=== PATIENT | female | born 1990 | race African-American/Black ===

== ENCOUNTER 2017-03-14 14:04 | Emergency (ER) | payer MEDICARE, OTHER ==
[~2017-03-14] VITALS: Ht 170.2 cm; Wt 113.4 kg
[2017-03-14 15:15] LABS: Basophils # (auto) 0 uL; Basophils % (auto) 0.4 % (0.0-2.0); Eosinophils # (auto) 0 uL; Eosinophils % (auto) 0.7 % (0.0-7.0); Hematocrit 39.9 % (36.0-46.0); Hemoglobin 12.9 g/dL (12.2-16.2); Lymphocytes # (auto) 1.3 uL; Lymphocytes % (auto) 18.8 % (10.0-50.0); Mean Corpuscular Hemoglobin 27.1 pg (28.0-32.0); Mean Corpuscular Hgb Conc. 32.5 g/dL (32.0-36.0); Mean Corpuscular Volume 83.5 fL (80.0-100.0); Mean Platelet Volume 7.5 fL (6.9-10.8); Monocytes # (auto) 0.8 uL; Monocytes % (auto) 11.4 % (0.0-12.0); Neutrophils # (auto) 4.6 uL; Neutrophils % (auto) 68.7 % (37.0-80.0); Nucleated Red Blood Cells % 0.1 %; Platelet Count (auto) 250 10^3/uL (140-450); Red Cell Distribution Width 13.9 % (11.8-14.3); White Blood Cell 6.7 10^3/uL (4.4-10.8)
[2017-03-14 15:34] LABS: Albumin 3.4 g/dL (3.4-5.0); BUN/Creatinine Ratio 13.2; Bilirubin, Total 0.6 mg/dL (0.2-1.0); Calcium 8.2 mg/dL (8.5-10.1); Potassium 3.7 mmol/L (3.5-5.1); Total Protein 7.5 g/dL (6.4-8.2)
[2017-03-14 15:52] LABS: Urine Bilirubin Negative (Negative); Urine Blood Negative /uL (Negative); Urine Color Yellow (Yellow); Urine Glucose Normal (Normal); Urine Ketone Negative (Negative); Urine Mucus FEW (None Seen); Urine Nitrite Negative (Negative); Urine RBC 2 /hpf (0 - 4); Urine Squamous Epithelial Cell FEW /hpf (<5); Urine Urobilinogen Normal (Negative)
[2017-03-14] MEDS ORDERED: cloNIDine HCL 0.1 MG TAB PO ONE (16:00)
[2017-03-14] MEDS ORDERED: HYDROcodone-ACET 10/325MG TAB PO ONE (17:15)
[2017-03-14 18:30] VITALS: BP 148/92
== END 2017-03-14 19:46 | disposition home or self-care (01) ==
LOC: ER 14:04
DX: R07.89 Other chest pain (principal); I10 Essential (primary) hypertension; R51 Headache; F17.210 Nicotine dependence, cigarettes, uncomplicated; Z86.73 Personal history of transient ischemic attack (TIA), and cerebral infarction without residual deficits
CPT/HCPCS: 36415; 70450; 71020; 80053; 81001; 81025; 84484; 85025; 93005

== ENCOUNTER 2018-03-20 18:36 | Emergency (ER) | payer MEDICARE, OTHER ==
[~2018-03-20] VITALS: Ht 157.5 cm; Wt 81.6 kg
[2018-03-20] MEDS ORDERED: SODIUM CHLORIDE 0.9% 1,000 ML IVB ONE (19:19)
[2018-03-20] MEDS ORDERED: PROCHLORPERAZINE EDISYLATE 5 MG/ML 2ML VIAL IV ONE (19:30)
[2018-03-20] MEDS ORDERED: MORPHINE SULFATE 4 MG/ML SYR/VIAL IV ONE (19:30)
[2018-03-20] MEDS ORDERED: PANTOPRAZOLE 40 MG/10 ML VIAL IV ONE (19:30)
[2018-03-20 20:31] LABS: Basophils # (auto) 0.1 uL; Basophils % (auto) 1.3 % (0.0-2.0); Eosinophils # (auto) 0.1 uL; Eosinophils % (auto) 1.1 % (0.0-7.0); Hematocrit 40.6 % (36.0-46.0); Hemoglobin 12.9 g/dL (12.2-16.2); Lymphocytes # (auto) 1.2 uL; Lymphocytes % (auto) 15.9 % (10.0-50.0); Mean Corpuscular Hemoglobin 26.3 pg (28.0-32.0); Mean Corpuscular Hgb Conc. 31.9 g/dL (32.0-36.0); Mean Corpuscular Volume 82.3 fL (80.0-100.0); Monocytes # (auto) 0.7 uL; Monocytes % (auto) 9.5 % (0.0-12.0); Neutrophils # (auto) 5.6 uL; Neutrophils % (auto) 72.2 % (37.0-80.0); Nucleated Red Blood Cells % 0.1 %; Platelet Count (auto) 296 10^3/uL (140-450); Red Blood Cells 4.93 10^6/uL (4.0-5.20); Red Cell Distribution Width 14.8 % (11.8-14.3); White Blood Cell 7.8 10^3/uL (4.4-10.8)
[2018-03-20 20:34] LABS: Alanine Aminotransferase 21 U/L (13-56); Albumin 3.7 g/dL (3.4-5.0); Anion Gap 9 (5-15); Aspartate Aminotransferase 13 U/L (15-37); BUN/Creatinine Ratio 10.5; Blood Urea Nitrogen 8 mg/dL (7-18); Calcium 7.8 mg/dL (8.5-10.1); Carbon Dioxide 25 mmol/L (21-32); Chloride 102 mmol/L (98-107); GFR African American 117 mL/min; GFR Non-African American 96 mL/min; Glucose 98 mg/dL (74-106); Magnesium 2.2 mg/dL (1.6-2.6); Potassium 3.4 mmol/L (3.5-5.1); Sodium 136 mmol/L (136-145)
[2018-03-20 20:39] LABS: Alkaline Phosphatase 97 U/L (45-117); Bilirubin, Total 0.4 mg/dL (0.2-1.0); Total Protein 8.2 g/dL (6.4-8.2)
[2018-03-20] MEDS ORDERED: traMADol HCL 50 MG TAB PO ONE (21:15)
[2018-03-20 22:00] VITALS: BP 150/98
== END 2018-03-20 22:05 | disposition home or self-care (01) ==
LOC: EDBD 18:36 → ER 18:41
DX: R07.9 Chest pain, unspecified (principal); F17.210 Nicotine dependence, cigarettes, uncomplicated; I10 Essential (primary) hypertension; Z86.73 Personal history of transient ischemic attack (TIA), and cerebral infarction without residual deficits
CPT/HCPCS: 36415; 71045; 80053; 83735; 84484; 84702; 85025; 93005; 94761; 99284; J7030

== ENCOUNTER 2018-10-15 09:30 | Emergency (ER) | payer MEDICARE, OTHER ==
[~2018-10-15] VITALS: Ht 160 cm; Wt 81.6 kg
[2018-10-15] MEDS ORDERED: SODIUM CHLORIDE 0.9% 1,000 ML IV ONE (09:36)
[2018-10-15] MEDS ORDERED: ASPirin 81 mg TAB PO ONE (09:45)
[2018-10-15 10:13] LABS: Basophils # (auto) 0 uL; Basophils % (auto) 0.3 % (0.0-2.0); Eosinophils # (auto) 0 uL; Eosinophils % (auto) 0.2 % (0.0-7.0); Hematocrit 41.8 % (36.0-46.0); Hemoglobin 13.7 g/dL (12.2-16.2); Lymphocytes # (auto) 0.9 uL; Lymphocytes % (auto) 11.5 % (10.0-50.0); Mean Corpuscular Hgb Conc. 32.8 g/dL (32.0-36.0); Mean Corpuscular Volume 82.4 fL (80.0-100.0); Monocytes # (auto) 0.4 uL; Monocytes % (auto) 5.4 % (0.0-12.0); Neutrophils # (auto) 6.4 uL; Neutrophils % (auto) 82.6 % (37.0-80.0); Platelet Count (auto) 239 10^3/uL (140-450); Red Blood Cells 5.07 10^6/uL (4.0-5.20); Red Cell Distribution Width 14.5 % (11.8-14.3); White Blood Cell 7.8 10^3/uL (4.4-10.8)
[2018-10-15 10:32] LABS: Albumin 3.8 g/dL (3.4-5.0); Anion Gap 5 (5-15); Blood Urea Nitrogen 16 mg/dL (7-18); Calcium 9.2 mg/dL (8.5-10.1); Carbon Dioxide 31 mmol/L (21-32); Chloride 101 mmol/L (98-107); Glucose 102 mg/dL (74-106); Potassium 3.5 mmol/L (3.5-5.1); Sodium 137 mmol/L (136-145)
[2018-10-15 10:41] LABS: Alanine Aminotransferase 23 U/L (13-56); Alkaline Phosphatase 85 U/L (45-117); Aspartate Aminotransferase 17 U/L (15-37); BUN/Creatinine Ratio 16.2; Bilirubin, Total 0.7 mg/dL (0.2-1.0); GFR African American 86 mL/min; GFR Non-African American 71 mL/min
[2018-10-15 12:00] LABS: Urine Bacteria FEW /hpf (None Seen); Urine Blood Negative /uL (Negative); Urine Hyaline Cast FEW /lpf (0 - 2); Urine Specific Gravity 1.018 (1.001-1.035); Urine WBC 1 /hpf (0 - 5)
[2018-10-15 13:13] VITALS: BP 130/86
== END 2018-10-15 13:26 | disposition home or self-care (01) ==
LOC: EDBD 09:30 → ER 09:30
DX: R07.89 Other chest pain (principal); F41.9 Anxiety disorder, unspecified; R41.82 Altered mental status, unspecified; I10 Essential (primary) hypertension; Z86.73 Personal history of transient ischemic attack (TIA), and cerebral infarction without residual deficits
CPT/HCPCS: 36415; 71045; 80053; 81001; 84484; 85025; 93005; 96360; 96361; 99284; J7030

== ENCOUNTER 2018-10-23 21:27 | Emergency (ER) | payer MEDICARE, OTHER ==
[~2018-10-23] VITALS: Ht 167.6 cm; Wt 81.6 kg
[2018-10-23 22:31] LABS: Urine WBC None Seen /hpf (0 - 5)
[2018-10-23 22:40] LABS: Eosinophils # (auto) 0.1 uL; Lymphocytes # (auto) 1.8 uL; Monocytes # (auto) 0.8 uL; Monocytes % (auto) 10.3 % (0.0-12.0); Platelet Count (auto) 246 10^3/uL (140-450); White Blood Cell 7.8 10^3/uL (4.4-10.8)
[2018-10-23 22:41] LABS: Basophils # (auto) 0 uL; Basophils % (auto) 0.6 % (0.0-2.0); Hematocrit 40.4 % (36.0-46.0); Hemoglobin 13.2 g/dL (12.2-16.2); Mean Corpuscular Hemoglobin 27.2 pg (28.0-32.0); Mean Corpuscular Hgb Conc. 32.8 g/dL (32.0-36.0); Mean Corpuscular Volume 82.9 fL (80.0-100.0); Neutrophils # (auto) 5.1 uL; Neutrophils % (auto) 65.1 % (37.0-80.0); Red Blood Cells 4.87 10^6/uL (4.0-5.20); Red Cell Distribution Width 14.2 % (11.8-14.3)
[2018-10-23 22:45] LABS: Urine Bacteria FEW /hpf (None Seen); Urine Blood Negative /uL (Negative)
[2018-10-23 22:50] LABS: Albumin 3.7 g/dL (3.4-5.0); Anion Gap 5 (5-15); Blood Urea Nitrogen 12 mg/dL (7-18); Calcium 8.6 mg/dL (8.5-10.1); Carbon Dioxide 26 mmol/L (21-32); Chloride 108 mmol/L (98-107); Glucose 98 mg/dL (74-106); INR 1.01 (0.9-1.15); Partial Thromboplastin Time 26.2 sec (23.64-32.05); Potassium 3.7 mmol/L (3.5-5.1); Sodium 139 mmol/L (136-145)
[2018-10-23 22:56] LABS: Alcohol, Urine < 3.0 mg/dL (0-5); Amphetamine Screen, Urine NEGATIVE (NEGATIVE); Barbiturate Scree,Urine NEGATIVE (NEGATIVE); Benzodiazephine Screen, Urine NEGATIVE (NEGATIVE); Cannabinoid Screen, Urine NEGATIVE (NEGATIVE); Cocaine Screen, Urine NEGATIVE (NEGATIVE); Opiate Scree,Urine NEGATIVE (NEGATIVE); Phencyclidine Screen, Urine NEGATIVE (NEGATIVE)
[2018-10-23] MEDS ORDERED: ONDANSETRON HCL 4 MG/2 ML VIAL IV ONE (23:00)
[2018-10-23] MEDS ORDERED: MORPHINE SULF INJ 2 MG/ML SYRINGE 1ML IV ONE (23:00)
[2018-10-23] MEDS ORDERED: LABETALOL HCL 5 MG/ML ML 20ML VIAL IV ONE (23:00)
[2018-10-23 23:04] LABS: Alanine Aminotransferase 28 U/L (13-56); Alkaline Phosphatase 84 U/L (45-117); Aspartate Aminotransferase 18 U/L (15-37); Bilirubin, Total 0.7 mg/dL (0.2-1.0); GFR African American 85 mL/min; GFR Non-African American 70 mL/min
[2018-10-24] MEDS ORDERED: LABETALOL HCL 5 MG/ML ML 20ML VIAL IV ONE
[2018-10-24 00:14] VITALS: BP 131/96
== END 2018-10-24 00:40 | disposition home or self-care (01) ==
LOC: EDBD 21:27 → ER 21:33
DX: I16.0 Hypertensive urgency (principal); Z86.73 Personal history of transient ischemic attack (TIA), and cerebral infarction without residual deficits; Z91.19 Patient's noncompliance with other medical treatment and regimen
CPT/HCPCS: 36415; 70450; 71045; 80053; 80307; 81001; 83880; 84484; 84702; 85025; 85610; 85730; 93005; 94761; 96374; 96375; 99284; J2270; J2405; J7030

== ENCOUNTER 2018-11-29 14:11 | Inpatient (IN) | payer MEDICARE, OTHER ==
[~2018-11-29] VITALS: Ht 162.6 cm; Wt 74.3 kg
[2018-11-29] MEDS ORDERED: SODIUM CHLORIDE 0.9% 1,000 ML IVB ONE (14:26)
[2018-11-29] MEDS ORDERED: MORPHINE SULFATE 4 MG/ML SYR/VIAL IV ONE (14:30)
[2018-11-29] MEDS ORDERED: FAMOTIDINE (10MG/ML) 2ML VL IV ONE (14:30)
[2018-11-29] MEDS ORDERED: ONDANSETRON HCL 4 MG/2 ML VIAL IV ONE (14:30)
[2018-11-29 15:42] LABS: Basophils # (auto) 0 uL; Basophils % (auto) 0.5 % (0.0-2.0); Eosinophils # (auto) 0 uL; Monocytes # (auto) 0.5 uL; Neutrophils % (auto) 80.6 % (37.0-80.0); White Blood Cell 7.5 10^3/uL (4.4-10.8)
[2018-11-29 15:49] LABS: Eosinophils % (auto) 0.5 % (0.0-7.0); Hematocrit 38.9 % (36.0-46.0); Hemoglobin 12.8 g/dL (12.2-16.2); Lymphocytes # (auto) 0.8 uL; Lymphocytes % (auto) 11.3 % (10.0-50.0); Mean Corpuscular Hemoglobin 27.2 pg (28.0-32.0); Mean Corpuscular Hgb Conc. 32.8 g/dL (32.0-36.0); Mean Corpuscular Volume 82.7 fL (80.0-100.0); Monocytes % (auto) 7.1 % (0.0-12.0); Nucleated Red Blood Cells % 0.1 %; Platelet Count (auto) 230 10^3/uL (140-450); Red Blood Cells 4.71 10^6/uL (4.0-5.20); Red Cell Distribution Width 13.9 % (11.8-14.3)
[2018-11-29 15:59] LABS: Albumin 3.6 g/dL (3.4-5.0); BUN/Creatinine Ratio 9.1; Calcium 8.2 mg/dL (8.5-10.1); Magnesium 2.1 mg/dL (1.6-2.6); Potassium 3.3 mmol/L (3.5-5.1)
[2018-11-29 16:09] LABS: Urine Amorphous Crystal FEW /hpf (None Seen); Urine Bacteria FEW /hpf (None Seen); Urine Blood 2+ /uL (Negative); Urine Mucus FEW (None Seen); Urine Specific Gravity 1.019 (1.001-1.035); Urine WBC 7 /hpf (0 - 5)
[2018-11-29 16:14] LABS: Bilirubin, Total 0.6 mg/dL (0.2-1.0); Total Protein 7.4 g/dL (6.4-8.2)
[2018-11-29] MEDS ORDERED: hydrALAZINE HCL 20 MG/ML VL IV ONE (16:45)
[2018-11-29] MEDS ORDERED: cefTRIAXone 1GM/50ML D5W 50 ML IV ONE (16:45)
[2018-11-29] MEDS ORDERED: PROMETHAZINE HCL 25 MG/ML 1ML IV PRN (18:30)
[2018-11-29] MEDS ORDERED: ACETAMINOPHEN 500 MG TAB PO PRN (18:30)
[2018-11-29] MEDS ORDERED: traMADol HCL 50 MG TAB PO PRN (18:30)
[2018-11-29] MEDS ORDERED: TEMAZEPAM 15 MG CAP PO PRN (18:30)
[2018-11-29] MEDS ORDERED: NITROGLYCERIN 0.4 MG SL TAB SL PRN (18:30)
[2018-11-29] MEDS ORDERED: MORPHINE SULF INJ 2 MG/ML SYRINGE 1ML IV PRN (18:30)
[2018-11-29 21:43] VITALS: BP 144/97
--- NOTE | 2018-11-29 22:00 | NUR ---
admitted to room 212A. Alert and oriented x4. Ambulatory, steady gait. Complaining of N/V and epigastric pain. IV to R hand 18 g patent. BP meds to be given. Patient states she doesnt take any medications at home. Skin warm dry and intact. Crackers and sandwich given per pt request. Oriented to room and hospital policies. Verbalized understanding.
[2018-11-29] MEDS: hydrALAZINE HCL 25 MG TAB PO SCH (23:29)
[2018-11-30 00:10] LABS: Alcohol, Urine < 3.0 mg/dL (0-5); Amphetamine Screen, Urine NEGATIVE (NEGATIVE); Barbiturate Scree,Urine NEGATIVE (NEGATIVE); Benzodiazephine Screen, Urine NEGATIVE (NEGATIVE); Cannabinoid Screen, Urine NEGATIVE (NEGATIVE); Cocaine Screen, Urine NEGATIVE (NEGATIVE); Opiate Scree,Urine NEGATIVE (NEGATIVE); Phencyclidine Screen, Urine NEGATIVE (NEGATIVE)
--- NOTE | 2018-11-30 02:00 | NUR ---
Patient states " Im super nauseous and i vomited and filled up a green bag. Patient had already dumped the emesis in the toilet. Advised her to call me next time and Ill take a look. Nausea medicine given per orders.
[2018-11-30 05:19] VITALS: BP 156/111
[2018-11-30] MEDS: hydrALAZINE HCL 25 MG TAB PO SCH ×3 (06:00→21:43)
--- NOTE | 2018-11-30 08:00 | NUR ---
PATIENT AWAKE ALERT ORIENTED TIMES 4 DENIES ANY CHEST PIN AT THIS TIME NO SIGNS OF DISTRESS.
[2018-11-30 09:00] VITALS: BP 142/96
[2018-11-30] MEDS ORDERED: NITROGLYCERIN 0.2MG/HR TOPICAL PATCH TD SCH (10:00)
[2018-11-30] MEDS ORDERED: ENALAPRIL MALEATE 10 MG TAB PO SCH (10:00)
[2018-11-30 10:05] LABS: Cholesterol 121 mg/dL (< 200); Triglycerides 32 mg/dL (< 150)
[2018-11-30 10:10] LABS: HDL Cholesterol 48 mg/dL (40-59); LDL Cholesterol 66 mg/dL (< 100)
[2018-11-30] MEDS: NITROGLYCERIN 0.2MG/HR TOPICAL PATCH TD SCH (10:36)
[2018-11-30] MEDS: PANTOPRAZOLE 40 MG TAB PO SCH (10:36)
[2018-11-30] MEDS: ENOXAPARIN SOD 40 MG/0.4 ML SYRINGE SC SCH (10:36)
[2018-11-30] MEDS: ASPirin 81 mg TAB PO SCH (10:37)
[2018-11-30] MEDS ORDERED: ENALAPRIL MALEATE 2.5 MG TAB PO ONE (10:45)
[2018-11-30] MEDS ORDERED: METOPROLOL TARTRATE 25 MG TAB PO ONE (10:45)
[2018-11-30] MEDS ORDERED: CLO01T PO (10:57)
--- NOTE | 2018-11-30 11:00 | NUR ---
CARDIOLOGY CONSULT BY SHANIA. STRESS TEST ORDERED.
[2018-11-30] MEDS ORDERED: ADENOSINE 62 MG in GIVE UN-DILUTED 0 ML IV STA (11:31)
[2018-11-30 13:00] VITALS: BP 148/107
[2018-11-30 17:21] VITALS: BP 145/105
--- NOTE | 2018-11-30 18:54 | NUR ---
PATIENT WASHED UP AND ACCIDENTALLY PULLED OUT IV AND IS REFUSING ANOTHER IV AT THIS TIME.
--- NOTE | 2018-11-30 19:50 | NUR ---
Opening shift Note Pt transferred to room 221-A in stable cond. Pt amb halls and observed to have steady gait. Pt denies any chest pain or SOB. POC discussed with pt and pt verbalized understanding. Will continue to monitor q 1 hr and prn. Bed is low, wheels are locked, and call light is with in reach.
[2018-11-30] MEDS: METOPROLOL TARTRATE 25 MG TAB PO SCH (21:44)
[2018-11-30 21:54] VITALS: BP 159/106
[2018-12-01 05:09] VITALS: BP 158/96
[2018-12-01] MEDS: hydrALAZINE HCL 25 MG TAB PO SCH ×3 (06:26→21:34)
[2018-12-01] MEDS: LACTULOSE 20Gm/30ML SOLN PO PRN (06:29)
[2018-12-01 09:00] VITALS: BP 152/89
[2018-12-01] MEDS: ASPirin 81 mg TAB PO SCH (09:35)
[2018-12-01] MEDS: ENOXAPARIN SOD 40 MG/0.4 ML SYRINGE SC SCH (09:36)
[2018-12-01] MEDS: PANTOPRAZOLE 40 MG TAB PO SCH (09:37)
[2018-12-01] MEDS: ENALAPRIL MALEATE 10 MG TAB PO SCH (09:37)
[2018-12-01] MEDS: NITROGLYCERIN 0.2MG/HR TOPICAL PATCH TD SCH (09:39)
[2018-12-01] MEDS: METOPROLOL TARTRATE 25 MG TAB PO SCH ×2 (09:39→21:35)
[2018-12-01 13:00] VITALS: BP 147/92
[2018-12-01 16:40] VITALS: BP 139/92
--- NOTE | 2018-12-01 19:30 | NUR ---
Opening Shift Note Assumed care of patient, awake and alert x4. Patient denies pain at this time. No S/S of distress/SOB noted. Instructed on plan of care and to call for assistance as needed. Bed is locked in lowest position, side rails x 2 are up, and call light is within reach.
--- NOTE | 2018-12-01 22:50 | NUR ---
IV INSERTION IV access obtained, via clean sterile technique by inserting 22 gauge catheter at left hand after 1 attempt. IV secured properly. No trauma to site. Patient tolerated well.
[2018-12-01 23:06] VITALS: BP 150/99
[2018-12-02] MEDS: hydrALAZINE HCL 25 MG TAB PO SCH ×3 (05:26→21:20)
[2018-12-02 06:01] VITALS: BP 150/95
[2018-12-02 09:00] VITALS: BP 161/114
--- NOTE | 2018-12-02 09:12 | NUR ---
PAGED DR JETER TO READ STRESS TEST AND ECHO AND PLACE A NOTE IF PATIENT IS CLEARED FOR DISCHARGE.
[2018-12-02] MEDS: ASPirin 81 mg TAB PO SCH (09:39)
[2018-12-02] MEDS: PANTOPRAZOLE 40 MG TAB PO SCH (09:40)
[2018-12-02] MEDS: ENALAPRIL MALEATE 10 MG TAB PO SCH (09:40)
[2018-12-02] MEDS: METOPROLOL TARTRATE 25 MG TAB PO SCH ×2 (09:40→21:20)
[2018-12-02] MEDS: NITROGLYCERIN 0.2MG/HR TOPICAL PATCH TD SCH (09:41)
[2018-12-02] MEDS: ENOXAPARIN SOD 40 MG/0.4 ML SYRINGE SC SCH (09:41)
[2018-12-02] MEDS ORDERED: ENALAPRIL MALEATE 10 MG TAB PO ONE (12:00)
--- NOTE | 2018-12-02 12:02 | NUR ---
SPOKE TO DR KING HE SAID HE WANTS BETTER BLOOD PRESSURE CONTROL. NEW ORDERS TO INCREASE ENALAPRIL TO 40 MG DAILY SO GIVE AN ADDITIONAL 20 MGS NOW.
[2018-12-02 13:00] VITALS: BP 140/106
[2018-12-02 17:00] VITALS: BP 156/114
--- NOTE | 2018-12-02 19:50 | NUR ---
IV REMOVAL IV to left hand resistant when flushing. IV DC'd with clean sterile technique, catheter fully intact. Pressure dressing applied to site. Patient tolerated well.
[2018-12-02 21:30] VITALS: BP 157/113
[2018-12-02] MEDS: LACTULOSE 20Gm/30ML SOLN PO PRN (22:28)
--- NOTE | 2018-12-02 22:50 | NUR ---
IV INSERTION IV access obtained, via clean sterile technique by inserting 22 gauge catheter at left forearm after 2 attempts. IV secured properly. No trauma to site. Patient tolerated well.
[2018-12-03 05:00] VITALS: BP 145/102
[2018-12-03] MEDS: hydrALAZINE HCL 25 MG TAB PO SCH (05:54)
[2018-12-03 09:00] VITALS: BP 145/116
[2018-12-03] MEDS: ASPirin 81 mg TAB PO SCH (09:07)
[2018-12-03] MEDS: METOPROLOL TARTRATE 25 MG TAB PO SCH (09:08)
[2018-12-03] MEDS: PANTOPRAZOLE 40 MG TAB PO SCH (09:09)
[2018-12-03] MEDS: ENOXAPARIN SOD 40 MG/0.4 ML SYRINGE SC SCH (09:10)
[2018-12-03] MEDS: NITROGLYCERIN 0.2MG/HR TOPICAL PATCH TD SCH (09:13)
[2018-12-03] MEDS ORDERED: ENALAPRIL MALEATE 10 MG TAB PO SCH (10:00)
[2018-12-03 12:43] VITALS: BP 144/99
--- NOTE | 2018-12-03 13:51 | NUR ---
DISCHARGE INSTRUCTIONS GIVEN TO PT AND FAMILY MEMBER. VERBALIZED UNDERSTANDING, ALL APPROPRIATE PAPERWORK SIGNED. RX GIVEN TO PT. PT DISCHARGED HOME WITH FAMILY MEMBERS.
== END 2018-12-03 13:30 | disposition home or self-care (01) | DRG 305 ==
LOC: EDBD 14:11 → ER 14:13 → TELE 14:14 → TELE-CENTR 20:07
PROVIDERS: ADMIT Internal Medicine; ATTEND Family Medicine
DX: I16.0 Hypertensive urgency (principal); N39.0 Urinary tract infection, site not specified; E66.01 Morbid (severe) obesity due to excess calories; R07.89 Other chest pain; F12.90 Cannabis use, unspecified, uncomplicated; H54.61 Unqualified visual loss, right eye, normal vision left eye; I10 Essential (primary) hypertension; Z86.73 Personal history of transient ischemic attack (TIA), and cerebral infarction without residual deficits; E87.6 Hypokalemia; Z68.28 Body mass index [BMI] 28.0-28.9, adult
CPT/HCPCS: 36415; 71045; 76705; 78452; 80053; 80061; 80307; 81001; 81025; 82550; 83735; 83880; 84443; 84484; 85025; 85379; 85652; 86141; 93005; 93017; 93306; G0378; J0153; J0696; J2405; J3490

== ENCOUNTER 2019-01-20 16:44 | Inpatient (IN) | payer MEDICARE, OTHER ==
[~2019-01-20] VITALS: Ht 167.6 cm; Wt 83.9 kg
[~2019-01-20 16:44] MED LIST: CLO01T PO
[2019-01-20 17:54] LABS: Basophils # (auto) 0 uL; Basophils % (auto) 0.4 % (0.0-2.0); Eosinophils # (auto) 0 uL; Eosinophils % (auto) 0.5 % (0.0-7.0); Hematocrit 40.5 % (36.0-46.0); Hemoglobin 13.1 g/dL (12.2-16.2); Lymphocytes # (auto) 0.9 uL; Lymphocytes % (auto) 12.7 % (10.0-50.0); Mean Corpuscular Hemoglobin 27.1 pg (28.0-32.0); Mean Corpuscular Hgb Conc. 32.4 g/dL (32.0-36.0); Mean Corpuscular Volume 83.6 fL (80.0-100.0); Monocytes # (auto) 0.6 uL; Monocytes % (auto) 8.4 % (0.0-12.0); Neutrophils # (auto) 5.6 uL; Nucleated Red Blood Cells % 0.1 %; Platelet Count (auto) 244 10^3/uL (140-450); Red Blood Cells 4.85 10^6/uL (4.0-5.20); Red Cell Distribution Width 13.8 % (11.8-14.3); White Blood Cell 7.2 10^3/uL (4.4-10.8)
[2019-01-20] MEDS ORDERED: hydrALAZINE HCL 20 MG/ML VL IV ONE (18:00)
[2019-01-20 18:23] LABS: Albumin 3.5 g/dL (3.4-5.0); BUN/Creatinine Ratio 11.3; Calcium 8.6 mg/dL (8.5-10.1)
[2019-01-20 18:26] LABS: Total Protein 7.7 g/dL (6.4-8.2)
[2019-01-20 18:34] LABS: Partial Thromboplastin Time 26.2 sec (23.64-32.05)
[2019-01-20] MEDS ORDERED: ONDANSETRON HCL 4 MG/2 ML VIAL ONE (18:56)
[2019-01-20] MEDS ORDERED: ONDANSETRON HCL 4 MG/2 ML VIAL IV ONE (19:00)
[2019-01-20] MEDS ORDERED: cloNIDine HCL 0.1 MG TAB PO PRN (21:00)
[2019-01-20] MEDS ORDERED: ONDANSETRON HCL 4 MG/2 ML VIAL IV PRN (21:00)
[2019-01-20] MEDS ORDERED: ACETAMINOPHEN 500 MG TAB PO PRN (21:00)
[2019-01-20] MEDS ORDERED: cloNIDine HCL 0.1 MG TAB ONE (21:31)
[2019-01-20 22:00] VITALS: BP 162/117
[2019-01-20] MEDS ORDERED: cefTRIAXone 1GM/50ML D5W 50 ML IV ONE (22:00)
[2019-01-20] MEDS ORDERED: cloNIDine HCL 0.1 MG TAB PO ONE (22:00)
[2019-01-20 22:40] VITALS: BP 162/117
[2019-01-20] MEDS: hydrALAZINE HCL 25 MG TAB PO SCH (22:43)
--- NOTE | 2019-01-20 22:44 | NUR ---
PATIENT'S BP 162/117 AFTER PRN MEDICATION GIVEN IN THE ER EARLIER, SCHEDULED BP MEDICATION GIVEN ORDERED AT THIS TIME. CONTINUE TO MONITOR.
--- NOTE | 2019-01-20 22:44 | NUR ---
Telemetry admit from ER WILLIAN WILLAMS admitted to Telemetry unit after SBAR received. Patient oriented to Elio Chauhan, primary RN, unit, room, bed, and unit policies regarding patient care and visiting hours. Patient now on continuous telemetry monitoring, tele box # [55] and telemetry reading on arrival to unit is [SR [id number]]. Patient weighed by bedscale and encouraged to call if they need something. All questions and concerns addressed, patient verbalized understanding. Note: []
--- NOTE | 2019-01-20 23:00 | NUR ---
PT STATES THAT HER MOTHER WILL BRING IN A LIST OF CURRENT HOME MEDS TOMORROW.
--- NOTE | 2019-01-20 23:43 | NUR ---
REASSESSED BP 118/68, HR 96. CONTINUE TO MONITOR.
[2019-01-21] MEDS ORDERED: INFLUENZA QUAD 2019-2020 0.5ml SYRG IM ONE (00:15)
--- NOTE | 2019-01-21 03:19 | NUR ---
PATIENT SLEEPING. NO S/S OF DISTRESS NOTED. CONTINUE CARE.
[2019-01-21] MEDS: hydrALAZINE HCL 25 MG TAB PO SCH ×3 (06:16→21:34)
[2019-01-21] MEDS: PANTOPRAZOLE 40 MG TAB PO SCH (06:17)
[2019-01-21 07:08] LABS: Potassium 3.7 mmol/L (3.5-5.1)
[2019-01-21 07:14] LABS: BUN/Creatinine Ratio 12.2; Calcium 8.4 mg/dL (8.5-10.1)
--- NOTE | 2019-01-21 07:19 | NUR ---
REPORT GIVEN TO DAY SHIFT RN PARRISH. PATIENT REPORTED HARD STOOL THIS MORNING, AND REQUESTED STOOL SOFTENER. PARRISH VERBALIZED UNDERSTANDING AND WILL CALL MD FOR THE MEDICATION. CONTINUE CARE.
[2019-01-21 07:32] LABS: Basophils # (auto) 0 uL; Basophils % (auto) 0.5 % (0.0-2.0); Eosinophils # (auto) 0 uL; Eosinophils % (auto) 0.4 % (0.0-7.0); Hematocrit 39.5 % (36.0-46.0); Hemoglobin 12.9 g/dL (12.2-16.2); Lymphocytes # (auto) 1.5 uL; Lymphocytes % (auto) 17.1 % (10.0-50.0); Mean Corpuscular Hemoglobin 27.2 pg (28.0-32.0); Mean Corpuscular Hgb Conc. 32.6 g/dL (32.0-36.0); Mean Corpuscular Volume 83.4 fL (80.0-100.0); Monocytes # (auto) 0.9 uL; Monocytes % (auto) 10.3 % (0.0-12.0); Neutrophils # (auto) 6.5 uL; Neutrophils % (auto) 71.7 % (37.0-80.0); Platelet Count (auto) 253 10^3/uL (140-450); Red Blood Cells 4.73 10^6/uL (4.0-5.20); Red Cell Distribution Width 13.8 % (11.8-14.3)
--- NOTE | 2019-01-21 08:00 | NUR ---
RECEIVED PATIENT ALERT AND ORIENTED, ON DNR STATUS, FULL CODE, RT. EYE BLINDNESS NOTED, CLEAR LS IN BILATERAL LS, RR=18 SAT=94%, IN RA, DEEP BREATHING AND COUGHING AND ENCOURAGED, DEMONSTRATED AND VERBALIZED UNDERSTANDING WELL, SR R=98 ON TELE MONITOR, DENIED CHEST PAIN OR DISCOMFORT AT THIS MOMENT, ABDOMEN SOFT WITH ACTIVE BS, LAT BM ON 01/20/19 REPORTED, SKIN DRY AND INTACT, POSITION CHANGE ENCOURAGED, DEMONSTRATED WELL AND TOLERATED WELL, RADIAL AND PEDAL PULSES PALPABLE, CAP REFILL<3 SECONDS, RESTING ON BED, DENIED PAIN, HEAD OF BED ELEVATED, BED ON LOW POSITION, RAILS UP X2, CALL LIGHT ON REACH, WILL CONTINUE MONITORING.
[2019-01-21 08:45] VITALS: BP 129/84
--- NOTE | 2019-01-21 09:55 | NUR ---
LT. IV SITE CLEANED, FLASHED CLEAR, DRESSING WAS CHANGED, TOLERATED WELL,
[2019-01-21] MEDS ORDERED: ENALAPRIL MALEATE 10 MG TAB PO SCH (10:00)
[2019-01-21] MEDS ORDERED: LACTULOSE 20Gm/30ML SOLN PO ONE (11:15)
[2019-01-21] MEDS ORDERED: METOPROLOL TARTRATE 25 MG TAB PO ONE (11:30)
[2019-01-21] MEDS ORDERED: LIDOCAINE 2%HCL (LOCAL ANESTH.) INJ 20ML MDV ONE (11:39)
[2019-01-21 12:56] VITALS: BP 137/86
--- NOTE | 2019-01-21 16:00 | NUR ---
NOT COMPLIANT WITH TELE MONITOR, TOLERATED SHOWER, NOT IN DISTRESS, DENIED PAIN, RESTING ON BED.
[2019-01-21 17:00] VITALS: BP 137/92
--- NOTE | 2019-01-21 20:00 | NUR ---
Opening Shift Note Assumed care of patient, awake and alert. No S/S of distress/SOB or pain. Instructed on POC and to call for assist PRN, will continue to monitor for changes Q1hr and PRN.
--- NOTE | 2019-01-21 20:11 | NUR ---
NOT IN DISTRESS, DENIED PAIN, TOLERATED DINNER WELL, REPORT WAS GIVEN TO THE TRIMMER MACHINE RN.
[2019-01-21] MEDS: LACTULOSE 20Gm/30ML SOLN PO SCH (21:46)
[2019-01-21] MEDS ORDERED: METOPROLOL TARTRATE 25 MG TAB PO SCH (22:00)
[2019-01-21 23:43] VITALS: BP 141/93
[2019-01-22] MEDS: PANTOPRAZOLE 40 MG TAB PO SCH (05:50)
[2019-01-22] MEDS: hydrALAZINE HCL 25 MG TAB PO SCH ×2 (05:50→14:36)
[2019-01-22 05:52] VITALS: BP 133/91
--- NOTE | 2019-01-22 07:28 | NUR ---
Care report given to Roslyn Loera, patient has no complaints the whole night.
--- NOTE | 2019-01-22 08:00 | NUR ---
RECEIVED PATIENT ALERT AND ORIENTED X4, NOT IN DISTRESS, CLEAR LS IN BILATERAL LUNG LOBES, RR=18 SAT=96%, DEEP BREATHING AND COUGHING ENCOURAGED, DEMONSTRATED AND VERBALIZED UNDERSTANDING WELL, S TACH R=111 ON TELE MONITOR, DENIED CHEST PAIN OR DISCOMFORT AT THIS MOMENT, ABDOMEN SOFT WITH ACTIVE BS, NO BM NOTED THIS MORNING, SKIN DRY AND INTACT, WARM TO TOUCH, RADIAL AND PEDAL PULSES PALPABLE, CAP REFILL<3 SECONDS, RESTING ON BED, HEAD OF BED ELEVATED, BED ON LOW POSITION, RAILS UP X2, CALL LIGHT ON REACH, WILL CONTINUE MONITORING.
[2019-01-22 09:00] VITALS: BP 130/80
[2019-01-22] MEDS ORDERED: ENALAPRIL MALEATE 10 MG TAB PO SCH (10:00)
[2019-01-22] MEDS ORDERED: METOPROLOL TARTRATE 50 MG TAB PO SCH (10:00)
[2019-01-22] MEDS: LACTULOSE 20Gm/30ML SOLN PO SCH (10:00)
[2019-01-22] MEDS ORDERED: MET50T PO (10:27)
[2019-01-22] MEDS ORDERED: HYDR-2691 PO (10:27)
[2019-01-22] MEDS ORDERED: ENAL10TA2 PO (10:27)
[2019-01-22 11:51] VITALS: BP 130/80
[2019-01-22 13:00] VITALS: BP 135/98
[2019-01-22 14:53] VITALS: BP 135/98
--- NOTE | 2019-01-22 15:36 | NUR ---
D/C INSTRUCTIONS PROVIDED, VERBALIZED UNDERSTANDING, FOLLOW UP APPOINTMENT ARRANGEMENT WITH PCP INFORMATION PROVIDED, D/C TELE AND IV SITE, TOLERATED WELL, VS T=97.6 RR=18 SAT=95% P=88 IP=070/70, NOT IN DISTRESS, DENIED PAIN, WC PROVIDED, D/C HOME WALKING, TOOK ALL BELONGINGS AND LEFT NOTHING BEHIND.
== END 2019-01-22 15:35 | disposition home or self-care (01) | DRG 392 ==
LOC: ER 16:44 → EDBD 16:44 → TELE 16:45 → TELE-WESTW 21:58
PROVIDERS: ADMIT Nurse Practitioner Family; ATTEND Internal Medicine
DX: K59.00 Constipation, unspecified (principal); I10 Essential (primary) hypertension; H54.61 Unqualified visual loss, right eye, normal vision left eye; Z86.73 Personal history of transient ischemic attack (TIA), and cerebral infarction without residual deficits
CPT/HCPCS: 36415; 70450; 71046; 80048; 80053; 83735; 84484; 84702; 85025; 85610; 85730; 93005; 94761; 96374; 96375; G0378; J0696; J2405

== ENCOUNTER 2021-08-13 16:09 | Inpatient (IN) | payer MEDICARE, OTHER ==
[~2021-08-13] VITALS: Ht 165.1 cm; Wt 72.3 kg
[~2021-08-13 16:09] MED LIST changes: -CLO01T PO; +ENAL10TA13 PO; +HYDR25TA87 PO; +MET50T PO
[2021-08-13] MEDS ORDERED: LABETALOL HCL 5 MG/ML 4ML SYRINGE IV ONE ×2 (16:45→19:00)
[2021-08-13] MEDS ORDERED: NITROGLYCERIN 0.4 MG SL TAB SL ONE (17:45)
[2021-08-13] MEDS ORDERED: ASPirin 325 MG TAB PO ONE (17:45)
[2021-08-13 17:50] LABS: Albumin 3.5 g/dL (3.4-5.0); Calcium 9.2 mg/dL (8.5-10.1); Magnesium 2.2 mg/dL (1.6-2.6); Potassium 3.6 mmol/L (3.5-5.1)
[2021-08-13 17:55] LABS: BUN/Creatinine Ratio 16.5; Bilirubin, Total 0.6 mg/dL (0.2-1.0)
[2021-08-13 17:57] LABS: Basophils # (auto) 0.1 10 ^3/uL (0-0.2); Basophils % (auto) 0.9 % (0.0-2.0); Eosinophils # (auto) 0.1 10 ^3/uL (0-0.8); Eosinophils % (auto) 1.8 % (0.0-7.0); Hematocrit 33.5 % (36.0-46.0); Hemoglobin 10.8 g/dL (12.2-16.2); Lymphocytes # (auto) 1.4 10 ^3/uL (0.4-5.4); Lymphocytes % (auto) 19.8 % (10.0-50.0); Mean Corpuscular Hemoglobin 24.4 pg (28.0-32.0); Mean Corpuscular Hgb Conc. 32.3 g/dL (32.0-36.0); Mean Corpuscular Volume 75.4 fL (80.0-100.0); Monocytes # (auto) 0.6 10 ^3/uL (0-1.3); Monocytes % (auto) 8.7 % (0.0-12.0); Neutrophils # (auto) 4.9 10 ^3/uL (1.6-8.6); Neutrophils % (auto) 68.8 % (37.0-80.0); Nucleated Red Blood Cells % 0.3 %; Red Blood Cells 4.44 10^6/uL (4.0-5.20); Red Cell Distribution Width 16.9 % (11.8-14.3); White Blood Cell 7.2 10^3/uL (4.4-10.8)
[2021-08-13 19:39] LABS: Urine Bacteria FEW /hpf (None Seen); Urine Blood Negative /uL (Negative); Urine Specific Gravity 1.016 (1.001-1.035); Urine WBC 3 /hpf (0 - 5)
[2021-08-13 19:58] LABS: Alcohol, Urine < 3.0 mg/dL (0-10); Amphetamine Screen, Urine NEGATIVE (NEGATIVE); Barbiturate Scree,Urine NEGATIVE (NEGATIVE); Benzodiazephine Screen, Urine NEGATIVE (NEGATIVE); Cannabinoid Screen, Urine NEGATIVE (NEGATIVE); Cocaine Screen, Urine NEGATIVE (NEGATIVE); Opiate Scree,Urine NEGATIVE (NEGATIVE); Phencyclidine Screen, Urine NEGATIVE (NEGATIVE)
[2021-08-13] MEDS ORDERED: HYDROcodone-ACET 5/325MG TAB PO PRN (22:15)
[2021-08-13] MEDS ORDERED: ONDANSETRON HCL 4 MG/2 ML VIAL IV PRN (22:15)
[2021-08-13] MEDS ORDERED: hydrALAZINE HCL 25 MG TAB PO ONE (23:30)
[2021-08-14] VITALS (8 sets, daily range): BP systolic 132–180; BP diastolic 92–126
[2021-08-14] MEDS ORDERED: NITROGLYCERIN 0.4 MG SL TAB SL PRN
[2021-08-14] MEDS ORDERED: MORPHINE SULFATE INJECTION 2 MG/ML SYRG IV PRN
[2021-08-14] MEDS ORDERED: CLON0.1T (01:13)
[2021-08-14] MEDS: SODIUM CHLOR 0.9% PF (SALINE LOCK) 10ML VIAL/SYR IV SCH ×3 (05:41→21:42)
[2021-08-14] MEDS ORDERED: hydrALAZINE HCL 25 MG TAB PO SCH (06:00)
[2021-08-14 07:36] LABS: Basophils # (auto) 0 10 ^3/uL (0-0.2); Eosinophils # (auto) 0.1 10 ^3/uL (0-0.8); Lymphocytes # (auto) 1.2 10 ^3/uL (0.4-5.4); Monocytes # (auto) 0.8 10 ^3/uL (0-1.3); Nucleated Red Blood Cells % 0.1 %
[2021-08-14 07:37] LABS: Basophils % (auto) 0.6 % (0.0-2.0); Eosinophils % (auto) 1.2 % (0.0-7.0); Hematocrit 33.8 % (36.0-46.0); Hemoglobin 11.2 g/dL (12.2-16.2); Lymphocytes % (auto) 15.1 % (10.0-50.0); Mean Corpuscular Hemoglobin 24.7 pg (28.0-32.0); Mean Corpuscular Hgb Conc. 33.1 g/dL (32.0-36.0); Mean Corpuscular Volume 74.6 fL (80.0-100.0); Monocytes % (auto) 9.7 % (0.0-12.0); Neutrophils # (auto) 5.9 10 ^3/uL (1.6-8.6); Neutrophils % (auto) 73.4 % (37.0-80.0); Red Blood Cells 4.53 10^6/uL (4.0-5.20); White Blood Cell 8.1 10^3/uL (4.4-10.8)
[2021-08-14] MEDS: DOCUSATE SOD 100 MG CAP PO PRN (07:44)
[2021-08-14] MEDS: ACETAMINOPHEN 325 MG TAB PO PRN (07:44)
[2021-08-14 07:55] LABS: Albumin 3.4 g/dL (3.4-5.0); Calcium 8.8 mg/dL (8.5-10.1); Potassium 3.9 mmol/L (3.5-5.1)
[2021-08-14 07:57] LABS: BUN/Creatinine Ratio 14.3
[2021-08-14 07:59] LABS: Bilirubin, Total 0.6 mg/dL (0.2-1.0); Total Protein 7.6 g/dL (6.4-8.2)
[2021-08-14] MEDS: ASPirin 81 mg TAB PO SCH (09:16)
[2021-08-14] MEDS: METOPROLOL TARTRATE 50 MG TAB PO SCH ×2 (09:17→21:42)
[2021-08-14] MEDS ORDERED: cloNIDine HCL 0.1 MG TAB PO PRN (09:30)
[2021-08-14] MEDS ORDERED: cefTRIAXone 1GM/50ML D5W 50 ML IV ONE (09:30)
[2021-08-14] MEDS ORDERED: ENOXAPARIN SOD 40 MG/0.4 ML SYRINGE SC SCH (10:00)
[2021-08-14] MEDS ORDERED: amLODIPine BESYLATE 5 MG TAB PO SCH (10:00)
[2021-08-14] MEDS ORDERED: HCTZ 25 MG TAB PO ONE (10:30)
[2021-08-14 12:29] LABS: Cholesterol 167 mg/dL (< 200)
[2021-08-14 12:32] LABS: HDL Cholesterol 68 mg/dL (40-59); LDL Cholesterol 98 mg/dL (< 100); Triglycerides 42 mg/dL (< 150)
[2021-08-14] MEDS: NIFEdipine ER 30 MG TAB PO SCH (13:09)
[2021-08-14] MEDS: hydrALAZINE HCL 25 MG TAB PO SCH ×2 (15:28→21:41)
[2021-08-15 05:30] VITALS: BP 91/46
[2021-08-15] MEDS: hydrALAZINE HCL 25 MG TAB PO SCH ×3 (06:00→22:46)
[2021-08-15] MEDS: SODIUM CHLOR 0.9% PF (SALINE LOCK) 10ML VIAL/SYR IV SCH ×3 (06:16→22:48)
[2021-08-15] MEDS: cefTRIAXone 1GM/50ML D5W 50 ML IV SCH ×2 (08:49→11:52)
[2021-08-15] MEDS: DOCUSATE SOD 100 MG CAP PO PRN (08:49)
[2021-08-15] MEDS: ACETAMINOPHEN 325 MG TAB PO PRN (08:49)
[2021-08-15 09:00] VITALS: BP 109/68
[2021-08-15] MEDS ORDERED: HCTZ 25 MG TAB PO SCH (10:00)
[2021-08-15] MEDS: METOPROLOL TARTRATE 50 MG TAB PO SCH ×2 (11:53→22:47)
[2021-08-15] MEDS: ASPirin 81 mg TAB PO SCH (11:54)
[2021-08-15] MEDS: NIFEdipine ER 30 MG TAB PO SCH (11:54)
[2021-08-15 12:00] VITALS: BP 123/85
[2021-08-15] MEDS: DAPAGLIFLOZIN 5 MG TAB PO SCH (16:04)
[2021-08-15 17:13] VITALS: BP 124/83
[2021-08-15 22:00] VITALS: BP 117/82
[2021-08-15] MEDS ORDERED: SACUBITRIL-VALSARTAN 24mg/26mg TAB PO SCH (22:00)
[2021-08-16 05:00] VITALS: BP 97/55
[2021-08-16] MEDS: hydrALAZINE HCL 25 MG TAB PO SCH ×2 (06:00→14:20)
[2021-08-16] MEDS: SODIUM CHLOR 0.9% PF (SALINE LOCK) 10ML VIAL/SYR IV SCH ×2 (06:13→14:18)
[2021-08-16] MEDS: cefTRIAXone 1GM/50ML D5W 50 ML IV SCH (08:28)
[2021-08-16 09:09] VITALS: BP 102/78
[2021-08-16] MEDS ORDERED: SACUBITRIL-VALSARTAN 24mg/26mg TAB PO SCH (10:00)
[2021-08-16] MEDS: DAPAGLIFLOZIN 5 MG TAB PO SCH (10:00)
[2021-08-16] MEDS ORDERED: SACU1TAB PO (10:07)
[2021-08-16] MEDS ORDERED: LEVO500T31 PO (10:07)
[2021-08-16] MEDS ORDERED: HYDR25TA87 PO (10:07)
[2021-08-16] MEDS ORDERED: ASPI1CHW15 PO (10:07)
[2021-08-16] MEDS ORDERED: MET50T PO (10:07)
[2021-08-16] MEDS: METOPROLOL TARTRATE 50 MG TAB PO SCH (11:17)
[2021-08-16] MEDS: ASPirin 81 mg TAB PO SCH (11:17)
[2021-08-16 12:55] VITALS: BP 120/92
[2021-08-16 13:02] VITALS: BP 120/92
[2021-08-16] MEDS: ACETAMINOPHEN 325 MG TAB PO PRN (14:19)
[2021-08-16 16:45] VITALS: BP 118/90
== END 2021-08-16 21:55 | disposition home health service (06) | DRG 304 ==
LOC: EDBD 16:09 → ER 16:09 → EDUNIT# 16:09 → TELE-CENTR 23:47
PROVIDERS: ADMIT Nurse Practitioner Family; ATTEND Internal Medicine
DX: I16.1 Hypertensive emergency (principal); I67.83 Posterior reversible encephalopathy syndrome; I50.23 Acute on chronic systolic (congestive) heart failure; G93.40 Encephalopathy, unspecified; N39.0 Urinary tract infection, site not specified; H54.61 Unqualified visual loss, right eye, normal vision left eye; K42.9 Umbilical hernia without obstruction or gangrene; D64.9 Anemia, unspecified; I34.0 Nonrheumatic mitral (valve) insufficiency; F41.9 Anxiety disorder, unspecified; R73.9 Hyperglycemia, unspecified; R07.89 Other chest pain; I11.0 Hypertensive heart disease with heart failure; Z79.82 Long term (current) use of aspirin; Z82.49 Family history of ischemic heart disease and other diseases of the circulatory system; Z91.19 Patient's noncompliance with other medical treatment and regimen; Z83.3 Family history of diabetes mellitus; Z86.73 Personal history of transient ischemic attack (TIA), and cerebral infarction without residual deficits
CPT/HCPCS: 36415; 70450; 70551; 71045; 74176; 80053; 80061; 80307; 81001; 82962; 83036; 83735; 84484; 85025; 85652; 93005; 93306; 93886; 95819; 96374; 96376; 99291; G0378; J0696; J3490

== ENCOUNTER 2021-08-22 17:29 | Inpatient (IN) | payer MEDICARE, OTHER ==
[~2021-08-22] VITALS: Ht 167.6 cm; Wt 77.8 kg
[~2021-08-22 17:29] MED LIST changes: +ASPI1CHW15 PO; +CLON0.1T; +LEVO500T31 PO; +SACU1TAB PO
[2021-08-22 20:40] LABS: Urine Bacteria FEW /hpf (None Seen); Urine Blood Negative /uL (Negative); Urine Mucus FEW (None Seen); Urine Specific Gravity 1.017 (1.001-1.035); Urine WBC 29 /hpf (0 - 5)
[2021-08-22 20:46] LABS: Basophils # (auto) 0 10 ^3/uL (0-0.2); Basophils % (auto) 0.7 % (0.0-2.0); Eosinophils # (auto) 0 10 ^3/uL (0-0.8); Eosinophils % (auto) 0.5 % (0.0-7.0); Hematocrit 34.8 % (36.0-46.0); Hemoglobin 11.4 g/dL (12.2-16.2); Lymphocytes # (auto) 1.3 10 ^3/uL (0.4-5.4); Lymphocytes % (auto) 21.3 % (10.0-50.0); Mean Corpuscular Hemoglobin 24.5 pg (28.0-32.0); Mean Corpuscular Hgb Conc. 32.7 g/dL (32.0-36.0); Mean Corpuscular Volume 75.1 fL (80.0-100.0); Monocytes # (auto) 0.6 10 ^3/uL (0-1.3); Monocytes % (auto) 9.6 % (0.0-12.0); Neutrophils # (auto) 4.3 10 ^3/uL (1.6-8.6); Neutrophils % (auto) 67.9 % (37.0-80.0); Nucleated Red Blood Cells % 0.2 %; Red Blood Cells 4.63 10^6/uL (4.0-5.20); Red Cell Distribution Width 17.1 % (11.8-14.3); White Blood Cell 6.3 10^3/uL (4.4-10.8)
[2021-08-22 21:03] LABS: Albumin 3.2 g/dL (3.4-5.0); BUN/Creatinine Ratio 10.7; Calcium 8.3 mg/dL (8.5-10.1); Potassium 3.7 mmol/L (3.5-5.1)
[2021-08-22 21:06] LABS: Bilirubin, Total 0.5 mg/dL (0.2-1.0); Total Protein 7.2 g/dL (6.4-8.2)
[2021-08-22] MEDS ORDERED: ALUM & MAG HYDROX-SIMETH LIQ(MAALOX) 30 ML PO ONE (21:30)
[2021-08-22] MEDS ORDERED: FAMOTIDINE 20 MG TAB PO ONE (21:30)
[2021-08-22] MEDS ORDERED: ONDANSETRON ODT 4 MG TAB PO ONE (21:30)
[2021-08-22] MEDS ORDERED: cefTRIAXone 1GM/50ML D5W 50 ML IV ONE (21:45)
[2021-08-22 22:45] LABS: Magnesium 2.1 mg/dL (1.6-2.6); Phosphorus 3.8 mg/dL (2.5-4.90)
[2021-08-22] MEDS ORDERED: NITROGLYCERIN 0.4 MG SL TAB SL PRN (23:15)
[2021-08-22] MEDS ORDERED: MORPHINE SULFATE INJ 2 MG/ml SYRG IV PRN (23:15)
[2021-08-22] MEDS ORDERED: cloNIDine HCL 0.1 MG TAB PO PRN (23:15)
[2021-08-22] MEDS ORDERED: ONDANSETRON HCL 4 MG/2 ML VIAL IV PRN (23:15)
[2021-08-22] MEDS ORDERED: ACETAMINOPHEN 325 MG TAB PO PRN (23:15)
[2021-08-22] MEDS ORDERED: TEMAZEPAM 15 MG CAP PO PRN (23:15)
[2021-08-23] VITALS (7 sets, daily range): BP systolic 114–154; BP diastolic 76–115
[2021-08-23 05:58] LABS: Eosinophils # (auto) 0 10 ^3/uL (0-0.8); Nucleated Red Blood Cells % 0.1 %
[2021-08-23 06:08] LABS: Basophils # (auto) 0.2 10 ^3/uL (0-0.2); Basophils % (auto) 3.2 % (0.0-2.0); Eosinophils % (auto) 0.4 % (0.0-7.0); Hemoglobin 10.2 g/dL (12.2-16.2); Lymphocytes # (auto) 0.8 10 ^3/uL (0.4-5.4); Lymphocytes % (auto) 13.3 % (10.0-50.0); Mean Corpuscular Hemoglobin 24.6 pg (28.0-32.0); Mean Corpuscular Volume 74.7 fL (80.0-100.0); Monocytes # (auto) 0.6 10 ^3/uL (0-1.3); Monocytes % (auto) 9.8 % (0.0-12.0); Neutrophils # (auto) 4.2 10 ^3/uL (1.6-8.6); Neutrophils % (auto) 73.3 % (37.0-80.0); Red Blood Cells 4.15 10^6/uL (4.0-5.20); Red Cell Distribution Width 17.2 % (11.8-14.3); White Blood Cell 5.7 10^3/uL (4.4-10.8)
[2021-08-23 06:16] LABS: BUN/Creatinine Ratio 13.9; Calcium 7.7 mg/dL (8.5-10.1); Potassium 3.3 mmol/L (3.5-5.1)
[2021-08-23] MEDS: cefTRIAXone 1GM/50ML D5W 50 ML IV SCH (09:50)
[2021-08-23] MEDS: SACUBITRIL-VALSARTAN 24mg/26mg TAB PO SCH ×2 (09:51→22:16)
[2021-08-23] MEDS: ASPirin 81 mg TAB PO SCH (09:51)
[2021-08-23] MEDS: METOPROLOL TARTRATE 25 MG TAB PO SCH ×2 (09:53→22:17)
[2021-08-23] MEDS ORDERED: ENOXAPARIN SOD 40 MG/0.4 ML SYRINGE SC SCH (10:00)
[2021-08-23] MEDS ORDERED: POTASSIUM CHL 20 Meq TABLET PO ONE (16:00)
[2021-08-24 06:08] VITALS: BP 147/101
[2021-08-24] MEDS: cefTRIAXone 1GM/50ML D5W 50 ML IV SCH (08:42)
[2021-08-24] MEDS: METOPROLOL TARTRATE 25 MG TAB PO SCH ×2 (08:43→21:29)
[2021-08-24] MEDS: SACUBITRIL-VALSARTAN 24mg/26mg TAB PO SCH ×2 (08:43→21:30)
[2021-08-24] MEDS: ASPirin 81 mg TAB PO SCH (08:43)
[2021-08-24 09:00] VITALS: BP 139/100
[2021-08-24] MEDS: hydrALAZINE HCL 25 MG TAB PO SCH ×2 (12:59→21:28)
[2021-08-24 13:00] VITALS: BP 168/107
[2021-08-24 14:51] VITALS: BP 140/95
[2021-08-24 17:00] VITALS: BP 154/114
[2021-08-24 21:46] VITALS: BP 157/109
[2021-08-25] VITALS (8 sets, daily range): BP systolic 113–174; BP diastolic 83–124
[2021-08-25] MEDS: hydrALAZINE HCL 25 MG TAB PO SCH ×3 (05:47→21:40)
[2021-08-25 06:26] LABS: Eosinophils # (auto) 0.1 10 ^3/uL (0-0.8); Mean Corpuscular Hgb Conc. 32.8 g/dL (32.0-36.0); Monocytes # (auto) 0.6 10 ^3/uL (0-1.3)
[2021-08-25 06:30] LABS: Basophils # (auto) 0.2 10 ^3/uL (0-0.2); Basophils % (auto) 3.2 % (0.0-2.0); Eosinophils % (auto) 1.4 % (0.0-7.0); Hematocrit 34.8 % (36.0-46.0); Hemoglobin 11.4 g/dL (12.2-16.2); Lymphocytes # (auto) 1.6 10 ^3/uL (0.4-5.4); Lymphocytes % (auto) 25.3 % (10.0-50.0); Mean Corpuscular Hemoglobin 25.1 pg (28.0-32.0); Mean Corpuscular Volume 76.5 fL (80.0-100.0); Monocytes % (auto) 9.8 % (0.0-12.0); Neutrophils # (auto) 3.9 10 ^3/uL (1.6-8.6); Neutrophils % (auto) 60.3 % (37.0-80.0); Nucleated Red Blood Cells % 0.2 %; Red Blood Cells 4.55 10^6/uL (4.0-5.20); Red Cell Distribution Width 17.1 % (11.8-14.3); White Blood Cell 6.5 10^3/uL (4.4-10.8)
[2021-08-25 06:48] LABS: Calcium 7.9 mg/dL (8.5-10.1); Potassium 3.6 mmol/L (3.5-5.1)
[2021-08-25 06:51] LABS: BUN/Creatinine Ratio 15.9
[2021-08-25 07:06] LABS: INR 1.06 (0.9-1.15); Partial Thromboplastin Time 25.7 sec (23.6-33.0)
[2021-08-25] MEDS: cefTRIAXone 1GM/50ML D5W 50 ML IV SCH (09:20)
[2021-08-25] MEDS: ASPirin 81 mg TAB PO SCH (09:20)
[2021-08-25] MEDS: SACUBITRIL-VALSARTAN 24mg/26mg TAB PO SCH ×2 (09:20→21:40)
[2021-08-25] MEDS: METOPROLOL TARTRATE 25 MG TAB PO SCH ×2 (09:21→21:41)
[2021-08-25] MEDS ORDERED: LIDOCAINE 2%HCL (LOCAL ANESTH.) INJ 10ml MDV ONE (11:13)
[2021-08-25] MEDS ORDERED: IODIXANOL 320MG/ML 100ML BTL IV ONE (11:13)
[2021-08-25] MEDS ORDERED: ANGIOMAX 250 MG VIAL IV ONE (11:16)
[2021-08-25] MEDS ORDERED: VERAPAMIL 2.5MG/ML INJ 2ML VIAL IV ONE (11:16)
[2021-08-25] MEDS ORDERED: HEPARIN SODIUM (PORCINE) 5000 UNITS/ML 1ML VIAL ONE (11:16)
[2021-08-25] MEDS ORDERED: fentaNYL CITRATE 100 MCG/2 ML VL ONE ×2 (11:16→11:50)
[2021-08-25] MEDS ORDERED: SODIUM CHL 0.9% 0 ML ONE (11:17)
[2021-08-25] MEDS ORDERED: MIDAZOLAM HCL 2MG/2ML 2ml VIAL (1mg/ml) ONE ×2 (11:17→11:50)
[2021-08-25] MEDS: ACYCLOVIR 400 MG TAB PO SCH ×2 (14:10→21:41)
[2021-08-25] MEDS: SODIUM CHLOR 0.9% PF (SALINE LOCK) 10ML VIAL/SYR IV SCH ×2 (14:10→21:39)
[2021-08-26 05:00] VITALS: BP 150/105
[2021-08-26] MEDS: SODIUM CHLOR 0.9% PF (SALINE LOCK) 10ML VIAL/SYR IV SCH ×2 (05:42→14:40)
[2021-08-26] MEDS: hydrALAZINE HCL 25 MG TAB PO SCH ×2 (05:48→14:40)
[2021-08-26] MEDS: ACYCLOVIR 400 MG TAB PO SCH ×2 (05:48→14:39)
[2021-08-26 08:00] VITALS: BP 155/114
[2021-08-26] MEDS: cefTRIAXone 1GM/50ML D5W 50 ML IV SCH (09:26)
[2021-08-26] MEDS: ASPirin 81 mg TAB PO SCH (09:28)
[2021-08-26] MEDS: METOPROLOL TARTRATE 25 MG TAB PO SCH (09:29)
[2021-08-26] MEDS: SACUBITRIL-VALSARTAN 24mg/26mg TAB PO SCH (09:29)
[2021-08-26] MEDS ORDERED: DAPAGLIFLOZIN 5 MG TAB PO SCH (10:00)
[2021-08-26 10:03] VITALS: BP 155/114
[2021-08-26] MEDS ORDERED: ACYC-163 PO ×2 (10:26)
[2021-08-26] MEDS ORDERED: DAPA1TAB4 PO ×2 (10:26)
[2021-08-26 12:00] VITALS: BP 145/104
[2021-08-26 12:26] VITALS: BP 145/104
== END 2021-08-26 15:43 | disposition home or self-care (01) | DRG 286 ==
LOC: EDBD 17:29 → ER 17:29 → TELE 23:13 → TELE-EAST 23:54
PROVIDERS: ADMIT Nurse Practitioner; ATTEND Internal Medicine
PROC: 4A023N7 Measurement of Cardiac Sampling and Pressure, Left Heart, Percutaneous Approach (ICD-10-PCS; principal; 2021-08-25)
PROC: B211YZZ Fluoroscopy of Multiple Coronary Arteries using Other Contrast (ICD-10-PCS; 2021-08-25)
PROC: B215YZZ Fluoroscopy of Left Heart using Other Contrast (ICD-10-PCS; 2021-08-25)
DX: I42.0 Dilated cardiomyopathy (principal); I50.21 Acute systolic (congestive) heart failure; N30.00 Acute cystitis without hematuria; I11.0 Hypertensive heart disease with heart failure; E87.6 Hypokalemia; I95.9 Hypotension, unspecified; F41.9 Anxiety disorder, unspecified; Z20.822 Contact with and (suspected) exposure to COVID-19; R55 Syncope and collapse; A60.09 Herpesviral infection of other urogenital tract; I08.3 Combined rheumatic disorders of mitral, aortic and tricuspid valves; Z82.49 Family history of ischemic heart disease and other diseases of the circulatory system; Z83.3 Family history of diabetes mellitus; Z86.73 Personal history of transient ischemic attack (TIA), and cerebral infarction without residual deficits; Z91.19 Patient's noncompliance with other medical treatment and regimen
CPT/HCPCS: 36415; 80048; 80053; 81001; 81025; 83735; 84100; 84484; 85025; 85610; 85730; 87081; 93005; 93458; 96365; 99152; 99153; G0378; J0696; J2001; J2250; Q0162; Q9967

== ENCOUNTER 2021-08-31 13:23 | Emergency (ER) | payer MEDICARE, MEDICAID ==
[~2021-08-31] VITALS: Ht 175.3 cm; Wt 90.7 kg
[~2021-08-31 13:23] MED LIST changes: +ACYC-163 PO; +DAPA1TAB4 PO
[2021-08-31 13:43] VITALS: BP 164/115
== END 2021-08-31 18:00 | disposition left against medical advice (07) ==
LOC: ER 13:23 → EDBD 13:23 → EDSEX 13:23 → ER 18:00
DX: I10 Essential (primary) hypertension (principal); Z53.21 Procedure and treatment not carried out due to patient leaving prior to being seen by health care provider

== ENCOUNTER 2021-09-07 18:13 | Emergency (ER) | payer MEDICARE, MEDICAID ==
[~2021-09-07] VITALS: Ht 167.6 cm; Wt 81.6 kg
[2021-09-07] MEDS ORDERED: MORPHINE SULFATE 4 MG/ML SYR/VIAL IV ONE (19:15)
[2021-09-07 19:43] LABS: Basophils # (auto) 0 10 ^3/uL (0-0.2); Neutrophils # (auto) 2.9 10 ^3/uL (1.6-8.6); Neutrophils % (auto) 58.5 % (37.0-80.0); White Blood Cell 4.9 10^3/uL (4.4-10.8)
[2021-09-07 19:51] LABS: Basophils % (auto) 0.4 % (0.0-2.0); Eosinophils # (auto) 0.1 10 ^3/uL (0-0.8); Hematocrit 32.7 % (36.0-46.0); Hemoglobin 10.5 g/dL (12.2-16.2); Lymphocytes % (auto) 21.1 % (10.0-50.0); Mean Corpuscular Hemoglobin 24.5 pg (28.0-32.0); Mean Corpuscular Volume 76.6 fL (80.0-100.0); Monocytes # (auto) 0.8 10 ^3/uL (0-1.3); Nucleated Red Blood Cells % 0.1 %; Red Blood Cells 4.27 10^6/uL (4.0-5.20); Red Cell Distribution Width 17.6 % (11.8-14.3)
[2021-09-07 20:12] LABS: Albumin 3.5 g/dL (3.4-5.0); Calcium 8.6 mg/dL (8.5-10.1); Potassium 3.9 mmol/L (3.5-5.1)
[2021-09-07 20:15] LABS: Bilirubin, Total 0.4 mg/dL (0.2-1.0); Total Protein 7.7 g/dL (6.4-8.2)
[2021-09-07] MEDS ORDERED: MORPHINE SULFATE INJ 2 MG/ml SYRG IM ONE (22:15)
[2021-09-07 22:51] VITALS: BP 158/82
== END 2021-09-07 23:03 | disposition home or self-care (01) ==
LOC: EDBD 18:13 → ER 18:13
DX: R10.32 Left lower quadrant pain (principal); I10 Essential (primary) hypertension; Z86.73 Personal history of transient ischemic attack (TIA), and cerebral infarction without residual deficits
CPT/HCPCS: 36415; 74176; 80053; 83690; 84702; 85025; 96372; 99284; J2270

== ENCOUNTER 2021-09-08 21:14 | Emergency (ER) | payer MEDICARE, MEDICAID ==
[~2021-09-08] VITALS: Ht 175.3 cm; Wt 81.6 kg
[2021-09-08 21:30] VITALS: BP 179/135
[2021-09-08] MEDS ORDERED: ONDANSETRON ODT 4 MG TAB PO ONE (21:45)
[2021-09-08] MEDS ORDERED: diphenhdrAMINE HCL 25 MG CAP PO ONE (21:45)
[2021-09-08] MEDS ORDERED: ACETAMINOPHEN 325 MG TAB PO ONE (21:45)
[2021-09-08 22:12] LABS: Basophils # (auto) 0.1 10 ^3/uL (0-0.2); Eosinophils # (auto) 0.2 10 ^3/uL (0-0.8); Monocytes # (auto) 0.7 10 ^3/uL (0-1.3); Nucleated Red Blood Cells % 0.1 %
[2021-09-08 22:14] LABS: Basophils % (auto) 1.5 % (0.0-2.0); Eosinophils % (auto) 3.7 % (0.0-7.0); Hemoglobin 10.1 g/dL (12.2-16.2); Mean Corpuscular Hemoglobin 25.1 pg (28.0-32.0); Mean Corpuscular Hgb Conc. 32.7 g/dL (32.0-36.0); Mean Corpuscular Volume 76.7 fL (80.0-100.0); Monocytes % (auto) 14.5 % (0.0-12.0); Neutrophils # (auto) 2.8 10 ^3/uL (1.6-8.6); Neutrophils % (auto) 59.3 % (37.0-80.0); Red Blood Cells 4.04 10^6/uL (4.0-5.20); Red Cell Distribution Width 17.8 % (11.8-14.3); White Blood Cell 4.7 10^3/uL (4.4-10.8)
[2021-09-08 22:16] LABS: Albumin 3.5 g/dL (3.4-5.0); BUN/Creatinine Ratio 10.7; Calcium 8.6 mg/dL (8.5-10.1); Potassium 3.7 mmol/L (3.5-5.1)
[2021-09-08 22:19] LABS: Bilirubin, Total 0.3 mg/dL (0.2-1.0); Total Protein 7.5 g/dL (6.4-8.2)
== END 2021-09-08 23:38 | disposition left against medical advice (07) ==
LOC: EDUNIT# 21:14 → EDBD 21:14 → ER 21:14
DX: R51.9 Headache, unspecified (principal); I10 Essential (primary) hypertension; Z53.21 Procedure and treatment not carried out due to patient leaving prior to being seen by health care provider
CPT/HCPCS: 36415; 80053; 84702; 85025; 93005

== ENCOUNTER 2021-09-28 00:12 | Emergency (ER) | payer MEDICARE, MEDICAID ==
[~2021-09-28] VITALS: Ht 175.3 cm; Wt 97.5 kg
[2021-09-28 02:23] LABS: Urine Bacteria FEW /hpf (None Seen); Urine Blood Negative /uL (Negative); Urine Specific Gravity 1.016 (1.001-1.035); Urine WBC 7 /hpf (0 - 5)
[2021-09-28 03:30] VITALS: BP 161/110
== END 2021-09-28 03:40 | disposition home or self-care (01) ==
LOC: ER 00:12 → EDBD 00:12 → ER 03:40
DX: I11.0 Hypertensive heart disease with heart failure (principal); I50.9 Heart failure, unspecified; Z86.73 Personal history of transient ischemic attack (TIA), and cerebral infarction without residual deficits; Z79.82 Long term (current) use of aspirin; Z79.2 Long term (current) use of antibiotics; Z79.899 Other long term (current) drug therapy
CPT/HCPCS: 81001

== ENCOUNTER 2021-11-20 10:45 | Emergency (ER) | payer MEDICARE, MEDICAID ==
[~2021-11-20] VITALS: Ht 170.2 cm; Wt 180.0 kg
[2021-11-20 11:35] LABS: Basophils # (auto) 0 10 ^3/uL (0-0.2); Basophils % (auto) 0.5 % (0.0-2.0); Eosinophils # (auto) 0.1 10 ^3/uL (0-0.8); Eosinophils % (auto) 1.3 % (0.0-7.0); Hematocrit 34.4 % (36.0-46.0); Hemoglobin 10.6 g/dL (12.2-16.2); Lymphocytes # (auto) 0.8 10 ^3/uL (0.4-5.4); Lymphocytes % (auto) 12.2 % (10.0-50.0); Mean Corpuscular Hemoglobin 23.6 pg (28.0-32.0); Mean Corpuscular Volume 76.2 fL (80.0-100.0); Monocytes # (auto) 0.6 10 ^3/uL (0-1.3); Monocytes % (auto) 8.2 % (0.0-12.0); Neutrophils # (auto) 5.2 10 ^3/uL (1.6-8.6); Neutrophils % (auto) 77.8 % (37.0-80.0); Nucleated Red Blood Cells % 0.1 %; Red Blood Cells 4.51 10^6/uL (4.0-5.20); Red Cell Distribution Width 15.2 % (11.8-14.3); White Blood Cell 6.7 10^3/uL (4.4-10.8)
[2021-11-20 11:51] LABS: Albumin 3.3 g/dL (3.4-5.0); Calcium 8.4 mg/dL (8.5-10.1); Potassium 3.6 mmol/L (3.5-5.1)
[2021-11-20 11:54] LABS: BUN/Creatinine Ratio 14.8; Bilirubin, Total 0.8 mg/dL (0.2-1.0); Total Protein 7.2 g/dL (6.4-8.2)
[2021-11-20 12:08] LABS: Urine Bacteria FEW /hpf (None Seen); Urine Blood Negative /uL (Negative); Urine Specific Gravity 1.015 (1.001-1.035); Urine WBC 1 /hpf (0 - 5)
[2021-11-20] MEDS ORDERED: SODIUM CHLORIDE 0.9% 1,000 ML IV ONE (13:00)
[2021-11-20] MEDS ORDERED: MORPHINE SULFATE INJ 2 MG/ml SYRG IV ONE (13:00)
[2021-11-20] MEDS ORDERED: METOCLOPRAMIDE HCL 5MG/ml INJ 2ml VIAL IV ONE (13:00)
[2021-11-20] MEDS ORDERED: SODIUM CHLORIDE 0.9% 500 ML IVB ONE (13:00)
[2021-11-20 13:08] LABS: Magnesium 1.9 mg/dL (1.6-2.6)
[2021-11-20] MEDS ORDERED: ACETAMINOPHEN 500 MG TAB PO ONE (17:00)
[2021-11-20 17:20] VITALS: BP 139/97
[2021-11-20] MEDS ORDERED: METO-281 PO (17:55)
[2021-11-20] MEDS ORDERED: TRAM50TA2 PO (17:55)
== END 2021-11-21 18:03 | disposition home or self-care (01) ==
LOC: EDBD 10:45 → ER 11:04
DX: K42.9 Umbilical hernia without obstruction or gangrene (principal); D64.9 Anemia, unspecified; I10 Essential (primary) hypertension
CPT/HCPCS: 36415; 71046; 74176; 80053; 81001; 83690; 83735; 84702; 85025; 96361; 96374; 96375; 99285; J2270; J2765; J7030; J7040

== ENCOUNTER 2021-11-24 13:37 | Emergency (ER) | payer MEDICARE, MEDICAID ==
[~2021-11-24] VITALS: Ht 172.7 cm; Wt 81.8 kg
[~2021-11-24 13:37] MED LIST changes: +METO-281 PO; +TRAM50TA2 PO
[2021-11-24 13:50] VITALS: BP 86/44
[2021-11-24 15:15] LABS: Basophils # (auto) 0 10 ^3/uL (0-0.2); Eosinophils # (auto) 0.1 10 ^3/uL (0-0.8); Mean Corpuscular Hgb Conc. 31.1 g/dL (32.0-36.0); Neutrophils # (auto) 6.5 10 ^3/uL (1.6-8.6)
[2021-11-24 15:18] LABS: Basophils % (auto) 0.2 % (0.0-2.0); Eosinophils % (auto) 1.4 % (0.0-7.0); Hematocrit 35.6 % (36.0-46.0); Hemoglobin 11.1 g/dL (12.2-16.2); Lymphocytes # (auto) 0.7 10 ^3/uL (0.4-5.4); Lymphocytes % (auto) 8.2 % (10.0-50.0); Mean Corpuscular Volume 76.4 fL (80.0-100.0); Monocytes # (auto) 1.1 10 ^3/uL (0-1.3); Monocytes % (auto) 13.5 % (0.0-12.0); Neutrophils % (auto) 76.7 % (37.0-80.0); Red Blood Cells 4.67 10^6/uL (4.0-5.20); Red Cell Distribution Width 15.7 % (11.8-14.3); White Blood Cell 8.5 10^3/uL (4.4-10.8)
[2021-11-24 15:23] LABS: Albumin 3.4 g/dL (3.4-5.0); BUN/Creatinine Ratio 8.4; Calcium 8.4 mg/dL (8.5-10.1); Mean Corpuscular Hemoglobin 23.8 pg (28.0-32.0); Potassium 3.9 mmol/L (3.5-5.1)
[2021-11-24 15:26] LABS: Bilirubin, Total 0.6 mg/dL (0.2-1.0); Total Protein 7.1 g/dL (6.4-8.2)
== END 2021-11-24 22:22 | disposition left against medical advice (07) ==
LOC: EDUNIT# 13:37 → ER 13:37 → EDBD 13:37 → ER 22:22
DX: R55 Syncope and collapse (principal); R51.9 Headache, unspecified; R10.2 Pelvic and perineal pain; Z53.21 Procedure and treatment not carried out due to patient leaving prior to being seen by health care provider
CPT/HCPCS: 36415; 80053; 84702; 85025; 93005

== ENCOUNTER 2022-05-12 15:03 | Emergency (ER) | payer MEDICARE, MEDICAID ==
[~2022-05-12] VITALS: Ht 165.1 cm; Wt 81.8 kg
[~2022-05-12 15:03] MED LIST changes: +AML5T PO; +ARIP5TAB15 PO
[2022-05-12] MEDS ORDERED: hydrALAZINE HCL 20 MG/ML VL IV ONE (15:30)
[2022-05-12] MEDS ORDERED: DICYCLOMINE HCL (10MG/ML) 2 ML AMPULE IM ONE (15:30)
[2022-05-12] MEDS ORDERED: ONDANSETRON HCL 4 MG/2 ML VIAL IV ONE (15:30)
[2022-05-12 16:50] LABS: Basophils # (auto) 0 10 ^3/uL (0-0.2); Basophils % (auto) 0.4 % (0.0-2.0); Eosinophils # (auto) 0.1 10 ^3/uL (0-0.8); Eosinophils % (auto) 0.9 % (0.0-7.0); Hematocrit 37.2 % (36.0-46.0); Hemoglobin 11.9 g/dL (12.2-16.2); Lymphocytes # (auto) 1.6 10 ^3/uL (0.4-5.4); Lymphocytes % (auto) 21.4 % (10.0-50.0); Mean Corpuscular Hemoglobin 24.9 pg (28.0-32.0); Mean Corpuscular Hgb Conc. 31.9 g/dL (32.0-36.0); Monocytes # (auto) 0.8 10 ^3/uL (0-1.3); Monocytes % (auto) 11.4 % (0.0-12.0); Neutrophils # (auto) 4.9 10 ^3/uL (1.6-8.6); Neutrophils % (auto) 65.9 % (37.0-80.0); Nucleated Red Blood Cells % 0.2 %; Red Blood Cells 4.77 10^6/uL (4.0-5.20); White Blood Cell 7.4 10^3/uL (4.4-10.8)
[2022-05-12 16:54] LABS: Urine Bacteria FEW /hpf (None Seen); Urine Blood Negative /uL (Negative); Urine Mucus FEW (None Seen); Urine Specific Gravity 1.028 (1.001-1.035); Urine WBC 26 /hpf (0 - 5)
[2022-05-12 17:06] LABS: INR 1.03 (0.9-1.15); Partial Thromboplastin Time 27.3 sec (24.6-33.4)
[2022-05-12 17:08] LABS: Albumin 3.8 g/dL (3.4-5.0); Calcium 8.7 mg/dL (8.5-10.1); Magnesium 2.4 mg/dL (1.6-2.6); Potassium 3.7 mmol/L (3.5-5.1)
[2022-05-12 17:10] LABS: Alcohol, Urine < 3.0 mg/dL (0-10); Amphetamine Screen, Urine NEGATIVE (NEGATIVE); Barbiturate Scree,Urine NEGATIVE (NEGATIVE); Benzodiazephine Screen, Urine NEGATIVE (NEGATIVE); Cannabinoid Screen, Urine NEGATIVE (NEGATIVE); Cocaine Screen, Urine NEGATIVE (NEGATIVE); Opiate Scree,Urine NEGATIVE (NEGATIVE); Phencyclidine Screen, Urine NEGATIVE (NEGATIVE)
[2022-05-12 17:13] LABS: BUN/Creatinine Ratio 11.3; Bilirubin, Total 0.8 mg/dL (0.2-1.0); Total Protein 7.7 g/dL (6.4-8.2)
[2022-05-12] MEDS ORDERED: DICYCLOMINE HCL 10 MG CAP PO ONE (18:30)
[2022-05-12] MEDS ORDERED: ONDANSETRON ODT 4 MG TAB PO ONE (18:30)
[2022-05-12] MEDS ORDERED: cloNIDine HCL 0.1 MG TAB PO ONE (18:30)
[2022-05-12] MEDS ORDERED: IOHEXOL 350 MG/ML 100ML IJ ONE (19:04)
[2022-05-12] MEDS ORDERED: NITROFURANTOIN 100 mg CAP PO ONE (20:30)
[2022-05-12] MEDS ORDERED: CLON0.2T PO (22:08)
[2022-05-12] MEDS ORDERED: NITR-87 PO (22:18)
[2022-05-12 22:26] VITALS: BP 154/99
== END 2022-05-12 22:31 | disposition home or self-care (01) ==
LOC: EDBD 15:03 → ER 15:03
DX: I16.1 Hypertensive emergency (principal); I10 Essential (primary) hypertension; R51.9 Headache, unspecified; Z79.899 Other long term (current) drug therapy
CPT/HCPCS: 36415; 71045; 71275; 80053; 80307; 81001; 81025; 83735; 83880; 84484; 85025; 85379; 85610; 85730; 99285; Q9967

== ENCOUNTER 2022-06-18 22:36 | Emergency (ER) | payer MEDICARE, MEDICAID ==
[~2022-06-18] VITALS: Ht 175.3 cm; Wt 85.0 kg
[~2022-06-18 22:36] MED LIST changes: +CLON0.2T PO; +NITR-87 PO
[2022-06-18 23:44] LABS: Basophils # (auto) 0 10 ^3/uL (0-0.2); Eosinophils # (auto) 0.1 10 ^3/uL (0-0.8); Monocytes # (auto) 0.9 10 ^3/uL (0-1.3)
[2022-06-18 23:46] LABS: Basophils % (auto) 0.3 % (0.0-2.0); Eosinophils % (auto) 0.8 % (0.0-7.0); Hemoglobin 11.5 g/dL (12.2-16.2); Lymphocytes # (auto) 1.4 10 ^3/uL (0.4-5.4); Lymphocytes % (auto) 16.4 % (10.0-50.0); Mean Corpuscular Hemoglobin 25.1 pg (28.0-32.0); Mean Corpuscular Volume 78.7 fL (80.0-100.0); Monocytes % (auto) 10.9 % (0.0-12.0); Neutrophils # (auto) 6.2 10 ^3/uL (1.6-8.6); Neutrophils % (auto) 71.6 % (37.0-80.0); Nucleated Red Blood Cells % 0.1 %; Red Blood Cells 4.57 10^6/uL (4.0-5.20); Red Cell Distribution Width 16.3 % (11.8-14.3); White Blood Cell 8.6 10^3/uL (4.4-10.8)
[2022-06-18 23:58] LABS: INR 1.02 (0.9-1.15); Partial Thromboplastin Time 26.5 sec (24.6-33.4)
[2022-06-19] MEDS ORDERED: hydrALAZINE HCL 20 MG/ML VL IV ONE
[2022-06-19 00:01] LABS: Albumin 3.3 g/dL (3.4-5.0); BUN/Creatinine Ratio 16.1; Calcium 8.5 mg/dL (8.5-10.1); Magnesium 2.4 mg/dL (1.6-2.6); Potassium 3.1 mmol/L (3.5-5.1)
[2022-06-19 00:04] LABS: Bilirubin, Total 0.4 mg/dL (0.2-1.0); Total Protein 7.5 g/dL (6.4-8.2)
[2022-06-19] MEDS ORDERED: ONDANSETRON HCL 4 MG/2 ML VIAL IV ONE ×2 (01:00→03:45)
[2022-06-19] MEDS ORDERED: MORPHINE SULFATE 4 MG/ML SYR/VIAL IV ONE ×2 (01:00→03:45)
[2022-06-19] MEDS ORDERED: KETOROLAC TROMETH 30 MG/ML 1ML VIAL IV ONE (06:00)
[2022-06-19] MEDS ORDERED: diphenhdrAMINE HCL 50 MG/1 ML VL IV ONE (06:00)
[2022-06-19] MEDS ORDERED: METOCLOPRAMIDE HCL 5MG/ml INJ 2ml VIAL IV ONE (06:00)
[2022-06-19] MEDS ORDERED: POTASSIUM EFFERVESENT TAB 25 MEQ PO ONE (08:30)
[2022-06-19] MEDS ORDERED: LORazepam 2MG/ML-1ML VIAL IV ONE (08:30)
[2022-06-19 09:05] VITALS: BP 141/98
== END 2022-06-19 09:14 | disposition home or self-care (01) ==
LOC: EDBD 22:36 → ER 22:36
DX: I16.0 Hypertensive urgency (principal); I11.0 Hypertensive heart disease with heart failure; I50.9 Heart failure, unspecified; R51.9 Headache, unspecified; E87.6 Hypokalemia; F41.9 Anxiety disorder, unspecified; Z86.73 Personal history of transient ischemic attack (TIA), and cerebral infarction without residual deficits
CPT/HCPCS: 36415; 70450; 71045; 74176; 80053; 83735; 83880; 84484; 85025; 85610; 85730; 93005; 96374; 96375; 96376; 99285; J0360; J1200; J1885; J2060; J2270; J2405; J2765

== ENCOUNTER 2022-07-09 11:55 | Emergency (ER) | payer MEDICARE, MEDICAID ==
[~2022-07-09] VITALS: Ht 177.8 cm; Wt 90.9 kg
[2022-07-09] MEDS ORDERED: SODIUM CHLORIDE 0.9% 1,000 ML IV ONE ×2 (12:15)
[2022-07-09] MEDS ORDERED: cloNIDine HCL 0.1 MG TAB PO ONE (12:45)
[2022-07-09 12:53] LABS: Eosinophils # (auto) 0 10 ^3/uL (0-0.8); Eosinophils % (auto) 0.4 % (0.0-7.0)
[2022-07-09 12:56] LABS: Basophils # (auto) 0 10 ^3/uL (0-0.2); Basophils % (auto) 0.4 % (0.0-2.0); Hematocrit 35.8 % (36.0-46.0); Hemoglobin 11.6 g/dL (12.2-16.2); Lymphocytes # (auto) 0.7 10 ^3/uL (0.4-5.4); Lymphocytes % (auto) 7.6 % (10.0-50.0); Mean Corpuscular Hemoglobin 25.1 pg (28.0-32.0); Mean Corpuscular Hgb Conc. 32.4 g/dL (32.0-36.0); Mean Corpuscular Volume 77.5 fL (80.0-100.0); Monocytes # (auto) 0.6 10 ^3/uL (0-1.3); Monocytes % (auto) 6.2 % (0.0-12.0); Neutrophils # (auto) 8.3 10 ^3/uL (1.6-8.6); Neutrophils % (auto) 85.4 % (37.0-80.0); Nucleated Red Blood Cells % 0.1 %; Red Blood Cells 4.61 10^6/uL (4.0-5.20); Red Cell Distribution Width 16.1 % (11.8-14.3); White Blood Cell 9.7 10^3/uL (4.4-10.8)
[2022-07-09 13:12] LABS: Albumin 3.4 g/dL (3.4-5.0); Calcium 8.5 mg/dL (8.5-10.1); Potassium 3.4 mmol/L (3.5-5.1)
[2022-07-09 13:17] LABS: Total Protein 7.2 g/dL (6.4-8.2)
[2022-07-09] MEDS ORDERED: POTASSIUM EFFERVESENT TAB 25 MEQ PO ONE (13:45)
[2022-07-09 14:39] LABS: Urine Bacteria FEW /hpf (None Seen); Urine Blood Negative /uL (Negative); Urine Mucus FEW (None Seen); Urine Specific Gravity 1.016 (1.001-1.035); Urine WBC 18 /hpf (0 - 5)
[2022-07-09] MEDS ORDERED: NITR-87 PO (15:19)
[2022-07-09] MEDS ORDERED: amLODIPine BESYLATE 5 MG TAB PO ONE (15:45)
[2022-07-09 16:18] VITALS: BP 137/103
[2022-07-09] MEDS ORDERED: cefTRIAXone 1GM/50ML D5W 50 ML IV ONE (17:00)
== END 2022-07-09 17:18 | disposition left against medical advice (07) ==
LOC: ER 11:55 → EDBD 11:55 → ER 17:18
DX: I16.0 Hypertensive urgency (principal); N39.0 Urinary tract infection, site not specified; R11.2 Nausea with vomiting, unspecified; R07.89 Other chest pain; I11.0 Hypertensive heart disease with heart failure; I50.9 Heart failure, unspecified; Z86.73 Personal history of transient ischemic attack (TIA), and cerebral infarction without residual deficits; Z79.82 Long term (current) use of aspirin; Z79.899 Other long term (current) drug therapy; Z79.2 Long term (current) use of antibiotics; Z20.822 Contact with and (suspected) exposure to COVID-19
CPT/HCPCS: 36415; 71045; 80053; 81001; 84484; 85025; 87426; 93005

== ENCOUNTER 2023-09-01 08:18 | Inpatient (IN) | payer MEDICARE, MEDICAID ==
[~2023-09-01] VITALS: Ht 175.3 cm; Wt 85.4 kg
[~2023-09-01 08:18] MED LIST changes: -ACYC-163 PO; +ACYC1TAB2 PO; +ARIP5TAB11 PO; -ARIP5TAB15 PO; +ASPI-736 PO; -ASPI1CHW15 PO; -ENAL10TA13 PO; +ENAL1TAB47 PO
[2023-09-01 09:00] LABS: Eosinophils # (auto) 0.1 10 ^3/uL (0-0.8); Hemoglobin 9.8 g/dL (12.2-16.2); Lymphocytes # (auto) 0.9 10 ^3/uL (0.4-5.4); Nucleated Red Blood Cells % 0.1 %
[2023-09-01 09:01] LABS: Basophils # (auto) 0 10 ^3/uL (0-0.2); Basophils % (auto) 0.4 % (0.0-2.0); Eosinophils % (auto) 1.2 % (0.0-7.0); Hematocrit 32.2 % (36.0-46.0); Lymphocytes % (auto) 10.4 % (10.0-50.0); Mean Corpuscular Hemoglobin 22.7 pg (28.0-32.0); Mean Corpuscular Hgb Conc. 30.4 g/dL (32.0-36.0); Mean Corpuscular Volume 74.6 fL (80.0-100.0); Monocytes # (auto) 0.6 10 ^3/uL (0-1.3); Monocytes % (auto) 6.7 % (0.0-12.0); Neutrophils % (auto) 81.3 % (37.0-80.0); Red Blood Cells 4.32 10^6/uL (4.0-5.20); Red Cell Distribution Width 18.4 % (11.8-14.3); White Blood Cell 8.6 10^3/uL (4.4-10.8)
[2023-09-01 09:10] LABS: Chloride 107 mmol/L (98-107); Potassium 3.7 mmol/L (3.5-5.1); Sodium 139 mmol/L (136-145)
[2023-09-01 09:11] LABS: Anion Gap 4 (5-15); Calcium 9.1 mg/dL (8.5-10.1); Carbon Dioxide 28 mmol/L (20-30)
[2023-09-01 09:16] LABS: BUN/Creatinine Ratio 9.7 (10.0-20.0); Blood Urea Nitrogen 10 mg/dL (9-23); Glucose 107 mg/dL (74-106)
[2023-09-01] MEDS: ONDANSETRON HCL 4 MG/2 ML VIAL IV ONE (09:23)
[2023-09-01] MEDS: SODIUM CHLORIDE 0.9% 1,000 ML IVB ONE (09:26)
[2023-09-01] MEDS: MORPHINE SULFATE 4 MG/ML SYR/VIAL IV ONE (09:26)
[2023-09-01 10:30] LABS: Urine Bacteria None Seen /hpf (None Seen)
[2023-09-01 10:50] LABS: Urine Blood Negative /uL (Negative); Urine Clarity Turbid (Clear); Urine Color Light-Yellow (Yellow); Urine Protein, UAD 2+ (Negative); Urine Specific Gravity 1.021 (1.001-1.035); Urine Urobilinogen Normal (Negative); Urine WBC 8 /hpf (0 - 5)
[2023-09-01] MEDS ORDERED: cloNIDine HCL 0.1 MG TAB PO PRN (11:15)
[2023-09-01] MEDS ORDERED: MORPHINE SULFATE INJ 2 MG/ml SYRG IV PRN (11:15)
[2023-09-01] MEDS ORDERED: HYDROcodone-ACET 5/325MG TAB PO PRN (11:15)
[2023-09-01] MEDS ORDERED: MORPHINE SULFATE 4 MG/ML SYR/VIAL IV PRN (11:15)
[2023-09-01] MEDS ORDERED: ACETAMINOPHEN 325 MG TAB PO PRN ×2 (11:15)
[2023-09-01] MEDS ORDERED: NITROGLYCERIN 0.4 MG SL TAB SL PRN (11:15)
[2023-09-01 12:00] VITALS: PULSE 67; RESP 12; O2SAT 97
[2023-09-01] MEDS: NIFEdipine ER 30 MG TAB PO ONE (12:28)
[2023-09-01] MEDS: hydrALAZINE HCL 20 MG/ML VL IV ONE (12:30)
[2023-09-01] MEDS: hydrALAZINE HCL 25 MG TAB PO SCH (14:16)
[2023-09-01] MEDS: SACUBITRIL-VALSARTAN 24mg/26mg TAB PO SCH (21:43)
[2023-09-01] MEDS: MORPHINE SULFATE INJ 2 MG/ml SYRG IV PRN (21:45)
[2023-09-01] MEDS: METOPROLOL TARTRATE 50 MG TAB PO SCH (21:46)
[2023-09-02] VITALS (10 sets, daily range): BP systolic 109–135; BP diastolic 61–86; PULSE 63–90; RESP 16–19; TEMP 96.9–99.7; O2SAT 96–100
[2023-09-02 06:40] LABS: Basophils # (auto) 0 10 ^3/uL (0-0.2); Basophils % (auto) 0.1 % (0.0-2.0); Eosinophils # (auto) 0 10 ^3/uL (0-0.8); Eosinophils % (auto) 0.1 % (0.0-7.0); Lymphocytes # (auto) 0.8 10 ^3/uL (0.4-5.4); Monocytes % (auto) 12.1 % (0.0-12.0); Neutrophils # (auto) 11.1 10 ^3/uL (1.6-8.6)
[2023-09-02 06:43] LABS: Hemoglobin 11.3 g/dL (12.2-16.2); Lymphocytes % (auto) 6.2 % (10.0-50.0); Mean Corpuscular Hemoglobin 23.3 pg (28.0-32.0); Mean Corpuscular Hgb Conc. 30.5 g/dL (32.0-36.0); Mean Corpuscular Volume 76.3 fL (80.0-100.0); Monocytes # (auto) 1.6 10 ^3/uL (0-1.3); Neutrophils % (auto) 81.5 % (37.0-80.0); Red Blood Cells 4.85 10^6/uL (4.0-5.20); Red Cell Distribution Width 18.4 % (11.8-14.3); White Blood Cell 13.6 10^3/uL (4.4-10.8)
[2023-09-02 07:03] LABS: Alanine Aminotransferase 16 U/L (7-40); Alkaline Phosphatase 86 U/L (46-116); Anion Gap 8 (5-15); Aspartate Aminotransferase 18 U/L (13-40); BUN/Creatinine Ratio 11.1 (10.0-20.0); Bilirubin, Total 2.2 mg/dL (0.2-1.0); Blood Urea Nitrogen 9 mg/dL (9-23); Calcium 9.2 mg/dL (8.7-10.4); Carbon Dioxide 25 mmol/L (20-30); Chloride 103 mmol/L (98-107); Glucose 63 mg/dL (74-106); Potassium 3.6 mmol/L (3.5-5.1); Sodium 136 mmol/L (136-145)
[2023-09-02 07:04] LABS: Total Protein 7.1 g/dL (5.7-8.2)
[2023-09-02] MEDS: NIFEdipine ER 30 MG TAB PO SCH (09:53)
[2023-09-02] MEDS: CARVEDILOL 3.125 MG TAB PO SCH (22:10)
[2023-09-03] VITALS (8 sets, daily range): BP systolic 110–147; BP diastolic 71–93; PULSE 70–98; RESP 18–22; TEMP 97.7–98.5; O2SAT 95–100
[2023-09-03 07:10] LABS: Basophils # (auto) 0 10 ^3/uL (0-0.2); Basophils % (auto) 0.3 % (0.0-2.0); Eosinophils # (auto) 0.1 10 ^3/uL (0-0.8); Eosinophils % (auto) 1.3 % (0.0-7.0); Hemoglobin 11.3 g/dL (12.2-16.2); Lymphocytes # (auto) 1.2 10 ^3/uL (0.4-5.4); Mean Corpuscular Hemoglobin 23.5 pg (28.0-32.0)
[2023-09-03 07:13] LABS: Hematocrit 35.9 % (36.0-46.0); Mean Corpuscular Hgb Conc. 31.4 g/dL (32.0-36.0); Mean Corpuscular Volume 74.7 fL (80.0-100.0); Monocytes # (auto) 1.8 10 ^3/uL (0-1.3); Monocytes % (auto) 18.4 % (0.0-12.0); Neutrophils # (auto) 6.6 10 ^3/uL (1.6-8.6); Red Blood Cells 4.81 10^6/uL (4.0-5.20); Red Cell Distribution Width 17.8 % (11.8-14.3); White Blood Cell 9.7 10^3/uL (4.4-10.8)
[2023-09-03 07:39] LABS: Anion Gap 6 (5-15); Carbon Dioxide 26 mmol/L (20-30); Chloride 105 mmol/L (98-107); Potassium 3.4 mmol/L (3.5-5.1); Sodium 137 mmol/L (136-145)
[2023-09-03 07:40] LABS: Calcium 8.9 mg/dL (8.5-10.1)
[2023-09-03 07:45] LABS: BUN/Creatinine Ratio 6.8 (10.0-20.0); Blood Urea Nitrogen 6 mg/dL (9-23); Glucose 97 mg/dL (74-106)
[2023-09-03 07:53] LABS: Erythrocyte Sedimentation Rate 8 mm/hr (0-20)
[2023-09-03 07:56] LABS: CRP High Sensitivity 3.45 mg/dL (<1.0)
[2023-09-03] MEDS: EMPAGLIFLOZIN 10 MG TAB PO SCH (09:02)
[2023-09-03] MEDS: FUROSEMIDE 20 MG TAB PO SCH (09:04)
[2023-09-04] VITALS (7 sets, daily range): BP systolic 113–132; BP diastolic 70–88; PULSE 67–93; RESP 16–22; TEMP 36.8; O2SAT 98–100
[2023-09-04] MEDS ORDERED: ASPI1TAB20 PO (14:08)
[2023-09-04] MEDS ORDERED: NIFE1TAB36 PO (14:08)
== END 2023-09-04 17:10 | disposition home or self-care (01) | DRG 291 ==
LOC: ER 08:18 → EDBD 08:18 → TELE 11:46 → TELE-WESTW 09-02 03:02
PROVIDERS: ADMIT Registered Nurse; ATTEND Nurse Practitioner Acute Care
DX: I11.0 Hypertensive heart disease with heart failure (principal); I50.23 Acute on chronic systolic (congestive) heart failure; I16.9 Hypertensive crisis, unspecified; I42.0 Dilated cardiomyopathy; F41.9 Anxiety disorder, unspecified; E66.9 Obesity, unspecified; Z91.148 Patient's other noncompliance with medication regimen for other reason; Z86.73 Personal history of transient ischemic attack (TIA), and cerebral infarction without residual deficits; Z79.899 Other long term (current) drug therapy; Z79.82 Long term (current) use of aspirin; Z83.3 Family history of diabetes mellitus; Z68.27 Body mass index [BMI] 27.0-27.9, adult
CPT/HCPCS: 36415; 70450; 71045; 74176; 76775; 80048; 80053; 80061; 81001; 83735; 83880; 84443; 84702; 85025; 85652; 86141; 87086; 93005; 93306; 96361; 96374; 96375; 96376; G0378; J2405

== ENCOUNTER 2024-04-26 12:34 | Emergency (ER) | payer BC, OTHER ==
[~2024-04-26] VITALS: Ht 170.2 cm; Wt 80.0 kg
[~2024-04-26 12:34] MED LIST changes: +ASPI1TAB20 PO; +NIFE1TAB36 PO
--- NOTE | 2024-04-26 12:56 | ECG ---
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
--- NOTE | 2024-04-26 12:57 | ED.PDOC ---
History of Present Illness HPI Comments 34F BIBA w/ family near bedside and w/ no prior Hx associated to the c/c of CP, MULTANI and ABD pain. family member stated that all of the symptoms started this morning associated w/ N/V as well. Pt BP en rout to the ED was 150/100. PMHx of HTN, TIA, Anxiety, CHF and CVA. Denies chills, fever, SOB or other associated symptom's, modifiers, or recent injuries or sick contact at this time. Chief Complaint: Headache Time Seen by MD: 12:50 Primary Care Provider: UNKNOWN Reviewed Notes: Nurses Notes, Manager Quantitative Notes, Medications, Allergies Allergies: Coded Allergies: NO KNOWN ALLERGIES (Unverified , 08/31/21) Home Meds Active Scripts Aspirin (Aspir-81) 81 Mg Tab, 1 TAB PO DAILY for 60 Days, #60 TAB 5 Refills Prov:THEE SANTIZO NP 09/04/23 Nifedipine (Nifedipine ER) 30 Mg Tab, 30 MG PO DAILY for 60 Days, #60 TAB Prov:THEE SANTIZO NP 09/04/23 Nitrofurantoin Monohydrate Mac (Macrobid) 100 Mg Cap, 100 MG PO BID for 7 Days, #14 CAP Prov:OMAR GIBSON MD 07/09/22 Nitrofurantoin Monohydrate Mac (Macrobid) 100 Mg Cap, 100 MG PO BID for 7 Days, #14 CAP Prov:OMAR GIBSON MD 06/12/22 Nitrofurantoin Monohydrate Mac (Macrobid) 100 Mg Cap, 100 MG PO BID for 7 Days, #14 CAP Prov:LUIS ALBERTO MANN PAC 05/12/22 Clonidine Hydrochloride (Clonidine Hcl) 0.2 Mg Tab, 1 TAB PO BID, #30 TAB 0 Refills Prov:LUIS ALBERTO MANN PAC 05/12/22 Amlodipine Besylate (NORVASC TABLET) 5 Mg Tb, 10 MG PO DAILY for 90 Days, #180 TAB Prov:THEE SANTIZO NP 02/28/22 Tramadol Hcl (Tramadol Hcl) 50 Mg Tab, 50 MG PO BID for 5 Days, #10 TAB Prov:JULIA SCHUMACHER MD 11/20/21 Metoclopramide Hcl (Reglan) 10 Mg Tab, 10 MG PO BID for 10 Days, #20 TAB Prov:JULIA SCHUMACHER MD 11/20/21 Dapagliflozin Propanediol (Farxiga) 10 Mg Tab, 10 MG PO DAILY for 30 Days, #30 TAB 3 Refills Prov:WILL ROWLAND MD 08/26/21 Acyclovir (Acyclovir) 400 Mg Tab, 400 MG PO TID for 7 Days, #21 TAB Prov:WILL ROWLAND MD 08/26/21 Levofloxacin (Levaquin) 500 Mg Tab, 500 MG PO DAILY for 7 Days, #7 TAB Prov:WILL ROWLAND MD 08/16/21 Sacubitril-Valsartan (Entresto 24-26 mg) 1 Tab Tab, 1 TAB PO BID for 30 Days, #60 TAB 3 Refills Prov:WILL ROWLAND MD 08/16/21 Metoprolol Tartrate (LOPRESSOR TABLET) 50 Mg Tb, 25 MG PO BID for 30 Days, #30 TAB 3 Refills Prov:WILL ROWLAND MD 08/16/21 Hydralazine HCl (Hydralazine HCl) 25 Mg Tab, 50 MG PO TID for 30 Days, #90 TAB 3 Refills Prov:WILL ROWLAND MD 08/16/21 Aspirin (Aspirin Low Strength) 81 Mg Chw, 81 MG PO DAILY for 30 Days, #30 TAB.CHEW 2 Refills Prov:WILL ROWLAND MD 08/16/21 Hydralazine HCl (Hydralazine HCl) 25 Mg Tab, 25 MG PO BID for 60 Days, #120 TAB Prov:EMILIANO HARDWICK MD 01/22/19 Metoprolol Tartrate (LOPRESSOR TABLET) 50 Mg Tb, 50 MG PO BID for 60 Days, #120 TAB Prov:EMILIANO HARDWICK MD 01/22/19 Enalapril Maleate (Enalapril Maleate) 10 Mg Tab, 40 MG PO DAILY for 60 Days, #240 TAB Prov:EMILIANO HARDWICK MD 01/22/19 Reported Medications Aripiprazole (Abilify) 5 Mg Tab, 5 MG PO BID, TAB 02/27/22 Clonidine Hydrochloride (Clonidine Hcl) 0.1 Mg Tab 08/14/21 Information Source: Patient, Relative, Emergency Med Personnel Mode of Arrival: EMS Severity: Moderate Timing: Hours Duration: Since onset, Hours Prehospital treatment: None Past Medical History PAST MEDICAL HISTORY: Anxiety, CHF, CVA, HTN, TIA Surgical History (Other): [employer] 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 Family History Family History: Reviewed,noncontributory to illness, Unknown Social History Smoker: Non-Smoker Alcohol: Denies ETOH Use Drugs: Denies Drug Use Lives In: Home Constitutional: denies: chills, diaphoresis, fatigue, fever, malaise, sweats, weakness, others EENTM: denies: blurred vision, double vision, ear bleeding, ear discharge, ear drainage, ear pain, ear ringing, eye pain, eye redness, hearing loss, mouth pain, mouth swelling, nasal discharge, nose bleeding, nose congestion, nose pain, photophobia, tearing, throat pain, throat swelling, voice changes, others Respiratory: denies: cough, hemoptysis, orthopnea, SOB at rest, shortness of breath, SOB with excertion, stridor, wheezing, others Cardiovascular: reports: chest pain; denies: dizzy spells, diaphoresis, Dyspnea on exertion, edema, irregular heart beat, left arm pain, lightheadedness, palpitations, PND, syncope, others Gastrointestinal: reports: abdominal pain, nausea, vomiting; denies: abdomen distended, blood streaked bowels, constipated, diarrhea, dysphagia, difficulty swallowing, hematemesis, melena, poor appetite, poor fluid intake, rectal bleeding, rectal pain, others Genitourinary: denies: abnormal vagina bleeding, burning, dyspareunia, dysuria, flank pain, frequency, hematuria, incontinence, pain, , vagina discharge, urgency, others Neurological: reports: headache; denies: dizziness, fainting, left sided numbness, left sided weakness, numbness, paresthesia, pre-existing deficit, right sided numbness, right sided weakness, seizure, speech problems, tingling, tremors, weakness, others Musculoskeletal: denies: back pain, gout, joint pain, joint swelling, muscle pain, muscle stiffness, neck pain, others Integumetry: denies: bruises, change in color, change in hair/nails, dryness, laceration, lesions, lumps, rash, wounds, others Allergic/Immunocompromised: denies: Difficulty Healing, Frequent Infections, Hives, Itching, others Hematologic/Lymphatic: denies: anemia, blood clots, easy bleeding, easy bruising, swollen glands, others Endocrine: denies: excessive hunger, excessive sweating, excessive thirst, excessive urination, flushing, intolerance to cold, intolerance to heat, unexplained weight gain, unexplained weight loss, others Psychiatric: denies: anxiety, bipolar disorder, depression, hopeless, panic d isorder, schizophrenia, sleepless, suicidal, others All Other Systems: Reviewed and Negative Physical Exam General Appearance: Moderate Distress HEENT: Normal ENT Inspection, Pharynx Normal, TMs Normal Neck: Full Range of Motion, Non-Tender, Normal, Normal Inspection Respiratory: Chest Non-Tender, Lungs Clear, No Accessory Muscle Use, No Respiratory Distress, Normal Breath Sounds Cardiovascular: No Edema, No JVD, No Murmur, No Gallop, Normal Peripheral Pulses, Regular Rate/Rhythm Breast Exam: Deferred Gastrointestinal: Diffuse, No Organomegaly, No Pulsatile Mass, Normal Bowel Sounds, Soft, Tenderness Genitalia: Deferred Pelvic: Deferred Rectal: Deferred Extremities: No calf tenderness, Normal capillary refill, No pedal edema Musculoskeletal : Apperance: Normal Neurologic: Alert, digital sales representative II-XII nml as Tested, Motor Weakness, Normal Affect, Normal Mood, No Sensory Deficits Cerebellar Function: Normal Reflexes: Normal Skin: Dry, Normal Color, Warm Lymphatic: No Adenopathy Was a procedure done? Was a procedure done?: No EKG EKG : Pulse Rate (adult): 92 Keller: Normal Cardiac Rhythm: NSR Block: None Hypertrophy: None ST: Normal Differential Dx Considerations may include: Hypertensive crisis X-Ray, Labs, Meds, VS Vital Signs Date Time Temp Pulse Resp B/P (MAP) Pulse Ox O2 Delivery O2 Flow Rate FiO2 04/26/24 18:07 98.6 90 20 132/82 (99) 100 98.6 04/26/24 15:32 84 18 193/138 04/26/24 15:32 193/138 04/26/24 15:29 98.7 84 17 193/138 (156) 100 98.7 04/26/24 15:17 85 16 193/138 04/26/24 15:16 193/138 04/26/24 14:13 90 16 209/144 04/26/24 14:00 90 18 100 Room Air* 0 21 1/24/25 13:54 98.7 90 17 209/144 (165) 100 98.7 04/26/24 13:54 90 17 100 Room Air 04/26/24 13:52 209/144 04/26/24 12:57 92 04/26/24 12:53 98.1 90 22 150/100 (117) 100 04/26/24 12:51 92 Lab Test 04/26/24 13:46 04/26/24 13:00 Range/Units Urine Color Light-yellow Yellow Urine Clarity Turbid H Clear Urine pH 7.0 5.0-9.0 Urine Specific [place] 1.017 1.001-1.035 Urine Protein 1+ H Negative Urine Ketones Trace Negative Urine Blood Negative Negative /uL Urine Nitrite Negative Negative Urine Bilirubin Negative Negative Urine Urobilinogen Normal Negative mg/dL Urine Leukocyte Esterase Negative Negative /uL Urine RBC 2 0 - 4 /hpf Urine Microscopic WBC 6 H 0-5 /HPF Urine Squamous Epithelial Cells Few <5 /hpf Urine Bacteria None seen None Seen /hpf Urine Mucus Few None Seen Urine Glucose Trace Normal mg/dL White Blood Count 7.9 4.4-10.8 10^3/uL Red Blood Count 4.37 4.0-5.20 10^6/uL Hemoglobin 10.9 L 12.2-16.2 g/dL Hematocrit 34.4 L 36.0-46.0 % Mean Corpuscular Volume 78.8 L 80.0-100.0 fL Mean Corpuscular Hemoglobin 25.1 L 28.0-32.0 pg Mean Corpuscular Hemoglobin Concent 31.8 L 32.0-36.0 g/dL Red Cell Distribution Width 16.7 H 11.8-14.3 % Platelet Count 314 140-450 10^3/uL Mean Platelet Volume 8.0 6.9-10.8 fL Neutrophils (%) (Auto) 80.9 H 37.0-80.0 % Lymphocytes (%) (Auto) 10.0 10.0-50.0 % Monocytes (%) (Auto) 7.8 0.0-12.0 % Eosinophils (%) (Auto) 1.1 0.0-7.0 % Basophils (%) (Auto) 0.2 0.0-2.0 % Neutrophils # (Auto) 6.4 1.6-8.6 10 ^3/uL Lymphocytes # (Auto) 0.8 0.4-5.4 10 ^3/uL Monocytes # (Auto) 0.6 0-1.3 10 ^3/uL Eosinophils # (Auto) 0.1 0-0.8 10 ^3/uL Basophils # (Auto) 0 0-0.2 10 ^3/uL Nucleated Red Blood Cells 0.1 % Sodium Level 137 136-145 mmol/L Potassium Level 3.7 3.5-5.1 mmol/L Chloride Level 104 98-107 mmol/L Carbon Dioxide Level 26 20-31 mmol/L Anion Gap 7 5-15 Blood Urea Nitrogen 12 9-23 mg/dL Creatinine 0.99 0.550-1.02 mg/dL Glomerular Filtration Rate Calc 77 >90 mL/min BUN/Creatinine Ratio 12.1 10.0-20.0 Serum Glucose 115 H 74-106 mg/dL Calcium Level 9.5 8.7-10.4 mg/dL Total Bilirubin 1.3 H 0.2-1.0 mg/dL Aspartate Amino Transferase (AST) 15 13-40 U/L Alanine Aminotransferase (ALT) 16 7-40 U/L Alkaline Phosphatase 82 46-116 U/L Total Protein 7.7 5.7-8.2 g/dL Albumin 4.6 3.2-4.8 g/dL Lipase 36 12-53 U/L Beta HCG, Quantitative < 1.5 L 1.5-4.2 mIU/mL Current Medications Medications (Trade) Dose Ordered Sig/Poli Route Start Time Stop Time Status Last Admin Morphine Sulfate 4 mg ONCE ONCE IV 04/26/24 13:00 04/26/24 13:01 DC 04/26/24 14:13 Prochlorperazine Edisylate (Compazine Inj) 10 mg ONCE ONCE IV 04/26/24 13:00 04/26/24 13:01 DC 04/26/24 14:13 Pantoprazole Sodium (Protonix) 40 mg ONCE ONCE IV 04/26/24 13:00 04/26/24 13:01 DC 04/26/24 14:13 Clonidine HCl (Catapres Tablet) 0.2 mg ONCE ONCE PO 04/26/24 14:00 04/26/24 14:01 DC 04/26/24 13:52 Hydralazine HCl (Apresoline Injection) 10 mg ONCE ONCE IV 04/26/24 15:30 04/26/24 15:31 DC 04/26/24 15:32 Morphine Sulfate 2 mg ONCE ONCE IV 04/26/24 15:30 04/26/24 15:31 DC 04/26/24 15:32 Ondansetron HCl (Zofran) 4 mg ONCE ONCE IV 04/26/24 15:30 04/26/24 15:31 DC 04/26/24 15:30 The ultrasound of the gallbladder is unremarkable The patient continues to have pain The patient did receive morphine 4 mg IV push for the pain The patient received Compazine 10 mg IV push The patient received Protonix 40 mg IV push The patient was then given Catapres 0.2 mg by mouth for the elevated blood pressure The patient's blood pressure continued to elevate so the patient was given hydralazine 10 mg IV push The patient was also given morphine again and Zofran for the nausea and pain At this time, the patient was being admitted The quantitative hCG is negative The CBC and chemistry panel are within normal limits Time of 1ST Reevaluation: 13:20 Reevaluation 1ST: Unchanged Patient Education/Counseling: Diagnosis, Treatment, Prognosis Family Education/Counseling: Diagnosis, Treatment, Prognosis Departure 1 Departure Time of Disposition: 19:12 Impression: Primary Impression: Intractable abdominal pain Additional Impression: Accelerated hypertension Disposition: ADMITTED INPATIENT [facility]mit to: [facility] Condition: Fair Critical Care Note Critical Care Time?: No Stability Stability form required: Yes Unstable for transfer: ED Physician Assesment (Clinical assesment) Heart Score Heart Score: Heart Score Response (Comments) Value History N/A 0 EKG N/A 0 Age N/A 0 Risk Factors N/A 0 Troponin N/A 0 Total 0 I personally scribed for ANUPAMA NOYOLA MD ([email or web address]) on 04/26/24 at 12:57. Electronically submitted by Jerrod Lester ([email or web address]). ANUPAMA NOYOLA MD Apr 26, 2024 12:57
[2024-04-26 13:33] LABS: Basophils # (auto) 0 10 ^3/uL (0-0.2); Eosinophils # (auto) 0.1 10 ^3/uL (0-0.8); Eosinophils % (auto) 1.1 % (0.0-7.0); Mean Corpuscular Volume 78.8 fL (80.0-100.0)
[2024-04-26 13:36] LABS: Basophils % (auto) 0.2 % (0.0-2.0); Hematocrit 34.4 % (36.0-46.0); Hemoglobin 10.9 g/dL (12.2-16.2); Lymphocytes # (auto) 0.8 10 ^3/uL (0.4-5.4); Mean Corpuscular Hemoglobin 25.1 pg (28.0-32.0); Mean Corpuscular Hgb Conc. 31.8 g/dL (32.0-36.0); Monocytes # (auto) 0.6 10 ^3/uL (0-1.3); Monocytes % (auto) 7.8 % (0.0-12.0); Neutrophils # (auto) 6.4 10 ^3/uL (1.6-8.6); Neutrophils % (auto) 80.9 % (37.0-80.0); Nucleated Red Blood Cells % 0.1 %; Platelet Count (auto) 314 10^3/uL (140-450); Red Blood Cells 4.37 10^6/uL (4.0-5.20); Red Cell Distribution Width 16.7 % (11.8-14.3); White Blood Cell 7.9 10^3/uL (4.4-10.8)
--- NOTE | 2024-04-26 13:47 | DVH ---
Procedure: US GALLBLADDER Study Date and Requested Time: 04/26/2024 01:06 PM History: pain Comparison: None Technique: Multiple high resolution beebe-scale images obtained of the right upper quadrant of the abd omen with color Doppler for evaluation of blood flow and vascularity as indicated. Findings: Liver normal in size, measuring 12.9 cm in length, with homogenous echotexture and normal contours. N o evidence of focal hepatic lesions, intrahepatic or extrahepatic ductal dilatation. Common bile duct measures 0.4 cm in diameter. Gallbladder unremarkable with no evidence of abnormal wall thickening, gallstones, biliary sludge, or pericholecystic fluid. Negative sonographic Lyons's sign. Pancreas is unremarkable. Right kidney measures 8.7 cm in length, with normal contours, echotexture, and cortical thickness. No evidence of hydronephrosis, calculi, cystic or solid renal lesions. Partially visualized inferior vena cava unremarkable. Impression: Unremarkable sonographic study of the right upper quadrant of the abdomen.
[2024-04-26 13:51] LABS: Alanine Aminotransferase 16 U/L (7-40); Albumin 4.6 g/dL (3.2-4.8); Alkaline Phosphatase 82 U/L (46-116); Anion Gap 7 (5-15); Aspartate Aminotransferase 15 U/L (13-40); BUN/Creatinine Ratio 12.1 (10.0-20.0); Blood Urea Nitrogen 12 mg/dL (9-23); Calcium 9.5 mg/dL (8.7-10.4); Carbon Dioxide 26 mmol/L (20-31); Chloride 104 mmol/L (98-107); Potassium 3.7 mmol/L (3.5-5.1); Sodium 137 mmol/L (136-145); Total Protein 7.7 g/dL (5.7-8.2)
[2024-04-26] MEDS: cloNIDine HCL 0.1 MG TAB PO ONE (13:52)
[2024-04-26 13:53] LABS: Bilirubin, Total 1.3 mg/dL (0.2-1.0); Glucose 115 mg/dL (74-106)
[2024-04-26 14:00] VITALS: PULSE 90; RESP 18; O2SAT 100
[2024-04-26] MEDS: PROCHLORPERAZINE EDISYLATE 5 MG/ML 2ML VIAL IV ONE (14:13)
[2024-04-26] MEDS: MORPHINE SULFATE 4 MG/ML SYR/VIAL IV ONE (14:13)
[2024-04-26] MEDS: PANTOPRAZOLE 40 MG/10 ML VIAL INJ IV ONE (14:13)
[2024-04-26 14:27] LABS: Lipase 36 U/L (12-53)
[2024-04-26] MEDS: SODIUM CHLORIDE 0.9% 500 ML IVB ONE (15:21)
[2024-04-26] MEDS: ONDANSETRON HCL 4 MG/2 ML VIAL IV ONE (15:30)
[2024-04-26] MEDS: MORPHINE SULFATE INJ 2 MG/ml SYRG IV ONE (15:32)
[2024-04-26] MEDS: hydrALAZINE HCL 20 MG/ML VL IV ONE (15:32)
[2024-04-26 18:07] VITALS: RESP 20
[2024-04-26 18:17] LABS: Urine Bacteria None Seen /hpf (None Seen)
[2024-04-26 18:28] LABS: Urine Blood Negative /uL (Negative); Urine Clarity Turbid (Clear); Urine Color Light-Yellow (Yellow); Urine Mucus FEW (None Seen); Urine Protein, UAD 1+ (Negative); Urine Specific Gravity 1.017 (1.001-1.035); Urine Squamous Epithelial Cell FEW /hpf (<5); Urine Urobilinogen Normal (Negative); Urine WBC 6 /HPF (0-5)
[2024-04-26 20:52] VITALS: BP 119/86; PULSE 100; TEMP 98.4; O2SAT 98
== END 2024-04-26 21:05 | disposition left against medical advice (07) ==
LOC: EDBD 12:34 → ER 12:34
DX: R10.9 Unspecified abdominal pain (principal); I11.0 Hypertensive heart disease with heart failure; I50.9 Heart failure, unspecified; R07.9 Chest pain, unspecified; R51.9 Headache, unspecified; F41.9 Anxiety disorder, unspecified; R11.2 Nausea with vomiting, unspecified; Z86.73 Personal history of transient ischemic attack (TIA), and cerebral infarction without residual deficits
CPT/HCPCS: 36415; 76705; 80053; 81001; 83690; 84702; 85025; 93005; 96374; 96375; 96376; 99285; J0360; J0780; J2270; J2405; J2470

== ENCOUNTER 2024-05-29 08:16 | Inpatient (IN) | payer BC, MEDICAID ==
[~2024-05-29] VITALS: Ht 170.2 cm; Wt 80.0 kg
--- NOTE | 2024-05-29 08:34 | ED.PDOC ---
HPI Comments 34 year old female RADHA presents to the ED with chief complaint of chest pain. Patient reports that she has been experiencing chest heaviness for the past 2 days. EMS relays patient has history of HTN. Patient's BP was noted to be 207/140 in triage. Patient denies any N/V, SOB, dizziness, headache, blurred vision, numbness, or weakness. Chief Complaint: Chest Pain Time Seen by MD: 08:32 Primary Care Provider: unknown Reviewed Notes: Nurses Notes, Roll Handler Notes, Medications, Allergies Allergies: Coded Allergies: NO KNOWN ALLERGIES (Unverified , 08/31/21) Home Meds Active Scripts Aspirin (Aspir-81) 81 Mg Tab, 1 TAB PO DAILY for 60 Days, #60 TAB 5 Refills Prov:THEE SANTIZO DOCTOR'S ASSISTANT 09/04/23 Nifedipine (Nifedipine ER) 30 Mg Tab, 30 MG PO DAILY for 60 Days, #60 TAB Prov:THEE SANTIZO DOCTOR'S ASSISTANT 09/04/23 Nitrofurantoin Monohydrate Mac (Macrobid) 100 Mg Cap, 100 MG PO BID for 7 Days, #14 CAP Prov:OMAR GIBSON MD 07/09/22 Nitrofurantoin Monohydrate Mac (Macrobid) 100 Mg Cap, 100 MG PO BID for 7 Days, #14 CAP Prov:OMAR GIBSON MD 06/12/22 Nitrofurantoin Monohydrate Mac (Macrobid) 100 Mg Cap, 100 MG PO BID for 7 Days, #14 CAP Prov:LUIS ALBERTO MANN PAC 05/12/22 Clonidine Hydrochloride (Clonidine Hcl) 0.2 Mg Tab, 1 TAB PO BID, #30 TAB 0 Refills Prov:LUIS ALBERTO MANN PAC 05/12/22 Amlodipine Besylate (NORVASC TABLET) 5 Mg Tb, 10 MG PO DAILY for 90 Days, #180 TAB Prov:THEE SANTIZO DOCTOR'S ASSISTANT 02/28/22 Tramadol Hcl (Tramadol Hcl) 50 Mg Tab, 50 MG PO BID for 5 Days, #10 TAB Prov:JULIA SCHUMACHER MD 11/20/21 Metoclopramide Hcl (Reglan) 10 Mg Tab, 10 MG PO BID for 10 Days, #20 TAB Prov:JULIA SCHUMACHER MD 11/20/21 Dapagliflozin Propanediol (Farxiga) 10 Mg Tab, 10 MG PO DAILY for 30 Days, #30 TAB 3 Refills Prov:WILL ROWLAND MD 08/26/21 Acyclovir (Acyclovir) 400 Mg Tab, 400 MG PO TID for 7 Days, #21 TAB Prov:WILL ROWLAND MD 08/26/21 Levofloxacin (Levaquin) 500 Mg Tab, 500 MG PO DAILY for 7 Days, #7 TAB Prov:WILL ROWLAND MD 08/16/21 Sacubitril-Valsartan (Entresto 24-26 mg) 1 Tab Tab, 1 TAB PO BID for 30 Days, #60 TAB 3 Refills Prov:WILL ROWLAND MD 08/16/21 Metoprolol Tartrate (LOPRESSOR TABLET) 50 Mg Tb, 25 MG PO BID for 30 Days, #30 TAB 3 Refills Prov:WILL ROWLAND MD 08/16/21 Hydralazine HCl (Hydralazine HCl) 25 Mg Tab, 50 MG PO TID for 30 Days, #90 TAB 3 Refills Prov:WILL ROWLAND MD 08/16/21 Aspirin (Aspirin Low Strength) 81 Mg Chw, 81 MG PO DAILY for 30 Days, #30 TAB.CHEW 2 Refills Prov:WILL ROWLAND MD 08/16/21 Hydralazine HCl (Hydralazine HCl) 25 Mg Tab, 25 MG PO BID for 60 Days, #120 TAB Prov:EMILIANO HARDWICK MD 01/22/19 Metoprolol Tartrate (LOPRESSOR TABLET) 50 Mg Tb, 50 MG PO BID for 60 Days, #120 TAB Prov:EMILIANO HARDWICK MD 01/22/19 Enalapril Maleate (Enalapril Maleate) 10 Mg Tab, 40 MG PO DAILY for 60 Days, #240 TAB Prov:EMILIANO HARDWICK MD 01/22/19 Reported Medications Aripiprazole (Abilify) 5 Mg Tab, 5 MG PO BID, TAB 02/27/22 Clonidine Hydrochloride (Clonidine Hcl) 0.1 Mg Tab 08/14/21 Information Source: Patient, Emergency Med Personnel Mode of Arrival: EMS Severity: Moderate Timing: Days Duration: Since onset Prehospital treatment: None Location: Chest (L) Radiation: No Radiation Quality: Heavy Onset: At Rest Cardiac Risk Factors: HTN PE Risk Factors: None History of: None Past Medical History PAST MEDICAL HISTORY: Anxiety, CHF, CVA, HTN, TIA Surgical History: Denies all surgeries 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: No Pertinent INTERNET 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 History Family History Family History: Reviewed,noncontributory to illness, Unknown Social History Smoker: Non-Smoker Alcohol: Denies ETOH Use Drugs: Denies Drug Use Lives In: Home Constitutional: denies: chills, diaphoresis, fatigue, fever, malaise, sweats, weakness, others EENTM: denies: blurred vision, double vision, ear bleeding, ear discharge, ear drainage, ear pain, ear ringing, eye pain, eye redness, hearing loss, mouth p ain, mouth swelling, nasal discharge, nose bleeding, nose congestion, nose pain, photophobia, tearing, throat pain, throat swelling, voice changes, others Respiratory: denies: cough, hemoptysis, orthopnea, SOB at rest, shortness of br eath, SOB with excertion, stridor, wheezing, others Cardiovascular: reports: chest pain; denies: dizzy spells, diaphoresis, Dyspnea on exertion, edema, irregular heart beat, left arm pain, lightheadedness, palpitations, PND, syncope, others Gastrointestinal: denies: abdomen distended, abdominal pain, blood streaked alisha wels, constipated, diarrhea, dysphagia, difficulty swallowing, hematemesis, melena, nausea, poor appetite, poor fluid intake, rectal bleeding, rectal pain, vomiting, others Genitourinary: denies: abnormal vagina bleeding, burning, dyspareunia, dysuria, flank pain, frequency, hematuria, incontinence, pain, , vagina discharge, urgency, others Neurological: denies: dizziness, fainting, headache, left sided numbness, left sided weakness, numbness, paresthesia, pre-existing deficit, right sided numbness, right sided weakness, seizure, speech problems, tingling, tremors, weakness, others Musculoskeletal: denies: back pain, gout, joint pain, joint swelling, muscle pain, muscle stiffness, neck pain, others Integumetry: denies: bruises, change in color, change in hair/nails, dryness, laceration, lesions, lumps, rash, wounds, others Allergic/Immunocompromised: denies: Difficulty Healing, Frequent Infections, Hives, Itching, others Hematologic/Lymphatic: denies: anemia, blood clots, easy bleeding, easy bruis ing, swollen glands, others Endocrine: denies: excessive hunger, excessive sweating, excessive thirst, exc essive urination, flushing, intolerance to cold, intolerance to heat, unexplained weight gain, unexplained weight loss, others Psychiatric: denies: anxiety, bipolar disorder, depression, hopeless, panic disorder, schizophrenia, sleepless, suicidal, others All Other Systems: Reviewed and Negative Physical Exam General Appearance: Moderate Distress, Normal HEENT: Normal ENT Inspection, PERRL/EOMI Neck: Full Range of Motion, Non-Tender, Normal, Normal Inspection Respiratory: Chest Non-Tender, Lungs Clear, No Accessory Muscle Use, No Respiratory Distress, Normal Breath Sounds Cardiovascular: No Edema, No JVD, No Murmur, No Gallop, Normal Peripheral Pulses, Regular Rate/Rhythm Breast Exam: Deferred Gastrointestinal: No Organomegaly, Non Tender, No Pulsatile Mass, Normal Bowel Sounds, Soft Genitalia: Deferred Pelvic: Deferred Rectal: Deferred Extremities: No calf tenderness, Normal capillary refill, Normal inspection, Normal range of motion, Non-tender, No pedal edema Musculoskeletal : Apperance: Normal Neurologic: Alert, director of sales and marketing II-XII nml as Tested, No Motor Deficits, Normal Affect, Normal Mood, No Sensory Deficits Cerebellar Function: NOT DONE Reflexes: NOT DONE Skin: Dry, Normal Color, Warm Peripheral Pulses: 3+ Radial (R), 3+ Radial (L) Lymphatic: No Adenopathy Was a procedure done? Was a procedure done?: No CP Differential Dx Differential Diagnosis: A-fib, A-Flutter, Angina, Anxiety / Panic Attack, Atrial Dysrhythmia, Electrolyte Disorder X-Ray, Labs, Meds, VS Vital Signs Date Time Temp Pulse Resp B/P (MAP) Pulse Ox O2 Delivery O2 Flow Rate FiO2 05/29/24 10:27 197/145 05/29/24 10:00 84 16 197/145 (162) 97 05/29/24 09:08 199/129 05/29/24 08:45 89 16 97 Room Air* 0 21 05/29/24 08:45 97.5 89 16 199/129 (152) 97 97.5 05/29/24 08:34 207/140 (162) 05/29/24 08:25 96.6 91 16 198/146 (163) 98 96.6 05/29/24 08:18 88 05/29/24 08:16 96.6 91 16 198/146 (163) 98 Lab Test 05/29/24 09:36 05/29/24 09:15 05/29/24 08:36 Range/Units Troponin I High Sensitivity 19 20 </=34 ng/L Urine Color Light-yellow Yellow Urine Clarity Clear Clear Urine pH 7.0 5.0-9.0 Urine Specific [place] 1.013 1.001-1.035 Urine Protein Negative Negative Urine Ketones Negative Negative Urine Blood 2+ H Negative /uL Urine Nitrite Negative Negative Urine Bilirubin Negative Negative Urine Urobilinogen Normal Negative mg/dL Urine Leukocyte Esterase Negative Negative /uL Urine RBC 1 0 - 4 /hpf Urine Microscopic WBC 2 0-5 /HPF Urine Squamous Epithelial Cells Few <5 /hpf Urine Bacteria None seen None Seen /hpf Urine Glucose Trace Normal mg/dL White Blood Count 7.4 4.4-10.8 10^3/uL Red Blood Count 4.39 4.0-5.20 10^6/uL Hemoglobin 10.1 L 12.2-16.2 g/dL Hematocrit 32.8 L 36.0-46.0 % Mean Corpuscular Volume 74.7 L 80.0-100.0 fL Mean Corpuscular Hemoglobin 22.9 L 28.0-32.0 pg Mean Corpuscular Hemoglobin Concent 30.7 L 32.0-36.0 g/dL Red Cell Distribution Width 17.2 H 11.8-14.3 % Platelet Count 295 140-450 10^3/uL Mean Platelet Volume 8.4 6.9-10.8 fL Neutrophils (%) (Auto) 90.7 H 37.0-80.0 % Lymphocytes (%) (Auto) 5.5 L 10.0-50.0 % Monocytes (%) (Auto) 2.9 0.0-12.0 % Eosinophils (%) (Auto) 0.2 0.0-7.0 % Basophils (%) (Auto) 0.7 0.0-2.0 % Neutrophils # (Auto) 6.7 1.6-8.6 10 ^3/uL Lymphocytes # (Auto) 0.4 0.4-5.4 10 ^3/uL Monocytes # (Auto) 0.2 0-1.3 10 ^3/uL Eosinophils # (Auto) 0 0-0.8 10 ^3/uL Basophils # (Auto) 0.1 0-0.2 10 ^3/uL Nucleated Red Blood Cells 0.2 % Sodium Level 138 136-145 mmol/L Potassium Level 3.5 3.5-5.1 mmol/L Chloride Level 103 98-107 mmol/L Carbon Dioxide Level 26 20-31 mmol/L Anion Gap 9 5-15 Blood Urea Nitrogen 13 9-23 mg/dL Creatinine 1.04 H 0.550-1.02 mg/dL Glomerular Filtration Rate Calc 72 >90 mL/min BUN/Creatinine Ratio 12.5 10.0-20.0 Serum Glucose 131 H 74-106 mg/dL Calcium Level 9.1 8.7-10.4 mg/dL Total Bilirubin 1.5 H 0.2-1.0 mg/dL Aspartate Amino Transferase (AST) 20 13-40 U/L Alanine Aminotransferase (ALT) 25 7-40 U/L Alkaline Phosphatase 67 46-116 U/L Total Protein 6.9 5.7-8.2 g/dL Albumin 4.3 3.2-4.8 g/dL Current Medications Medications (Trade) Dose Ordered Sig/Poli Route Start Time Stop Time Status Last Admin Amlodipine Besylate (Norvasc Tablet) 10 mg ONCE ONCE PO 05/29/24 09:15 05/29/24 09:16 DC 05/29/24 09:08 Aspirin 325 mg ONCE ONCE PO 05/29/24 09:15 05/29/24 09:16 DC 05/29/24 09:08 Hydralazine HCl (Apresoline Injection) 10 mg ONCE ONCE IV 05/29/24 10:15 05/29/24 10:21 DC 05/29/24 10:27 Patient alert. Complaining of chest pain. Pressure elevated. Was given aspirin. Was given Norvasc. Was given hydralazine. Blood pressure continues to be high. WBC within normal limits. Urinalysis shows blood. Explained to the patient. Continue monitoring. Time of 1ST Reevaluation: 09:32 Reevaluation 1ST: Unchanged Patient Education/Counseling: Diagnosis, Treatment Family Education/Counseling: No Family Present Departure 1 Departure Time of Disposition: 10:47 Impression: Primary Impression: Hypertensive emergency Additional Impression: Chest pain of unknown etiology Disposition: ADMITTED INPATIENT Admit to: Med Surg Condition: Guarded Critical Care Note Critical Care Time?: Yes (45 min-critical care time only) Stability Stability form required: No Heart Score Heart Score: Heart Score Response (Comments) Value History Moderate Suspicious 1 EKG Normal 0 Age <45 0 Risk Factors 1 or 2 risk factors 1 Troponin Normal limit 0 Total 2 I personally scribed for OMAR GIBSON MD ([email or web address]) on 05/29/24 at 08:34. Electronically submitted by Harry Zayas ([email or web address]). OMAR GIBSON MD May 29, 2024 08:34
[2024-05-29 08:45] VITALS: PULSE 89; RESP 16; O2SAT 97
[2024-05-29] MEDS: amLODIPine BESYLATE 5 MG TAB PO ONE (09:08)
[2024-05-29] MEDS: ASPirin 325 MG TAB PO ONE (09:08)
[2024-05-29 09:16] LABS: Alanine Aminotransferase 25 U/L (7-40); Albumin 4.3 g/dL (3.2-4.8); Alkaline Phosphatase 67 U/L (46-116); Anion Gap 9 (5-15); Aspartate Aminotransferase 20 U/L (13-40); BUN/Creatinine Ratio 12.5 (10.0-20.0); Blood Urea Nitrogen 13 mg/dL (9-23); Calcium 9.1 mg/dL (8.7-10.4); Carbon Dioxide 26 mmol/L (20-31); Chloride 103 mmol/L (98-107); Potassium 3.5 mmol/L (3.5-5.1); Sodium 138 mmol/L (136-145)
[2024-05-29 09:17] LABS: Total Protein 6.9 g/dL (5.7-8.2)
[2024-05-29 09:18] LABS: Bilirubin, Total 1.5 mg/dL (0.2-1.0); Glucose 131 mg/dL (74-106)
[2024-05-29 09:25] LABS: Urine Bacteria None Seen /hpf (None Seen)
[2024-05-29 09:37] LABS: Urine Blood 2+ /uL (Negative); Urine Clarity Clear (Clear); Urine Color Light-Yellow (Yellow); Urine Protein, UAD Negative (Negative); Urine Specific Gravity 1.013 (1.001-1.035); Urine Squamous Epithelial Cell FEW /hpf (<5); Urine Urobilinogen Normal (Negative); Urine WBC 2 /HPF (0-5)
[2024-05-29 09:40] LABS: Basophils # (auto) 0.1 10 ^3/uL (0-0.2); Basophils % (auto) 0.7 % (0.0-2.0); Eosinophils # (auto) 0 10 ^3/uL (0-0.8); Eosinophils % (auto) 0.2 % (0.0-7.0); Hematocrit 32.8 % (36.0-46.0); Hemoglobin 10.1 g/dL (12.2-16.2); Lymphocytes # (auto) 0.4 10 ^3/uL (0.4-5.4); Lymphocytes % (auto) 5.5 % (10.0-50.0); Mean Corpuscular Hemoglobin 22.9 pg (28.0-32.0); Mean Corpuscular Hgb Conc. 30.7 g/dL (32.0-36.0); Mean Corpuscular Volume 74.7 fL (80.0-100.0); Monocytes # (auto) 0.2 10 ^3/uL (0-1.3); Monocytes % (auto) 2.9 % (0.0-12.0); Neutrophils # (auto) 6.7 10 ^3/uL (1.6-8.6); Neutrophils % (auto) 90.7 % (37.0-80.0); Nucleated Red Blood Cells % 0.2 %; Platelet Count (auto) 295 10^3/uL (140-450); Red Blood Cells 4.39 10^6/uL (4.0-5.20); Red Cell Distribution Width 17.2 % (11.8-14.3); White Blood Cell 7.4 10^3/uL (4.4-10.8)
[2024-05-29] MEDS: hydrALAZINE HCL 20 MG/ML VL IV ONE (10:27)
--- NOTE | 2024-05-29 10:27 | ECG ---
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
[2024-05-29] MEDS: ONDANSETRON HCL 4 MG/2 ML VIAL IV ONE (11:12)
[2024-05-29] MEDS: MORPHINE SULFATE 4 MG/ML SYR/VIAL IV ONE (11:12)
[2024-05-29] MEDS ORDERED: MORPHINE SULFATE INJ 2 MG/ml SYRG IV PRN (12:30)
[2024-05-29] MEDS ORDERED: NITROGLYCERIN 0.4 MG SL TAB SL PRN (12:30)
[2024-05-29] MEDS ORDERED: ONDANSETRON HCL 4 MG/2 ML VIAL IV PRN (12:30)
--- NOTE | 2024-05-29 12:51 | DVHHP2 ---
History of Present Illness Reason for Visit: Cough with chest pain, abdominal pain History of Present Illness Bennie Porter is a 34-year-old patient with past medical history of CHF, hypertension, TIA, mentally delayed, and anxiety who came in due to abdominal pain and chest pain. Patient states the chest pain began yesterday with a cough that was productive. This morning her cough continued. She continued to cough up mucous, and then her cough worsened to where she was vomiting and having abdominal pain and that is when her mom called EMS. Patient states she use to have a life vest. Patient has had 2 ECHO's completed here within the last 5 years. Both ECHO's have considerably different EFs documented, will order a new ECHO and consult cardiology. 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 Past Surgical History: None Family History: None Smoke: No ALCOHOL: rare Drugs: None Lives: with Family Domestic Violence: Neg Review of Systems Constitutional: No: Fever, Chills, Sweats, Weakness, Malaise, Other Eyes: No: Pain, Vision change, Conjunctivae inflammation, Eyelid inflammation, Other, Redness ENT: No: Ear pain, Ear discharge, Nose pain, Nose discharge, Nose congestion, Mouth pain, Mouth swelling, Throat pain, Throat swelling, Other Respiratory: Cough, Sputum; No: Dry, Shortness of breath, SOB with excertion, Wheezing, Hemoptysis, Pleuritic Pain, Wheezing, Other Cardiovascular: Edema (bilateral lower extremities); No: Chest Pain, Palpitations, Orthopnea, Paroxysmal Noc. Dyspnea, Lt Headedness, Other Gastrointestinal: Nausea, Abdominal Pain; No: Vomiting, Diarrhea, Constipation, Melena, Hematochezia, Other Genitourinary: No Dysuria, No Frequency, No Incontinence, No Hematuria, No Retention, No Other Musculoskeletal: No: other, neck pain, shoulder pain, arm pain, back pain, hand pain, leg pain, foot pain Skin: No: Rash, Lesions, Jaundice, Bruising, Other Neurological: No: Weakness, Numbness, Incoordination, Change in speech, Confusion, Seizures, Other Allergies: Coded Allergies: NO KNOWN ALLERGIES (Unverified , 08/31/21) Medications Current Medications Medications Dose Ordered Sig/Poli Route Start Time Stop Time Status Last Admin Dose Admin Sodium Chloride 10 ml Q8HR IV 05/29/24 14:00 UNV Acetaminophen/ Hydrocodone Bitart 1 tab Q4HP PRN PO 05/29/24 12:30 UNV Ondansetron HCl 4 mg Q4HP PRN IV 05/29/24 12:30 UNV Docusate Sodium 100 mg BIDPRN PRN PO 05/29/24 12:30 UNV Acetaminophen 650 mg Q6HP PRN PO 05/29/24 12:30 UNV Nitroglycerin 0.4 mg Q5MINP PRN SL 05/29/24 12:30 UNV Morphine Sulfate 2 mg Q30M PRN IV 05/29/24 12:30 UNV Amlodipine Besylate 10 mg DAILY PO 05/30/24 10:00 UNV Metoprolol Tartrate 50 mg BID PO 05/29/24 22:00 UNV Patient Own Medication 5 mg BID PO 05/29/24 22:00 UNV Patient Own Medication 81 mg DAILY PO 05/30/24 10:00 UNV Exam Vital Signs Vital Signs Date Time Temp Pulse Resp B/P (MAP) Pulse Ox O2 Delivery O2 Flow Rate FiO2 05/29/24 11:12 91 16 189/126 05/29/24 11:08 97.5 100 97.5 05/29/24 08:45 Room Air* 0 21 General Appearance: Alert, Oriented X3, Cooperative HEENT: Atraumatic, PERRLA Respiratory: Clear to auscultation, Normal air movement Cardiovascular: Regular rate, Normal S1, Normal S2 Abdominal: Normal bowel sounds, Soft Extremities: No clubbing, No cyanosis, Other (bilateral lower extremity edema) Skin: No rashes, No breakdown, No significant lesion Neuro: Normal gait, Normal speech, Strength at 5/5 X4 ext Psych/Mental Status: Mental status NL, Mood NL Labs/Xrays Labs Test 05/29/24 09:36 05/29/24 09:15 05/29/24 08:36 Range/Units Troponin I High Sensitivity 19 </=34 ng/L Urine Color Light-yellow Yellow Urine Clarity Clear Clear Urine pH 7.0 5.0-9.0 Urine Specific [place] 1.013 1.001-1.035 Urine Protein Negative Negative Urine Ketones Negative Negative Urine Blood 2+ H Negative /uL Urine Nitrite Negative Negative Urine Bilirubin Negative Negative Urine Urobilinogen Normal Negative mg/dL Urine Leukocyte Esterase Negative Negative /uL Urine RBC 1 0 - 4 /hpf Urine Microscopic WBC 2 0-5 /HPF Urine Squamous Epithelial Cells Few <5 /hpf Urine Bacteria None seen None Seen /hpf Urine Glucose Trace Normal mg/dL White Blood Count 7.4 4.4-10.8 10^3/uL Red Blood Count 4.39 4.0-5.20 10^6/uL Hemoglobin 10.1 L 12.2-16.2 g/dL Hematocrit 32.8 L 36.0-46.0 % Mean Corpuscular Volume 74.7 L 80.0-100.0 fL Mean Corpuscular Hemoglobin 22.9 L 28.0-32.0 pg Mean Corpuscular Hemoglobin Concent 30.7 L 32.0-36.0 g/dL Red Cell Distribution Width 17.2 H 11.8-14.3 % Platelet Count 295 140-450 10^3/uL Mean Platelet Volume 8.4 6.9-10.8 fL Neutrophils (%) (Auto) 90.7 H 37.0-80.0 % Lymphocytes (%) (Auto) 5.5 L 10.0-50.0 % Monocytes (%) (Auto) 2.9 0.0-12.0 % Eosinophils (%) (Auto) 0.2 0.0-7.0 % Basophils (%) (Auto) 0.7 0.0-2.0 % Neutrophils # (Auto) 6.7 1.6-8.6 10 ^3/uL Lymphocytes # (Auto) 0.4 0.4-5.4 10 ^3/uL Monocytes # (Auto) 0.2 0-1.3 10 ^3/uL Eosinophils # (Auto) 0 0-0.8 10 ^3/uL Basophils # (Auto) 0.1 0-0.2 10 ^3/uL Nucleated Red Blood Cells 0.2 % Sodium Level 138 136-145 mmol/L Potassium Level 3.5 3.5-5.1 mmol/L Chloride Level 103 98-107 mmol/L Carbon Dioxide Level 26 20-31 mmol/L Anion Gap 9 5-15 Blood Urea Nitrogen 13 9-23 mg/dL Creatinine 1.04 H 0.550-1.02 mg/dL Glomerular Filtration Rate Calc 72 >90 mL/min BUN/Creatinine Ratio 12.5 10.0-20.0 Serum Glucose 131 H 74-106 mg/dL Calcium Level 9.1 8.7-10.4 mg/dL Total Bilirubin 1.5 H 0.2-1.0 mg/dL Aspartate Amino Transferase (AST) 20 13-40 U/L Alanine Aminotransferase (ALT) 25 7-40 U/L Alkaline Phosphatase 67 46-116 U/L Total Protein 6.9 5.7-8.2 g/dL Albumin 4.3 3.2-4.8 g/dL CHEST RADIOGRAPH FINDINGS: Lines and Tubes: None Lungs: No focal consolidation. Pleura: No effusion. No pneumothorax. Cardiomediastinal contours: Unremarkable Bones: No acute osseous abnormality. IMPRESSION: No acute cardiopulmonary disease. Assessment/Plan Assessment/Plan Assessment: Hypertensive emergency, CHF exacerbation, Elevated BNP, Hyperglycemia, Plan: Admit to Tele, Cardiology consult, ECHO, BP control, Lipid panel, A1c, TSH, IV Lasix x 1, PO Lasix daily, Home medications reconciled, Plan discussed with: Patient My Orders Orders - ZEINAB FAITH Procedure Category Date Status Time Admit ADMIT 05/29/24 Transmitted 12:27 Code Status CODE 05/29/24 Transmitted 12:27 Sodium Chloride Lock PHA 05/29/24 Logged (Saline Lock Ns) 14:00 Hydrocodone-Acet PHA 05/29/24 Logged 5/325mg Tab ([place] 12:30 Ondansetron Hcl PHA 05/29/24 Logged (Zofran) 12:30 Docusate Sodium PHA 05/29/24 Logged Capsule (Colace 12:30 Complete Blood Count LAB 05/30/24 Verified 04:00 Comprehensive LAB 05/30/24 Verified Metabolic Panel 04:00 Cardiac DIET 05/29/24 Transmitted Diet-2gna,Lofat,Lochol Lunch Condition: Critical CASSANDRA 05/29/24 In Process 12:27 Acetaminophen Tablet PHA 05/29/24 Logged (Tylenol Tablet) 12:30 Nitroglycerin PHA 05/29/24 Transmitted Sublingual (Ntrostat 12:30 Morphine Sulfate PHA 05/29/24 Transmitted Injection 12:30 Stat Ekg For Chest CASSANDRA 05/29/24 In Process Pain 12:27 Notify Of Changes CASSANDRA 05/29/24 In Process From Base 12:27 Director Hospice Operations For CASSANDRA 05/29/24 In Process 24 Hours 12:27 Emergency Dysrhythmia CASSANDRA 05/29/24 In Process Protocol 12:27 Rhythm Strips Once CASSANDRA 05/29/24 In Process Every Shift 12:27 Oxygen By Nasal RT 05/29/24 Transmitted Cannula 12:27 Chest Xray 1 View XY 05/29/24 Logged 12:27 Amlodipine Tablet PHA 05/30/24 Transmitted (Norvasc Tablet) 10:00 Metoprolol Tartrate PHA 05/29/24 Transmitted Tablet (Lopressor Ta 22:00 (Nf) Aripiprazole PHA 05/29/24 Transmitted (Abilify) 22:00 (Nf) Aspirin (Aspirin PHA 05/30/24 Transmitted Low Strength) 10:00 * Cardiology Consult CONS 05/29/24 Transmitted 12:33 Echo 2d Mode Cardiac US 05/29/24 Transmitted DOP 12:33 Date of Service: May 29, 2024 Billing Provider: ZEINAB FAITH Common Visit Codes: [id number] INP/OBS CARE (MOD) ZEINAB FAITH May 29, 2024 12:51
--- NOTE | 2024-05-29 13:04 | DVH ---
CHEST RADIOGRAPH Indication: CP Technique: Single frontal view of the chest was obtained Comparison: XY CHEST XRAY 1 VIEW on DOS: 09/03/23, XY CHEST PORTABLE on DOS: 09/01/23, XY CHEST PORTABLE on DOS: 07/09/22, XY CHEST XRAY 1 VIEW on DOS: 06/19/22, CHEST PORTABLE on DOS: 05/12/22 FINDINGS: Lines and Tubes: None Lungs: No focal consolidation. Pleura: No effusion. No pneumothorax. Cardiomediastinal contours: Unremarkable Bones: No acute osseous abnormality. IMPRESSION: No acute cardiopulmonary disease.
[2024-05-29] MEDS: cloNIDine HCL 0.1 MG TAB PO ONE (13:30)
[2024-05-29 13:54] LABS: Triglycerides 42 mg/dL (< 150)
[2024-05-29 13:55] LABS: LDL Cholesterol 81 mg/dL (< 100)
[2024-05-29] MEDS: FUROSEMIDE 40 MG/4 ML VIAL IV ONE (13:55)
[2024-05-29 13:56] LABS: Cholesterol 120 mg/dL (< 200)
[2024-05-29] MEDS: SODIUM CHLOR 0.9% PF (SALINE LOCK) 10ML VIAL/SYR IV SCH (13:56)
[2024-05-29 13:57] LABS: HDL Cholesterol 33 mg/dL (40-59)
--- NOTE | 2024-05-29 15:29 | DVHINCON2 ---
Date Seen: May 29, 2024 Referring Physician ENRRIQUE Claros Reason for Consultation Hypertensive emergency History of Present Illness This is a 34-year-old female patient who presents to emergency room with chief complaint of cough, abdominal pain, and chest pain that began yesterday. The patient describes the chest pain as unprovoked, intermittent, sharp in nature, and generalized all over her chest. She also reports left lower quadrant pain as well as back pain. She comes to the emergency room for further evaluation. While in the emergency room, she was noted to have a blood pressure reaching as high as 207/140. Initial twelve lead electrocardiogram reveals normal sinus rhythm with prolonged QTc interval. Initial troponin level of 20ng/L with flat trend thereafter. Significant past medical history includes congestive heart failure, hypertension, TIA, and obesity. Of note, the patient was seen at this facility on 08/25/21 and underwent a coronary angiogram with left heart catheterization without catheter based intervention. The patient has not followed up with a merchandising specialist in the outpatient setting. Past Medical History Past medical history reviewed. No other significant than mentioned above. Past Surgical History Denies all surgeries Family History: Diabetes mellitus G8 FATHER FH: congestive heart failure G8 MOTHER GRANDMOTHER Hypertension G8 MOTHER G8 FATHER GRANDMOTHER Family History Family history reviewed. Social History Denies the use of tobacco, alcohol or illicit drugs. Allergies: Coded Allergies: NO KNOWN ALLERGIES (Unverified , 08/31/21) Home Meds Active Scripts Nifedipine (Nifedipine ER) 30 Mg Tab, 30 MG PO DAILY for 60 Days, #60 TAB Prov:THEE SANTIZO CLOTH FRAMER 09/04/23 Clonidine Hydrochloride (Clonidine Hcl) 0.2 Mg Tab, 1 TAB PO BID, #30 TAB 0 Refills Prov:LUIS ALBERTO MANN PAC 05/12/22 Amlodipine Besylate (NORVASC TABLET) 5 Mg Tb, 10 MG PO DAILY for 90 Days, #180 TAB Prov:THEE SANTIZO CLOTH FRAMER 02/28/22 Tramadol Hcl (Tramadol Hcl) 50 Mg Tab, 50 MG PO BID for 5 Days, #10 TAB Prov:JULIA SCHUMACHER MD 11/20/21 Metoclopramide Hcl (Reglan) 10 Mg Tab, 10 MG PO BID for 10 Days, #20 TAB Prov:JULIA SCHUMACHER MD 11/20/21 Dapagliflozin Propanediol (Farxiga) 10 Mg Tab, 10 MG PO DAILY for 30 Days, #30 TAB 3 Refills Prov:WILL ROWLAND MD 08/26/21 Acyclovir (Acyclovir) 400 Mg Tab, 400 MG PO TID for 7 Days, #21 TAB Prov:WILL ROWLAND MD 08/26/21 Sacubitril-Valsartan (Entresto 24-26 mg) 1 Tab Tab, 1 TAB PO BID for 30 Days, #60 TAB 3 Refills Prov:WILL ROWLAND MD 08/16/21 Hydralazine HCl (Hydralazine HCl) 25 Mg Tab, 50 MG PO TID for 30 Days, #90 TAB 3 Refills Prov:WILL ROWLAND MD 08/16/21 Aspirin (Aspirin Low Strength) 81 Mg Chw, 81 MG PO DAILY for 30 Days, #30 TAB.CHEW 2 Refills Prov:WILL ROWLAND MD 08/16/21 Hydralazine HCl (Hydralazine HCl) 25 Mg Tab, 25 MG PO BID for 60 Days, #120 TAB Prov:EMILIANO HARDWICK MD 01/22/19 Metoprolol Tartrate (LOPRESSOR TABLET) 50 Mg Tb, 50 MG PO BID for 60 Days, #120 TAB Prov:EMILIANO HARDWICK MD 01/22/19 Enalapril Maleate (Enalapril Maleate) 10 Mg Tab, 40 MG PO DAILY for 60 Days, #240 TAB Prov:EMILIANO HARDWICK MD 01/22/19 Reported Medications Aripiprazole (Abilify) 5 Mg Tab, 5 MG PO BID, TAB 02/27/22 Clonidine Hydrochloride (Clonidine Hcl) 0.1 Mg Tab 08/14/21 Discontinued Scripts Aspirin (Aspir-81) 81 Mg Tab, 1 TAB PO DAILY for 60 Days, #60 TAB 5 Refills Prov:THEE SANTIZO NP 09/04/23 Nitrofurantoin Monohydrate Mac (Macrobid) 100 Mg Cap, 100 MG PO BID for 7 Days, #14 CAP Prov:OMAR GIBSON MD 07/09/22 Nitrofurantoin Monohydrate Mac (Macrobid) 100 Mg Cap, 100 MG PO BID for 7 Days, #14 CAP Prov:OMAR GIBSON MD 06/12/22 Nitrofurantoin Monohydrate Mac (Macrobid) 100 Mg Cap, 100 MG PO BID for 7 Days, #14 CAP Prov:LUIS ALBERTO MANN PAC 05/12/22 Levofloxacin (Levaquin) 500 Mg Tab, 500 MG PO DAILY for 7 Days, #7 TAB Prov:WILL ROWLAND MD 08/16/21 Metoprolol Tartrate (LOPRESSOR TABLET) 50 Mg Tb, 25 MG PO BID for 30 Days, #30 TAB 3 Refills Prov:WILL ROWLAND MD 08/16/21 Home Meds Home medications reviewed. Current Medications Current Medications Medications (Trade) Dose Ordered Sig/Poli Route PRN Reason Start Time Stop Time Status Last Admin Sodium Chloride (Saline Lock Ns) 10 ml Q8HR IV 05/29/24 14:00 05/29/24 13:56 Acetaminophen/ Hydrocodone Bitart ([place] 5/325MG Tab) 1 tab Q4HP PRN PO MODERATE PAIN (4-6 PAIN SCALE) 05/29/24 12:30 Ondansetron HCl (Zofran) 4 mg Q4HP PRN IV NAUSEA / VOMITING 05/29/24 12:30 UNV Docusate Sodium (Colace Capsule) 100 mg BIDPRN PRN PO FOR CONSTIPATION 05/29/24 12:30 Acetaminophen (Tylenol Tablet) 650 mg Q6HP PRN PO PAIN SCALE 1-3 OR TEMP>100.4 05/29/24 12:30 Nitroglycerin (Ntrostat Sublingual) 0.4 mg Q5MINP PRN SL FOR CHEST PAIN 05/29/24 12:30 Morphine Sulfate 2 mg Q30M PRN IV FOR CHEST PAIN 05/29/24 12:30 Amlodipine Besylate (Norvasc Tablet) 10 mg DAILY PO 05/30/24 10:00 Metoprolol Tartrate (Lopressor Tablet) 50 mg BID PO 05/29/24 22:00 Patient Own Medication 5 mg BID PO 05/29/24 22:00 Aspirin 81 mg DAILY PO 05/30/24 10:00 Furosemide (Lasix Tablet) 20 mg DAILY PO 05/30/24 10:00 Review of Systems Constitutional: No symptom reported Ears, Nose, & Throat: No symptom reported Eyes: No symptom reported Neurological: No symptoms reported Pulmonary/Respiratory: Cough Cardiovascular: Chest pain Gastrointestinal: Abdominal pain, left lower quadrant pain Genitourinary: No symptom reported Musculoskeletal: No symptom reported Skin: No symptom reported Psychiatric: No symptom reported Endocrine: No symptom reported Hematologic/Lymphatic: No symptom reported Vital Signs Vital Signs Date Time Temp Pulse Resp B/P (MAP) Pulse Ox O2 Delivery O2 Flow Rate FiO2 05/29/24 13:55 157/108 05/29/24 12:40 98 18 05/29/24 12:30 98.0 95 98.0 05/29/24 08:45 Room Air* 0 21 Physical Exam General Appearance: Cooperative. Well-developed. Well-nourished. No acute distress. Pulmonary/Respiratory: Clear, bilateral breaths sounds. Cardiovascular/Chest: Regular rate and rhythm. Peripheral Pulses: 2+ Radial (R). 2+ Radial (L). 2+ Pedal (R). 2+ Pedal (L) Abdominal Exam: Normal bowel sounds. Ankle Exam: Negative ankle edema Lower extremities: Negative lower extremity edema Neuro/Mental Status: A/OX4, coherent. Thoughts/Psych: Normal thought pattern. Appropriate mood and affect. Good judgment and insight. Appearance: No acute distress. Skin Exam: Normal inspection. Normal color. Warm and dry. Labs/Diagnostic Data Labs Test 05/29/24 14:11 05/29/24 09:36 05/29/24 09:15 05/29/24 08:36 Range/Units Troponin I High Sensitivity 19 </=34 ng/L Triglycerides Level 42 < 150 mg/dL Cholesterol Level 120 < 200 mg/dL LDL Cholesterol 81 < 100 mg/dL HDL Cholesterol 33 L 40-59 mg/dL Urine Color Light-yellow Yellow Urine Clarity Clear Clear Urine pH 7.0 5.0-9.0 Urine Specific [place] 1.013 1.001-1.035 Urine Protein Negative Negative Urine Ketones Negative Negative Urine Blood 2+ H Negative /uL Urine Nitrite Negative Negative Urine Bilirubin Negative Negative Urine Urobilinogen Normal Negative mg/dL Urine Leukocyte Esterase Negative Negative /uL Urine RBC 1 0 - 4 /hpf Urine Microscopic WBC 2 0-5 /HPF Urine Squamous Epithelial Cells Few <5 /hpf Urine Bacteria None seen None Seen /hpf Urine Glucose Trace Normal mg/dL White Blood Count 7.4 4.4-10.8 10^3/uL Red Blood Count 4.39 4.0-5.20 10^6/uL Hemoglobin 10.1 L 12.2-16.2 g/dL Hematocrit 32.8 L 36.0-46.0 % Mean Corpuscular Volume 74.7 L 80.0-100.0 fL Mean Corpuscular Hemoglobin 22.9 L 28.0-32.0 pg Mean Corpuscular Hemoglobin Concent 30.7 L 32.0-36.0 g/dL Red Cell Distribution Width 17.2 H 11.8-14.3 % Platelet Count 295 140-450 10^3/uL Mean Platelet Volume 8.4 6.9-10.8 fL Neutrophils (%) (Auto) 90.7 H 37.0-80.0 % Lymphocytes (%) (Auto) 5.5 L 10.0-50.0 % Monocytes (%) (Auto) 2.9 0.0-12.0 % Eosinophils (%) (Auto) 0.2 0.0-7.0 % Basophils (%) (Auto) 0.7 0.0-2.0 % Neutrophils # (Auto) 6.7 1.6-8.6 10 ^3/uL Lymphocytes # (Auto) 0.4 0.4-5.4 10 ^3/uL Monocytes # (Auto) 0.2 0-1.3 10 ^3/uL Eosinophils # (Auto) 0 0-0.8 10 ^3/uL Basophils # (Auto) 0.1 0-0.2 10 ^3/uL Nucleated Red Blood Cells 0.2 % Sodium Level 138 136-145 mmol/L Potassium Level 3.5 3.5-5.1 mmol/L Chloride Level 103 98-107 mmol/L Carbon Dioxide Level 26 20-31 mmol/L Anion Gap 9 5-15 Blood Urea Nitrogen 13 9-23 mg/dL Creatinine 1.04 H 0.550-1.02 mg/dL Glomerular Filtration Rate Calc 72 >90 mL/min BUN/Creatinine Ratio 12.5 10.0-20.0 Serum Glucose 131 H 74-106 mg/dL Calcium Level 9.1 8.7-10.4 mg/dL Total Bilirubin 1.5 H 0.2-1.0 mg/dL Aspartate Amino Transferase (AST) 20 13-40 U/L Alanine Aminotransferase (ALT) 25 7-40 U/L Alkaline Phosphatase 67 46-116 U/L B-Type Natriuretic Peptide 778.48 0-100 pg/mL Total Protein 6.9 5.7-8.2 g/dL Albumin 4.3 3.2-4.8 g/dL Assessment Hypertensive urgency Acute on chronic HFimEF, NYHA class II Rule out renal artery stenosis TIA Obesity Plan/Recommendation We will continue with following plan/recommendations (Dr. Shanks): * Transthoracic echocardiogram to evaluate cardiac function * Last echo on 09/03/23 reveals EF 60%, pervious echo 08/14/21 EF revealed 25- 30% * Aggressive blood pressure control * Renal ultrasound * Cardiac surveillance Case reviewed and discussed with . Thank you for allowing us to care for this patient. Please call with any questions or concerns. Critical care time spent: 42 minutes This medical document was created using an electronic medical record system with voice recognition software and computerized dictation system. Although this document has been carefully reviewed, there might still be some phonetic and typographical errors. Occasional wrong-word or ``sound-alike substitutions may have occurred due to the inherent limitations of voice recognition software. These areas are purely typographical due to imperfections of the software programs and do not reflect any compromise in the patient's medical care. Please read the chart carefully and recognize, using context, where these substitutions have occurred. Plan discussed with: Patient NYHA Physical activity limitations: Class2(Slight)fatigue,sob (palpitatns, angina w activityv) Date of Service: May 29, 2024 Billing Provider: TATI GILL Cardiology Common Codes: [id number] INP/OBS CARE (High) Cardiology Consultation Codes: [id number] CONSULT <45MIN TATI GILL May 29, 2024 15:29
[2024-05-29] MEDS ORDERED: hydrALAZINE HCL 20 MG/ML VL IV PRN (15:30)
[2024-05-29 21:00] VITALS: BP 160/102; PULSE 83; RESP 19; TEMP 98.2; O2SAT 98
[2024-05-29] MEDS ORDERED: METOPROLOL TARTRATE 50 MG TAB PO SCH (22:00)
[2024-05-29] MEDS: ARIPIPRAZOLE 5 MG PO SCH (22:00)
[2024-05-29] MEDS: ACETAMINOPHEN 325 MG TAB PO PRN (22:03)
[2024-05-29] MEDS: CARVEDILOL 3.125 MG TAB PO SCH (22:04)
[2024-05-29 23:57] VITALS: BP 160/102; PULSE 79; PULSE 83; RESP 18; RESP 20; TEMP 98.2; O2SAT 98; O2SAT 99
[2024-05-30] VITALS (8 sets, daily range): BP systolic 142–174; BP diastolic 11–113; PULSE 77–94; RESP 16–18; TEMP 97.7–98.9; O2SAT 95–100
[2024-05-30] MEDS: hydrALAZINE HCL 20 MG/ML VL IV PRN (01:12)
[2024-05-30 06:14] LABS: Basophils # (auto) 0 10 ^3/uL (0-0.2); Basophils % (auto) 0.4 % (0.0-2.0); Hemoglobin 9.1 g/dL (12.2-16.2); Lymphocytes # (auto) 1.6 10 ^3/uL (0.4-5.4); Monocytes # (auto) 1.1 10 ^3/uL (0-1.3); Neutrophils # (auto) 5.8 10 ^3/uL (1.6-8.6); White Blood Cell 8.7 10^3/uL (4.4-10.8)
[2024-05-30 06:18] LABS: Eosinophils # (auto) 0.1 10 ^3/uL (0-0.8); Eosinophils % (auto) 1.7 % (0.0-7.0); Lymphocytes % (auto) 18.8 % (10.0-50.0); Mean Corpuscular Hemoglobin 23.3 pg (28.0-32.0); Mean Corpuscular Hgb Conc. 31.3 g/dL (32.0-36.0); Mean Corpuscular Volume 74.4 fL (80.0-100.0); Monocytes % (auto) 12.9 % (0.0-12.0); Neutrophils % (auto) 66.2 % (37.0-80.0); Nucleated Red Blood Cells % 0.1 %; Platelet Count (auto) 305 10^3/uL (140-450)
[2024-05-30 06:27] LABS: Alanine Aminotransferase 20 U/L (7-40); Alkaline Phosphatase 55 U/L (46-116); Anion Gap 8 (5-15); BUN/Creatinine Ratio 14.2 (10.0-20.0); Blood Urea Nitrogen 16 mg/dL (9-23); Calcium 9.2 mg/dL (8.7-10.4); Carbon Dioxide 29 mmol/L (20-31); Chloride 104 mmol/L (98-107); Sodium 141 mmol/L (136-145)
[2024-05-30 06:29] LABS: Albumin 3.6 g/dL (3.2-4.8); Aspartate Aminotransferase 14 U/L (13-40)
[2024-05-30] MEDS ORDERED: ZOLP10TA PO (06:29)
[2024-05-30 06:30] LABS: Bilirubin, Total 0.9 mg/dL (0.2-1.0); Total Protein 5.9 g/dL (5.7-8.2)
[2024-05-30 06:35] LABS: Glucose 118 mg/dL (74-106); Potassium 3.3 mmol/L (3.5-5.1)
[2024-05-30] MEDS ORDERED: HYDR-3682 PO (07:05)
[2024-05-30] MEDS ORDERED: amLODIPine BESYLATE 5 MG TAB PO SCH (10:00)
[2024-05-30] MEDS: FUROSEMIDE 20 MG TAB PO SCH (10:00)
--- NOTE | 2024-05-30 10:03 | DVH ---
ULTRASOUND RENAL CLINICAL INDICATION: Renal artery stenosis TECHNIQUE: Real-time sonographic, duplex, and color Doppler images of the kidneys were obtained. FINDINGS: The right kidney measures 11 cm and is normal in size. The right renal echogenicity, contou r and cortical thickness are within normal limits. No hydronephrosis, large masses or perinephric flu id is seen. The left kidney measures 9 cm and is normal in size. The left renal echogenicity, contour, and cortic al thickness are within normal limits. No hydronephrosis, large masses or perinephric fluid is seen. IMPRESSION: Normal examination. [<reference, normal RI <.7>]
[2024-05-30] MEDS: ASPirin 81 mg TAB PO SCH (10:32)
[2024-05-30] MEDS: NIFEdipine ER 30 MG TAB PO SCH (10:37)
--- NOTE | 2024-05-30 12:10 | DVHPN2 ---
Reviewed: Care Plan, H&P, Labs, Medications, Previous Orders, Radiology Changes from previous H/P or p: No Changes Eyes: No Pain, No Vision change, No Conjunctivae inflammation, No Eyelid inflammation, No Other, No Redness ENT: No Ear pain, No Ear discharge, No Nose pain, No Nose discharge, No Nose congestion, No Mouth pain, No Mouth swelling, No Throat pain, No Throat swelling, No Other Cardiovascular: No Chest Pain, No Palpitations, No Orthopnea, No Paroxysmal Noc. Dyspnea; Edema (bilateral lower extremities); No Lt Headedness, No Other Respiratory: Cough; No Dry, No Shortness of breath, No SOB with excertion, No Wheezing, No Hemoptysis, No Pleuritic Pain; Sputum; No Other Gastrointestinal: Nausea; No Vomiting; Abdominal Pain; No Diarrhea, No Constipation, No Melena, No Hematochezia, No Other Genitourinary: No Dysuria, No Frequency, No Incontinence, No Hematuria, No Retention, No Other Musculoskeletal: No other, No neck pain, No shoulder pain, No arm pain, No back pain, No hand pain, No leg pain, No foot pain Skin: No Rash, No Lesions, No Jaundice, No Bruising, No Other Objective Vitals Vital Signs Date Time Temp Pulse Resp B/P (MAP) Pulse Ox O2 Delivery O2 Flow Rate FiO2 05/30/24 10:38 79 150/104 05/30/24 08:50 98.1 18 95 98.1 05/29/24 23:57 Room Air* 0 21 Intake/Output Intake and Output 05/30/24 07:00 Intake Total 100 ml Balance 100 ml Intake Oral 100 ml # Voids 1 Medications Current Medications Medications Dose Ordered Sig/Poli Route Start Time Stop Time Status Last Admin Dose Admin Sodium Chloride 10 ml Q8HR IV 05/29/24 14:00 05/30/24 06:00 10 ML Acetaminophen/ Hydrocodone Bitart 1 tab Q4HP PRN PO 05/29/24 12:30 Docusate Sodium 100 mg BIDPRN PRN PO 05/29/24 12:30 Acetaminophen 650 mg Q6HP PRN PO 05/29/24 12:30 05/29/24 22:03 650 MG Nitroglycerin 0.4 mg Q5MINP PRN SL 05/29/24 12:30 Morphine Sulfate 2 mg Q30M PRN IV 05/29/24 12:30 Patient Own Medication 5 mg BID PO 05/29/24 22:00 Aspirin 81 mg DAILY PO 05/30/24 10:00 05/30/24 10:32 81 MG Furosemide 20 mg DAILY PO 05/30/24 10:00 Nifedipine 60 mg DAILY PO 05/30/24 10:00 05/30/24 10:37 60 MG Carvedilol 3.125 mg Q12HR PO 05/29/24 22:00 05/30/24 10:38 3.125 MG Hydralazine HCl 10 mg Q6HP PRN IV 05/29/24 18:45 05/30/24 01:12 10 MG Laboratory Results Laboratory Tests 05/30/24 05:20 Chemistry Test 05/30/24 05:20 Albumin 3.6 g/dL (3.2-4.8) Calcium Level 9.2 mg/dL (8.7-10.4) Total Protein 5.9 g/dL (5.7-8.2) LFT Test 05/30/24 05:20 Alanine Aminotransferase (ALT) 20 U/L (7-40) Alkaline Phosphatase 55 U/L (46-116) Aspartate Amino Transferase (AST) 14 U/L (13-40) Total Bilirubin 0.9 mg/dL (0.2-1.0) HgA1c, TSH Test 05/29/24 14:11 Hemoglobin A1c 5.2 % A1C (<5.7) Urinalysis Test 05/29/24 09:15 Urine Color Light-yellow (Yellow) Urine Clarity Clear (Clear) Urine pH 7.0 (5.0-9.0) Urine Specific [place] 1.013 (1.001-1.035) Urine Protein Negative (Negative) Urine Ketones Negative (Negative) Urine Blood 2+ /uL (Negative) H Urine Nitrite Negative (Negative) Urine Bilirubin Negative (Negative) Urine Urobilinogen Normal mg/dL (Negative) Urine Leukocyte Esterase Negative /uL (Negative) Urine RBC 1 /hpf (0 - 4) Urine Microscopic WBC 2 /HPF (0-5) Urine Squamous Epithelial Cells Few /hpf (<5) Urine Bacteria None seen /hpf (None Seen) Urine Glucose Trace mg/dL (Normal) Labs and/or images reviewed: Labs reviewed by me, Image(s) reviewed by me Assessment/Plan Assessment/Plan Hypertensive urgency: BP 207/ 140 nifedipine Acute on chronic HFimEF, NYHA class II, Lasix Coreg: Ejection fraction 25 % 08/14/2021 Rule out renal artery stenosis, renal arterial ultrasound negative, chest x-ray negative TIA Obesity Noncompliance patient has not followed with tag clerk after discharge in 2021 Plan discussed with: Patient Date of Service: May 30, 2024 Billing Provider: SANDIP GUZMAN MD Common Visit Codes: [id number] INP/OBS CARE(HIGH) SANDIP GUZMAN MD May 30, 2024 12:10
--- NOTE | 2024-05-30 13:01 | DVHPN2 ---
Consult Progress Note Subjective Other Systems: Patient in normal sinus rhythm on space control supervisor Objective vital signs Vital Sign Date Time Temp Pulse Resp B/P (MAP) Pulse Ox O2 Delivery O2 Flow Rate FiO2 05/30/24 10:38 79 150/104 05/30/24 08:50 98.1 18 95 98.1 05/29/24 23:57 Room Air* 0 21 Total Intake and Output 05/29/24 05/29/24 05/30/24 15:00 23:00 07:00 Intake Total 100 ml Balance 100 ml medications Current Medications Medications Dose Ordered Sig/Poli Route Start Time Stop Time Status Last Admin Dose Admin Sodium Chloride 10 ml Q8HR IV 05/29/24 14:00 05/30/24 06:00 10 ML Acetaminophen/ Hydrocodone Bitart 1 tab Q4HP PRN PO 05/29/24 12:30 Docusate Sodium 100 mg BIDPRN PRN PO 05/29/24 12:30 Acetaminophen 650 mg Q6HP PRN PO 05/29/24 12:30 05/29/24 22:03 650 MG Nitroglycerin 0.4 mg Q5MINP PRN SL 05/29/24 12:30 Morphine Sulfate 2 mg Q30M PRN IV 05/29/24 12:30 Patient Own Medication 5 mg BID PO 05/29/24 22:00 Aspirin 81 mg DAILY PO 05/30/24 10:00 05/30/24 10:32 81 MG Furosemide 20 mg DAILY PO 05/30/24 10:00 Nifedipine 60 mg DAILY PO 05/30/24 10:00 05/30/24 10:37 60 MG Carvedilol 3.125 mg Q12HR PO 05/29/24 22:00 05/30/24 10:38 3.125 MG Hydralazine HCl 10 mg Q6HP PRN IV 05/29/24 18:45 05/30/24 01:12 10 MG Examination: GENERAL:Normal, LUNGS:Normal, CVS:Normal, NEURO:Normal laboratory and microbiology Laboratory Tests 05/30/24 05:20 Test 05/30/24 05:20 Range/Units Serum Glucose 118 H 74-106 mg/dL Problem List/Assessment/Plan Problem List/Assessment/Plan Hypertensive urgency Acute on chronic HFimEF, NYHA class II Ruled out renal artery stenosis TIA Obesity Medical noncompliance Plan/Recommendation (Dr. Shanks): * Transthoracic echocardiogram to evaluate cardiac function * Last echo on 09/03/23 reveals EF 60%, previous echo 08/14/21 EF revealed 25- 30% * Aggressive blood pressure control * Switch Amlodipine to Nifedipine * Switch metoprolol to carvedilol (up-titrate as tolerated) * Renal ultrasound: Negative for stenosis * Pending labs: Renin activity, aldosterone * Cardiac surveillance Case reviewed and discussed with . Thank you for allowing us to care for this patient. Please call with any questions or concerns. This medical document was created using an electronic medical record system with voice recognition software and computerized dictation system. Although this document has been carefully reviewed, there might still be some phonetic and typographical errors. Occasional wrong-word or ``sound-alike substitutions may have occurred due to the inherent limitations of voice recognition software. These areas are purely typographical due to imperfections of the software programs and do not reflect any compromise in the patient's medical care. Please read the chart carefully and recognize, using context, where these substitutions have occurred. Plan discussed with: Patient Date of Service: May 30, 2024 Billing Provider: TATI GILL Common Visit Codes: [id number] INP/OBS CARE(HIGH) TATI GILL May 30, 2024 13:01
[2024-05-30] MEDS: HYDROcodone-ACET 5/325MG TAB PO PRN (15:44)
[2024-05-30] MEDS: DOCUSATE SOD 100 MG CAP PO PRN (16:17)
[2024-05-30] MEDS ORDERED: VALA500T33 PO (18:04)
[2024-05-30] MEDS ORDERED: HYDR25TA4 PO (18:04)
[2024-05-30] MEDS: POTASSIUM EFFERVESENT TAB 25 MEQ PO ONE (18:14)
[2024-05-30] MEDS: NIFEdipine ER 30 MG TAB PO ONE (18:17)
--- NOTE | 2024-05-30 20:27 | DVHSR ---
APPROVED REPORT EXAM: Two-dimensional and M-mode echocardiogram with Doppler and color Doppler. Blood Pressure: 151/102 mmHg INDICATION Chest Pain Hyperensive emergency, CHF RISK FACTORS Height: 5'7, Weight: 176 DIMENSIONS LVDd4.5 (3.8-5.7cm)LA (2D)4.1 (1.9-4.0cm)Aortic Root3.2 (2.0-3.7cm) LVDs3.2 (2.5-4.0cm)LA (MM) (1.9-4.0cm)Aortic Cusp Exc2.1 (1.5-2.0cm) EF (%) 56.0 (55-70%)Rt. Atrium3.7 (1.9-4.0cm)Asc. Aorta3.0 cm IVSd1.1 (0.7-1.1cm)RV (D)3.4 (1.8-2.4cm) PWd1.2 (0.7-1.1cm) Mitral Valve MitralMitral Stenosis E wave1.20m/sMV Mean GR.mmHg A wave0.46m/sMV Peak GR.77mmHg E/A ratio2.62D MVAcm2 DECEL [id number] 1/2 Timems Aortic Valve Aortic ValveAortic Stenosis V10.93m/Romaine Mean GR.6mmHg V21.56m/Romaine Peak GR.10mmHg LVOT Diameter1.9 (1.8-2.4cm)Doppler AVA1.69cm2 Pulmonic Valve V21.11m/s Tricuspid Valve TR Velocity3.24m/s [id number] Conclusion Technically good study. Sinus rhythm. Left atrial enlargement. Concentric LVH. Valves appear to be structurally normal. Left ventricular function is preserved at 60% with normal RV function. Moderate tricuspid regurgitation. Pulmonary hypertension with RVSP of 50 mmHg. No pericardial effusion masses or vegetations.
[2024-05-31 01:00] VITALS: BP 141/95; PULSE 81; RESP 17; TEMP 98.2; O2SAT 100
[2024-05-31 05:00] VITALS: BP 145/99; PULSE 87; RESP 16; TEMP 98.4; O2SAT 97
[2024-05-31 08:06] VITALS: PULSE 79
[2024-05-31 09:00] VITALS: BP 136/101; PULSE 87; RESP 18; TEMP 97.5; O2SAT 96
[2024-05-31] MEDS: NIFEdipine ER 30 MG TAB PO SCH (10:06)
--- NOTE | 2024-05-31 10:50 | DVHPN2 ---
Reviewed: Care Plan, H&P, Labs, Medications, Previous Orders, Radiology Changes from previous H/P or p: No Changes Eyes: No Pain, No Vision change, No Conjunctivae inflammation, No Eyelid inflammation, No Other, No Redness ENT: No Ear pain, No Ear discharge, No Nose pain, No Nose discharge, No Nose congestion, No Mouth pain, No Mouth swelling, No Throat pain, No Throat swelling, No Other Cardiovascular: No Chest Pain, No Palpitations, No Orthopnea, No Paroxysmal Noc. Dyspnea; Edema (bilateral lower extremities); No Lt Headedness, No Other Respiratory: Cough; No Dry, No Shortness of breath, No SOB with excertion, No Wheezing, No Hemoptysis, No Pleuritic Pain; Sputum; No Other Gastrointestinal: Nausea; No Vomiting; Abdominal Pain; No Diarrhea, No Constipation, No Melena, No Hematochezia, No Other Genitourinary: No Dysuria, No Frequency, No Incontinence, No Hematuria, No Retention, No Other Musculoskeletal: No other, No neck pain, No shoulder pain, No arm pain, No back pain, No hand pain, No leg pain, No foot pain Skin: No Rash, No Lesions, No Jaundice, No Bruising, No Other Objective Vitals Vital Signs Date Time Temp Pulse Resp B/P (MAP) Pulse Ox O2 Delivery O2 Flow Rate FiO2 05/31/24 10:06 149/102 05/31/24 05:00 98.4 87 16 97 98.4 05/30/24 20:00 Room Air* 0 21 Intake/Output Intake and Output 05/31/24 07:00 Intake Total 1325 ml Balance 1325 ml Intake Oral 1325 ml # Voids 5 Medications Current Medications Medications Dose Ordered Sig/Poli Route Start Time Stop Time Status Last Admin Dose Admin Sodium Chloride 10 ml Q8HR IV 05/29/24 14:00 05/31/24 05:37 10 ML Acetaminophen/ Hydrocodone Bitart 1 tab Q4HP PRN PO 05/29/24 12:30 05/31/24 10:05 1 TAB Docusate Sodium 100 mg BIDPRN PRN PO 05/29/24 12:30 05/31/24 10:05 100 MG Acetaminophen 650 mg Q6HP PRN PO 05/29/24 12:30 05/29/24 22:03 650 MG Nitroglycerin 0.4 mg Q5MINP PRN SL 05/29/24 12:30 Morphine Sulfate 2 mg Q30M PRN IV 05/29/24 12:30 Patient Own Medication 5 mg BID PO 05/29/24 22:00 Aspirin 81 mg DAILY PO 05/30/24 10:00 05/31/24 10:07 81 MG Furosemide 20 mg DAILY PO 05/30/24 10:00 Carvedilol 3.125 mg Q12HR PO 05/29/24 22:00 05/30/24 21:16 3.125 MG Hydralazine HCl 10 mg Q6HP PRN IV 05/29/24 18:45 05/30/24 16:06 10 MG Nifedipine 90 mg DAILY PO 05/31/24 10:00 05/31/24 10:06 90 MG Laboratory Results Laboratory Tests 05/30/24 05:20 Urinalysis Test 05/29/24 09:15 Urine Color Light-yellow (Yellow) Urine Clarity Clear (Clear) Urine pH 7.0 (5.0-9.0) Urine Specific [place] 1.013 (1.001-1.035) Urine Protein Negative (Negative) Urine Ketones Negative (Negative) Urine Blood 2+ /uL (Negative) H Urine Nitrite Negative (Negative) Urine Bilirubin Negative (Negative) Urine Urobilinogen Normal mg/dL (Negative) Urine Leukocyte Esterase Negative /uL (Negative) Urine RBC 1 /hpf (0 - 4) Urine Microscopic WBC 2 /HPF (0-5) Urine Squamous Epithelial Cells Few /hpf (<5) Urine Bacteria None seen /hpf (None Seen) Urine Glucose Trace mg/dL (Normal) Labs and/or images reviewed: Labs reviewed by me, Image(s) reviewed by me Assessment/Plan Assessment/Plan Hypertensive urgency: BP 207/ 140 nifedipine Acute on chronic HFimEF, NYHA class II, Lasix Coreg: Ejection fraction 25 % 08/14/2021 Rule out renal artery stenosis, renal arterial ultrasound negative, chest x-ray negative TIA, renin and aldosterone levels pending Obesity Noncompliance 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
[2024-05-31] MEDS ORDERED: ASPI-628 PO (10:54)
[2024-05-31] MEDS ORDERED: CARV-214 PO (10:54)
[2024-05-31] MEDS ORDERED: NIFE1TAB30 PO (10:54)
--- NOTE | 2024-05-31 10:57 | DVHDS2 ---
Discharge Summary Date of Admission May 29, 2024 at 12:27 Date of Discharge: May 31, 2024 Admitting Diagnosis Elevated blood pressure Wounds: None Labs/Diagnostic Data: Laboratory Results Test 05/30/24 05:20 05/29/24 14:11 05/29/24 09:36 05/29/24 09:15 White Blood Count 8.7 10^3/uL (4.4-10.8) Red Blood Count 3.90 10^6/uL (4.0-5.20) Hemoglobin 9.1 g/dL (12.2-16.2) Hematocrit 29.0 % (36.0-46.0) Mean Corpuscular Volume 74.4 fL (80.0-100.0) Mean Corpuscular Hemoglobin 23.3 pg (28.0-32.0) Mean Corpuscular Hemoglobin Concent 31.3 g/dL (32.0-36.0) Red Cell Distribution Width 17.0 % (11.8-14.3) Platelet Count 305 10^3/uL (140-450) Mean Platelet Volume 8.0 fL (6.9-10.8) Neutrophils (%) (Auto) 66.2 % (37.0-80.0) Lymphocytes (%) (Auto) 18.8 % (10.0-50.0) Monocytes (%) (Auto) 12.9 % (0.0-12.0) Eosinophils (%) (Auto) 1.7 % (0.0-7.0) Basophils (%) (Auto) 0.4 % (0.0-2.0) Neutrophils # (Auto) 5.8 10 ^3/uL (1.6-8.6) Lymphocytes # (Auto) 1.6 10 ^3/uL (0.4-5.4) Monocytes # (Auto) 1.1 10 ^3/uL (0-1.3) Eosinophils # (Auto) 0.1 10 ^3/uL (0-0.8) Basophils # (Auto) 0 10 ^3/uL (0-0.2) Nucleated Red Blood Cells 0.1 % Sodium Level 141 mmol/L (136-145) Potassium Level 3.3 mmol/L (3.5-5.1) Chloride Level 104 mmol/L (98-107) Carbon Dioxide Level 29 mmol/L (20-31) Anion Gap 8 (5-15) Blood Urea Nitrogen 16 mg/dL (9-23) Creatinine 1.13 mg/dL (0.550-1.02) Glomerular Filtration Rate Calc 65 mL/min (>90) BUN/Creatinine Ratio 14.2 (10.0-20.0) Serum Glucose 118 mg/dL (74-106) Calcium Level 9.2 mg/dL (8.7-10.4) Total Bilirubin 0.9 mg/dL (0.2-1.0) Aspartate Amino Transferase (AST) 14 U/L (13-40) Alanine Aminotransferase (ALT) 20 U/L (7-40) Alkaline Phosphatase 55 U/L (46-116) Total Protein 5.9 g/dL (5.7-8.2) Albumin 3.6 g/dL (3.2-4.8) Hemoglobin A1c 5.2 % A1C (<5.7) Troponin I High Sensitivity 19 ng/L (</=34) Triglycerides Level 42 mg/dL (< 150) Cholesterol Level 120 mg/dL (< 200) LDL Cholesterol 81 mg/dL (< 100) HDL Cholesterol 33 mg/dL (40-59) Thyroid Stimulating Hormone (TSH) 1.56 uIU/mL (0.55-4.78) Urine Color Light-yellow (Yellow) Urine Clarity Clear (Clear) Urine pH 7.0 (5.0-9.0) Urine Specific [place] 1.013 (1.001-1.035) Urine Protein Negative (Negative) Urine Ketones Negative (Negative) Urine Blood 2+ /uL (Negative) Urine Nitrite Negative (Negative) Urine Bilirubin Negative (Negative) Urine Urobilinogen Normal mg/dL (Negative) Urine Leukocyte Esterase Negative /uL (Negative) Urine RBC 1 /hpf (0 - 4) Urine Microscopic WBC 2 /HPF (0-5) Urine Squamous Epithelial Cells Few /hpf (<5) Urine Bacteria None seen /hpf (None Seen) Urine Glucose Trace mg/dL (Normal) Test 05/29/24 08:36 B-Type Natriuretic Peptide 778.48 pg/mL (0-100) Other Laboratory Tests 05/30/24 05:20 Brief Hx & Hospital Course: 40-year-old female with a history of hypertension TIA congestive heart failure with the ejection fraction 25 percent 08/14/2021 noncompliant came in complaining of elevated blood pressure BP 0207/140 treated with the nifedipine uncontrolled renal arterial ultrasound negative for any renal artery stenosis levels of renal and aldosterone are pending. Patient feels better blood pressure is now controlled. Cleared for discharge by Cardiology prescription for aspirin Coreg and amlodipine transmitted to the pharmacy she was advised to follow up with the primary Dr Shanks for result of pending renin and aldosterone levels Consults/Reason for consult Cardiology consult by Dr. 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 Shanks in two weeks Medications: Aspirin Coreg Nifedipine transmitted to pharmacy 39 (Time taken for discharge summary 39 minutes) Discharge Statement: "Patient was advised to return to the ER or call 911 if any headaches, dizziness, shortness of breath, chest pain, abdominal pain, bleeding, fevers, or worsening of medical condition. Patient was counseled about treatment plan, medications, possible side effects, patientverbalized understanding. All questions were answered to the best of my ability. 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
--- NOTE | 2024-05-31 11:03 | DVHPN2 ---
Consult Progress Note Date Seen: May 31, 2024 Subjective Review of Systems: CVS:Normal, RESPIRATORY:Normal, NEURO:Normal Objective vital signs Vital Sign Date Time Temp Pulse Resp B/P (MAP) Pulse Ox O2 Delivery O2 Flow Rate FiO2 05/31/24 10:06 149/102 05/31/24 05:00 98.4 87 16 97 98.4 05/30/24 20:00 Room Air* 0 21 Total Intake and Output 05/30/24 05/30/24 05/31/24 15:00 23:00 07:00 Intake Total 955 ml 370 ml Balance 955 ml 370 ml medications Current Medications Medications Dose Ordered Sig/Poli Route Start Time Stop Time Status Last Admin Dose Admin Sodium Chloride 10 ml Q8HR IV 05/29/24 14:00 05/31/24 05:37 10 ML Acetaminophen/ Hydrocodone Bitart 1 tab Q4HP PRN PO 05/29/24 12:30 05/31/24 10:05 1 TAB Docusate Sodium 100 mg BIDPRN PRN PO 05/29/24 12:30 05/31/24 10:05 100 MG Acetaminophen 650 mg Q6HP PRN PO 05/29/24 12:30 05/29/24 22:03 650 MG Nitroglycerin 0.4 mg Q5MINP PRN SL 05/29/24 12:30 Morphine Sulfate 2 mg Q30M PRN IV 05/29/24 12:30 Patient Own Medication 5 mg BID PO 05/29/24 22:00 Aspirin 81 mg DAILY PO 05/30/24 10:00 05/31/24 10:07 81 MG Furosemide 20 mg DAILY PO 05/30/24 10:00 Carvedilol 3.125 mg Q12HR PO 05/29/24 22:00 05/30/24 21:16 3.125 MG Hydralazine HCl 10 mg Q6HP PRN IV 05/29/24 18:45 05/30/24 16:06 10 MG Nifedipine 90 mg DAILY PO 05/31/24 10:00 05/31/24 10:06 90 MG Examination: LUNGS:Normal, CVS:Normal, NEURO:Normal laboratory and microbiology Laboratory Tests 05/30/24 05:20 Test 05/30/24 05:20 Range/Units Serum Glucose 118 H 74-106 mg/dL Problem List/Assessment/Plan Problem List/Assessment/Plan Hypertensive urgency, resolved Chronic compensated HFimEF, NYHA class II Renal artery stenosis ruled out TIA Medical noncompliance Obesity Plan/Recommendation (Dr. Shanks) * Transthoracic echocardiogram revealed EF 60%. RVSP 50 mmHg * Aggressive blood pressure control: Niedipine, Coreg, * Renal ultrasound: Negative for stenosis * Pending labs: Renin activity, aldosterone * Cardiac surveillance Cardiac stable at this time. Uptitrate Coreg as necessary for a target SBP of 140 mmHg. Follow-up as outpatient on renin and aldosterone levels. There is no further cardiac work-up indicated at this time. Kindly call with any questions or concerns. Thank you for allowing us to care for this patient. This medical document was created using an electronic medical record system with voice recognition software and computerized dictation system. Although this document has been carefully reviewed, there might still be some phonetic and typographical errors. Occasional wrong-word or ``sound-alike substitutions may have occurred due to the inherent limitations of voice recognition software. These areas are purely typographical due to imperfections of the software programs and do not reflect any compromise in the patient's medical care. Please read the chart carefully and recognize, using context, where these substitutions have occurred. Plan discussed with: Patient, Other Date of Service: May 31, 2024 Billing Provider: MENDEL HERNANDEZ Cardiology Common Codes: [id number] INP/OBS CARE(Mod) MENDEL HERNANDEZ May 31, 2024 11:03
[2024-05-31 12:18] VITALS: BP 136/99; PULSE 77; RESP 18; TEMP 97.7; O2SAT 99
[2024-05-31 13:00] VITALS: BP 136/99; PULSE 77; RESP 18; TEMP 97.2; O2SAT 99
== END 2024-05-31 14:38 | disposition home or self-care (01) | DRG 291 ==
LOC: ER 08:16 → EDBD 08:16 → OVERFLOW 12:27 → TELE-EAST 23:08
PROVIDERS: ADMIT Family Medicine; ATTEND Family Medicine
DX: I11.0 Hypertensive heart disease with heart failure (principal); I50.23 Acute on chronic systolic (congestive) heart failure; I16.1 Hypertensive emergency; G45.9 Transient cerebral ischemic attack, unspecified; E66.9 Obesity, unspecified; R73.9 Hyperglycemia, unspecified; Z86.73 Personal history of transient ischemic attack (TIA), and cerebral infarction without residual deficits; Z83.3 Family history of diabetes mellitus; Z82.49 Family history of ischemic heart disease and other diseases of the circulatory system; Z91.199 Patient's noncompliance with other medical treatment and regimen due to unspecified reason; Z68.27 Body mass index [BMI] 27.0-27.9, adult; Z79.899 Other long term (current) drug therapy
CPT/HCPCS: 36415; 71045; 80053; 80061; 81001; 82088; 83036; 83880; 84244; 84443; 84484; 85025; 93005; 93306; 93975; 99291; G0378; J2405

== ENCOUNTER 2024-06-10 22:47 | Inpatient (IN) | payer BC, MEDICAID ==
[~2024-06-10] VITALS: Ht 175.3 cm; Wt 73.6 kg
[~2024-06-10 22:47] MED LIST changes: +ASPI-628 PO; -ASPI1TAB20 PO; +CARV-214 PO; +HYDR-3682 PO; +HYDR25TA4 PO; -LEVO500T31 PO; +NIFE1TAB30 PO; -NITR-87 PO; +VALA500T33 PO; +ZOLP10TA PO
[2024-06-10 23:35] VITALS: PULSE 99; RESP 17; O2SAT 100
[2024-06-10] MEDS: LABETALOL HCL 20 MG/4 ML VL IV ONE (23:49)
[2024-06-10 23:50] LABS: Urine Bacteria FEW /hpf (None Seen); Urine Blood Negative /uL (Negative); Urine Clarity Turbid (Clear); Urine Color Yellow (Yellow); Urine Mucus FEW (None Seen); Urine Protein, UAD 1+ (Negative); Urine Specific Gravity 1.028 (1.001-1.035); Urine Squamous Epithelial Cell MANY /hpf (<5); Urine Urobilinogen Normal (Negative); Urine WBC 4 /HPF (0-5); Urine pH 5.5 (5.0-9.0)
--- NOTE | 2024-06-10 23:53 | ED.PDOC ---
History of Present Illness HPI Comments 34 y/o F is BIBA with c/o HTN, headache, chest and abdominal pain, and dysuria, today. Per EMS report, patient endorses on burning dysuria symptom for the past 4x days, with additional unprovoked onset of remaining symptoms, yesterday, that have been ongoing since. She comments on head, chest, and abdominal pain being a 5/10 in severity. EMS noted on patient being found on scene with a blood glucose of 97, a pulse rate of 106, and blood pressure of 214/142, with all remaining vitals stable and within normal limits. En route, patient was given Zofran and Tylenol, with minimal improvement. Upon arrival to ED, patient is stated to be A&Ox4 at GCS15 and still hypertensive at 196/141. She has a reported history of anxiety, ASD, CHF w/left ventricular EF of 60% as of May 2024 w/LVH, pul HTN w/RVSP of 50ml, TIA, medication noncompliance, and obesity. Patient reports no nausea, vomiting, diarrhea, fever, chills, shortness of breath, or other associated symptoms or modifiers at this time. Spoke with mother, who has POA over the patient, [id number] regarding her condition. Mother reports on patient being without blood pressure medications following last discharge from [facility], due to insurance-related issue. Patient was also stated on wanting to kill/hurt herself to mother in private, lately, due to her father being hospitalized, currently. Chief Complaint: Headache Time Seen by MD: 23:00 Primary Care Provider: unknown Reviewed Notes: Nurses Notes, Correspondent Notes, Medications, Allergies Allergies: Coded Allergies: NO KNOWN ALLERGIES (Unverified , 08/31/21) Home Meds Active Scripts Aspirin (Aspirin Adult Low Dose) 81 Mg Tab, 81 MG PO DAILY, #90 TAB Prov:SANDIP GUZMAN MD 05/31/24 Carvedilol (COREG) 3.125 Mg Tab, 3.125 MG PO BID, #180 TAB Prov:SANDIP GUZMAN MD 05/31/24 Nifedipine (Nifedipine Er) 60 Mg Tab, 60 MG PO DAILY, #90 TAB Prov:SANDIP GUZMAN MD 05/31/24 Nifedipine (Nifedipine ER) 30 Mg Tab, 30 MG PO DAILY for 60 Days, #60 TAB Prov:THEE SANTIZO [employer] 09/04/23 Clonidine Hydrochloride (Clonidine Hcl) 0.2 Mg Tab, 1 TAB PO BID, #30 TAB 0 Refills Prov:LUIS ALBERTO MANN PAC 05/12/22 Amlodipine Besylate (NORVASC TABLET) 5 Mg Tb, 10 MG PO DAILY for 90 Days, #180 TAB Prov:THEE SANTIZO [employer] 02/28/22 Tramadol Hcl (Tramadol Hcl) 50 Mg Tab, 50 MG PO BID for 5 Days, #10 TAB Prov:JULIA SCHUMACHER MD 11/20/21 Metoclopramide Hcl (Reglan) 10 Mg Tab, 10 MG PO BID for 10 Days, #20 TAB Prov:JULIA SCHUMACHER MD 11/20/21 Dapagliflozin Propanediol (Farxiga) 10 Mg Tab, 10 MG PO DAILY for 30 Days, #30 TAB 3 Refills Prov:WILL ROWLAND MD 08/26/21 Acyclovir (Acyclovir) 400 Mg Tab, 400 MG PO TID for 7 Days, #21 TAB Prov:WILL ROWLAND MD 08/26/21 Sacubitril-Valsartan (Entresto 24-26 mg) 1 Tab Tab, 1 TAB PO BID for 30 Days, #60 TAB 3 Refills Prov:WILL ROWLAND MD 08/16/21 Hydralazine HCl (Hydralazine HCl) 25 Mg Tab, 50 MG PO TID for 30 Days, #90 TAB 3 Refills Prov:WILL ROWLAND MD 08/16/21 Aspirin (Aspirin Low Strength) 81 Mg Chw, 81 MG PO DAILY for 30 Days, #30 TAB.CHEW 2 Refills Prov:WILL ROWLAND MD 08/16/21 Hydralazine HCl (Hydralazine HCl) 25 Mg Tab, 25 MG PO BID for 60 Days, #120 TAB Prov:EMILIANO HARDWICK MD 01/22/19 Metoprolol Tartrate (LOPRESSOR TABLET) 50 Mg Tb, 50 MG PO BID for 60 Days, #120 TAB Prov:EMILIANO HARDWICK MD 01/22/19 Enalapril Maleate (Enalapril Maleate) 10 Mg Tab, 40 MG PO DAILY for 60 Days, #240 TAB Prov:EMILIANO HARDWICK MD 01/22/19 Reported Medications Hydrochlorothiazide (Hydrochlorothiazide) 25 Mg Tab, 50 MG PO, TAB 05/30/24 Valacyclovir Hcl (Valacyclovir Hcl) 500 Mg Tab, 500 MG PO, TAB 05/30/24 Hydroxyzine Hcl (Hydroxyzine Hcl) 25 Mg Tab, 25 MG PO TIDPRN for 30 Days, MG 05/30/24 Zolpidem Tartrate (Ambien) 10 Mg Tab, 5 MG PO HS, TAB 05/30/24 Aripiprazole (Abilify) 5 Mg Tab, 5 MG PO BID, TAB 02/27/22 Clonidine Hydrochloride (Clonidine Hcl) 0.1 Mg Tab 08/14/21 Information Source: Patient, Emergency Med Personnel Mode of Arrival: EMS Severity: Moderate Timing: Days Duration: Since onset Prehospital treatment: 12 Lead EKG, Accucheck, 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 Cardiac: HTN, chest pain. No palpitations. Lungs: No shortness of breath, no cough. GI: Abdominal pain. No nausea, no vomiting, no diarrhea, no constipation, no abdominal pain : dysuria, no frequency, no urgency. No hematuria. Musculoskeletal: No joint pain , no joint swelling, no extremity edema. Skin: No rash, no itching. Neuro: No headache, no dizziness, no weakness Vital Signs Vital Signs Date Time Temp Pulse Resp B/P (MAP) Pulse Ox O2 Delivery O2 Flow Rate FiO2 06/11/24 03:00 77 18 164/117 (133) 100 06/10/24 23:35 98.2 98.2 06/10/24 23:35 Room Air* 0 21 Physical Exam General: Awake, alert and oriented. No acute distress. Skin: Skin in warm, dry and intact. Appropriate color for ethnicity. HEENT: The head is normocephalic and atraumatic. Conjunctivae are clear without exudates or hemorrhage. Sclera is non-icteric. EOM are intact. No signs of nystagmus. Eyelids are normal in appearance without swelling or lesions. Oral mucosa is pink and moist Neck: The neck is supple with normal range of motion. No JVD. Cardiac: Heart rate and rhythm are normal. No murmurs, gallops, or rubs are auscultated. Respiratory: No signs of respiratory distress. Lung sounds are clear in all lobes bilaterally without rales, ronchi, or wheezes. Abdominal: Abdomen is soft, non-tender without distention. Bowel sounds are present and normoactive in all four quadrants. Extremities: Upper and lower extremities are atraumatic in appearance without deformity or edema. Neurological: The patient is awake, alert and oriented to person, place, and time with normal speech. Speech is clear. There is no facial asymmetry. Psychiatric: Appropriate mood and affect. Good judgement and insight. No visual or auditory hallucinations. Past Medical History PAST MEDICAL HISTORY: Anxiety, CHF, HTN, TIA Past Medical History (Other): ASD, medical noncompliance, obesity left vent ef 60% feb lvh pul HTN w/RVSP of 50ml August of 2021, left ventricular EF was 25% Surgical History: Denies all surgeries SENIOR SOURCING MANAGER History: No Pertinent SENIOR SOURCING MANAGER History Family History Family History: Reviewed,noncontributory to illness, Unknown Social History Smoker: Non-Smoker Alcohol: Denies ETOH Use Drugs: Denies Drug Use Lives In: Home Was a procedure done? Was a procedure done?: No Differential Dx Considerations may include: Differential diagnoses considered include acute ischemic coronary syndrome, aor tic dissection, cardiac tamponade, mediastinitis, pulmonary embolus, pneumothorax, tension pneumothorax, esophageal rupture, coronary artery vasospasm, myocarditis, pericarditis, pneumonia, pulmonary edema, esophageal tear, pancreatitis, aortic stenosis, dilated cardiomyopathy, hypertrophic cardiomyopathy, mitral valve prolapse, malignancy, pleuritis, pneumomediastinum, primary pulmonary hypertension, cholecystitis, esophageal spasm, esophagus, gastritis, GERD, peptic ulcer disease, costochondritis, fibromyalgia, rib fracture, herpes zoster, radicular syndromes, thoracic outlet syndrome, somatization. Differential diagnoses considered include: Abdominal aortic aneurysm, IA, esophageal rupture, intestinal obstruction, mesenteric ischemia, perforated viscus or solid organ rupture, CHF with hepatomegaly, pneumonia, abscess, appendicitis, biliary disease, diverticulitis, gastritis, lelia roenteritis, hepatitis, hernia, inflammatory bowel disease, pancreatitis, peptic ulcer disease, urinary tract infection, ureteral colic, constipation, GERD, irritable syndrome, abdominal wall pain, nonspecific abdominal pain, herpes zoster. [ ]Also ruptured ectopic , ovarian torsion/cyst, tubo-ovarian abscess, PID, endometriosis, mittleschmerz. Differential diagnoses considered include but are not limited to temporal arteritis, acute angle closure glaucoma, encephalitis, bacterial meningitis, carbon monoxide poisoning, posttraumatic headache, SAH, subdural hematoma, cervical artery dissection, venous sinus thrombosis, CVA, migraine headache, cluster headache, tension headache, TMJ disorder, frontal sinusitis, cervical spondylosis, intracranial mass, pituitary apoplexy. X-Ray, Labs, Meds, VS Vital Signs Date Time Temp Pulse Resp B/P (MAP) Pulse Ox O2 Delivery O2 Flow Rate FiO2 06/11/24 03:00 77 18 164/117 (133) 100 06/11/24 02:06 75 13 162/122 06/11/24 01:01 75 13 160/115 06/11/24 01:01 75 160/115 06/11/24 01:00 76 23 160/115 (130) 100 06/11/24 01:00 160/115 06/10/24 23:49 93 192/144 06/10/24 23:35 98.2 99 17 212/151 (171) 100 98.2 06/10/24 23:35 99 17 100 Room Air* 0 21 06/10/24 23:01 97.8 105 20 193/139 (157) 95 06/10/24 22:52 96 Lab Test 06/11/24 03:31 06/11/24 03:30 06/11/24 00:26 06/10/24 23:59 Range/Units Chlamydia species IgG Antibody Pending Sodium Level 139 140 136-145 mmol/L Potassium Level 3.6 3.6 3.5-5.1 mmol/L Chloride Level 104 107 98-107 mmol/L Carbon Dioxide Level 28 25 20-31 mmol/L Anion Gap 7 8 5-15 Blood Urea Nitrogen 17 15 9-23 mg/dL Creatinine 1.06 H 1.04 H 0.550-1.02 mg/dL Glomerular Filtration Rate Calc 71 72 >90 mL/min BUN/Creatinine Ratio 16.0 14.4 10.0-20.0 Serum Glucose 107 H 105 74-106 mg/dL Calcium Level 9.0 9.2 8.7-10.4 mg/dL Magnesium Level Pending 1.9 1.6-2.6 mg/dL D-Dimer, Quantitative 2.32 H 0.0-0.49 mg/L FEU Thyroid Stimulating Hormone (TSH) 1.73 0.55-4.78 uIU/mL HIV (1&2) Antibody Negative Negative White Blood Count 9.8 4.4-10.8 10^3/uL Red Blood Count 4.12 4.0-5.20 10^6/uL Hemoglobin 9.4 L 12.2-16.2 g/dL Hematocrit 30.1 L 36.0-46.0 % Mean Corpuscular Volume 73.2 L 80.0-100.0 fL Mean Corpuscular Hemoglobin 22.8 L 28.0-32.0 pg Mean Corpuscular Hemoglobin Concent 31.1 L 32.0-36.0 g/dL Red Cell Distribution Width 16.9 H 11.8-14.3 % Platelet Count 258 140-450 10^3/uL Mean Platelet Volume 8.2 6.9-10.8 fL Neutrophils (%) (Auto) 62.9 37.0-80.0 % Lymphocytes (%) (Auto) 20.8 10.0-50.0 % Monocytes (%) (Auto) 13.5 H 0.0-12.0 % Eosinophils (%) (Auto) 2.4 0.0-7.0 % Basophils (%) (Auto) 0.4 0.0-2.0 % Neutrophils # (Auto) 6.2 1.6-8.6 10 ^3/uL Lymphocytes # (Auto) 2.0 0.4-5.4 10 ^3/uL Monocytes # (Auto) 1.3 0-1.3 10 ^3/uL Eosinophils # (Auto) 0.2 0-0.8 10 ^3/uL Basophils # (Auto) 0 0-0.2 10 ^3/uL Nucleated Red Blood Cells 0.3 % Lactic Acid Level 1.2 0.4-2.0 mmol/L Total Bilirubin 0.9 0.2-1.0 mg/dL Aspartate Amino Transferase (AST) 21 13-40 U/L Alanine Aminotransferase (ALT) 25 7-40 U/L Alkaline Phosphatase 71 46-116 U/L Troponin I High Sensitivity 27 </=34 ng/L Total Protein 6.7 5.7-8.2 g/dL Albumin 4.1 3.2-4.8 g/dL Lipase 38 12-53 U/L Test 06/10/24 23:54 06/10/24 23:30 Range/Units Influenza Type A Antigen Negative Negative Influenza Type B Antigen Negative Negative SARS-CoV-2 Antigen (Rapid) Negative NEGATIVE Urine Color Yellow Yellow Urine Clarity Turbid H Clear Urine pH 5.5 5.0-9.0 Urine Specific [place] 1.028 1.001-1.035 Urine Protein 1+ H Negative Urine Ketones Negative Negative Urine Blood Negative Negative /uL Urine Nitrite Negative Negative Urine Bilirubin Negative Negative Urine Urobilinogen Normal Negative mg/dL Urine Leukocyte Esterase Negative Negative /uL Urine RBC 2 0 - 4 /hpf Urine Microscopic WBC 4 0-5 /HPF Urine Squamous Epithelial Cells Many <5 /hpf Urine Bacteria Few H None Seen /hpf Urine Mucus Few None Seen Urine Glucose Normal Normal mg/dL Urine Test Negative Negative Urine Opiates Screen Neg NEGATIVE Urine Fentanyl Screen Neg NEGATIVE Urine Barbiturates Screen Neg NEGATIVE Urine Phencyclidine Screen Neg NEGATIVE Urine Amphetamines Screen Neg NEGATIVE Urine Benzodiazepines Screen Neg NEGATIVE Urine Cocaine Screen Neg NEGATIVE Urine Cannabinoids Screen Neg NEGATIVE Chlamydia trachomatis (CLARE) Pending Neisseria gonorrhoeae (CLARE) Pending Current Medications Medications (Trade) Dose Ordered Sig/Poli Route Start Time Stop Time Status Last Admin Labetalol HCl (Labetalol HCl) 20 mg ONCE ONCE IV 06/10/24 23:45 06/10/24 23:46 DC 06/10/24 23:49 Nifedipine (Procardia Xl (Time-Release)) 60 mg ONCE ONCE PO 06/11/24 00:45 06/11/24 00:46 DC 06/11/24 01:00 Morphine Sulfate 4 mg ONCE ONCE IV 06/11/24 00:45 06/11/24 00:46 DC 06/11/24 01:01 Ondansetron HCl (Zofran) 4 mg ONCE ONCE IV 06/11/24 00:45 06/11/24 00:46 DC 06/11/24 01:[address] [address] Ph: [phone] DIAGNOSTIC IMAGING Diagnostic Imaging Report : [id number] Signed PATIENT: WILLIAN WILLAMS ACCT: [id number] UNIT: [id number] : 1990 LOC: ER ROOM / BED: / AGE / SEX: 34 / F ADM STATUS: REG ER SERVICE 2347 ORDERING PHYSICIAN: RACHELLE SILVA MD PROCEDURE(s): HWOCT - HEAD WITHOUT CONTRAST REASON: HTN ORDER NUMBER(s): [id number], ACCESSION NUMBER(s): [id number] CT BRAIN WITHOUT CONTRAST HISTORY: HTN TECHNIQUE: Axial scans were obtained from the skull base through the vertex without contrast. Sagittal and coronal reformats were generated. One or more of the following radiation dose reduction techniques were used for this examination: automated exposure control, adjustment of the mA and/or kV according to patient size, use of iterative reconstruction technique. COMPARISON: CT HEAD WITHOUT CONTRAST on DOS: 09/01/23 FINDINGS: Streak artifact somewhat limits evaluation, especially of the skull base and posterior fossa. As visualized, there is no definite acute intracranial hemorrhage or evidence of large vessel territorial infarction identified at this time. Patchy periventricular and subcortical white matter hypoattenuation is again noted. The visualized paranasal sinuses and mastoid air cells are clear. No grossly displaced calvarial fracture is identified. IMPRESSION: No acute intracranial hemorrhage or evidence of large vessel territorial infarction identified at this time. Patchy periventricular and subcortical white matter hypoattenuation is again noted. This is nonspecific but may be secondary to chronic microangiopathy. If there is persistent concern, especially for infarct, MRI should be obtained to further evaluate. ATED BY: LEV BAEZA MD DICTATED DATE/TIME: 06/11/241 SIGNED BY: LEV BAEZA MD SIGNED DATE/TIME: 06/11/24 0002 CC: [place] [id number] Ph: [phone] DIAGNOSTIC IMAGING Diagnostic Imaging Report : [id number] Signed PATIENT: WILLIAN WILLAMS ACCT: [id number] UNIT: [id number] : 1990 LOC: ER ROOM / BED: / AGE / SEX: 34 / F ADM STATUS: REG ER SERVICE 2323 ORDERING PHYSICIAN: RACHELLE SILVA MD PROCEDURE(s): CXR1 - CHEST XRAY 1 VIEW REASON: Chest pain ORDER NUMBER(s): [id number], ACCESSION NUMBER(s): [id number] CHEST RADIOGRAPH Indication: Chest pain Technique: Single frontal view of the chest was obtained Comparison: XY CHEST XRAY 1 VIEW on DOS: 05/29/24, XY CHEST XRAY 1 VIEW on DOS: 09/03/23, XY CHEST PORTABLE on DOS: 09/01/23 FINDINGS: Lines and Tubes: None Lungs: Clear Pleura: No effusion. No pneumothorax. Cardiomediastinal contours: Mild Cardiomegaly. Bones: Unremarkable IMPRESSION: Clear lungs. ATED BY: KARLA ODONNELL DO DICTATED DATE/TIME: 06/11/2423 SIGNED BY: KARLA ODONNELL DO SIGNED DATE/TIME: 06/11/2423 CC: [place] [id number] Ph: [phone] DIAGNOSTIC IMAGING Diagnostic Imaging Report : [id number] Signed PATIENT: WILLIAN WILLAMS ACCT: [id number] UNIT: [id number] : 1990 LOC: ER ROOM / BED: / AGE / SEX: 34 / F ADM STATUS: REG ER SERVICE 2323 ORDERING PHYSICIAN: RACHELLE SILVA MD PROCEDURE(s): ABPL - CT AB PEL WO CON-NO ORAL OR IV REASON: abdominal pain ORDER NUMBER(s): [id number], ACCESSION NUMBER(s): [id number] CT SCAN ABDOMEN AND PELVIS WITHOUT CONTRAST CLINICAL HISTORY: abdominal pain TECHNIQUE: Helical axial images are obtained from the lung bases through the pelvis without oral contrast. No intravenous contrast was administered. Coronal and sagittal reformatted images were generated from thin section reconstructions. One or more of the following radiation dose reduction techniques were used for this examination: automated exposure control, adjustment of the mA and/or kV according to patient size, use of iterative reconstruction technique. COMPARISON: CT CT AB PEL WO CON-NO ORAL OR IV on DOS: 09/01/23 FINDINGS: LOWER THORAX: Imaged lung bases are grossly clear. ABDOMEN AND PELVIS: Evaluation of visceral and vascular structures is limited due to lack of contrast administration. As visualized, the unenhanced liver, spleen, pancreas and adrenals appear grossly unremarkable. The gallbladder appears contracted. No sizable, radiopaque cholelithiasis. No hydroureteronephrosis or sizable, obstructing urinary tract calculi identif ied. No evidence of abdominal aortic aneurysm. No evidence of bowel obstruction. Normal caliber appendix. No free intraperiton eal air. No sizable bladder calculus. Trace pelvic free fluid is nonspecific and may be physiologic. No destructive osseous lesions identified. IMPRESSION: No bowel obstruction, free intraperitoneal air or sizable inflammatory collections identified on this noncontrast examination. ATED BY: LEV BAEZA MD DICTATED DATE/TIME: 06/11/2434 SIGNED BY: LEV BAEZA MD SIGNED DATE/TIME: 06/11/2434 CC: Time of 1ST Reevaluation: 05:10 Reevaluation 1ST: Improved Patient Education/Counseling: Treatment, Need For Follow Up Family Education/Counseling: No Family Present Departure 1 Departure Time of Disposition: 23:57 Impression: Primary Impression: Hypertensive urgency Additional Impressions: Chest pain Abdominal pain History of heart failure Disposition: ADMITTED INPATIENT Condition: Stable Comments Msigvz-vscm-sjsu-old female history of TIA, hypertension, congestive heart failure, PAST USE OF LIFE VEST presented to the emergency department with headache, chest pain, abdominal pain. Blood pressure on arrival was 196/141. Patient is started on labetalol for blood pressure control. PATIENT ADMITTED FOR FURTHER TREATMENT, EVALUATION AND MONITORING. Extensive evaluation was performed in attempt to identify or rule out: (See differential diagnosis section) The following tests were ordered, and results were reviewed by me: (See diagnostic results section) The following test were independently interpreted by me: N/A I reviewed and agreed with the following test results read by other providers: N/A I reviewed the following notes from the pt's past medical encounters: May for hypertensive emergency Additional information was gathered from interviewing the following independent historians: EMS PERSONNEL, Discussion of management or test interpretation with external physician/other qualified health child care attendant: N/A Addressed]an acute or chronic illness that poses a threat to life or bodily function: Hypertensive urgency Decision regarding hospitalization or escalation of hospital level of care: Risk and benefits of admission for further treatment of patient's condition was considered. Due to patient's current clinical condition, high risk of decline and poor outcome if discharged and need for further inpatient management and monitoring, patient will be admitted to the hospital. Drug therapy requiring intensive monitoring for toxicity: IV labetalol Parenteral controlled substances: N/A Decision regarding elective major surgery with identified patient or procedure risk factors: N/A Decision regarding emergency major surgery: N/A Decision not to resuscitate or to de-escalate care because of poor prognosis: N/A Diagnosis or treatment significantly limited by social determinants of health: N/A Critical Care Note Critical Care Time?: No Stability Stability form required: No Heart Score Heart Score: Heart Score Response (Comments) Value History N/A 0 EKG N/A 0 Age N/A 0 Risk Factors N/A 0 Troponin N/A 0 Total 0 I personally scribed for RACHELLE SILVA MD ([email or web address]) on 06/10/24 at 23:53. Electronically submitted by Linwood Rey ([email or web address]). I personally scribed for RACHELLE SILVA MD ([email or web address]) on 06/11/24 at 00:48. Electronically submitted by Linwood Rey ([email or web address]). RACHELLE SILVA MD Jun 10, 2024 23:53
--- NOTE | 2024-06-11 00:04 | DVH ---
CT BRAIN WITHOUT CONTRAST HISTORY: HTN TECHNIQUE: Axial scans were obtained from the skull base through the vertex without contrast. Sagitta l and coronal reformats were generated. One or more of the following radiation dose reduction techniq ues were used for this examination: automated exposure control, adjustment of the mA and/or kV accord ing to patient size, use of iterative reconstruction technique. COMPARISON: CT HEAD WITHOUT CONTRAST on DOS: 09/01/23 FINDINGS: Streak artifact somewhat limits evaluation, especially of the skull base and posterior fossa. As visu alized, there is no definite acute intracranial hemorrhage or evidence of large vessel territorial in farction identified at this time. Patchy periventricular and subcortical white matter hypoattenuation is again noted. The visualized paranasal sinuses and mastoid air cells are clear. No grossly displaced calvarial frac ture is identified. IMPRESSION: No acute intracranial hemorrhage or evidence of large vessel territorial infarction identified at thi s time. Patchy periventricular and subcortical white matter hypoattenuation is again noted. This is nonspecif ic but may be secondary to chronic microangiopathy. If there is persistent concern, especially for in farct, MRI should be obtained to further evaluate.
[2024-06-11] MEDS: IOHEXOL 350 MG/ML 100ML IJ ONE (00:24)
--- NOTE | 2024-06-11 00:27 | DVH ---
CHEST RADIOGRAPH Indication: Chest pain Technique: Single frontal view of the chest was obtained Comparison: XY CHEST XRAY 1 VIEW on DOS: 05/29/24, XY CHEST XRAY 1 VIEW on DOS: 09/03/23, XY CHEST KIRSTEN BLE on DOS: 09/01/23 FINDINGS: Lines and Tubes: None Lungs: Clear Pleura: No effusion. No pneumothorax. Cardiomediastinal contours: Mild Cardiomegaly. Bones: Unremarkable IMPRESSION: Clear lungs.
--- NOTE | 2024-06-11 00:28 | ECG ---
[facility] Test Date: 2024-06-10 Test Time: 22:52:14 Pat Name: WILLIAN WILLAMS Department: ER Room: 0281 Gender: F Assisted Living Executive Director: GHADA : 1990 Requested By: RACHELLE SILVA Order Number: [id number] Reading MD: Alex Shanks Measurements Intervals [place] Rate: 96 P: 58 WI: 181 QRS: 44 QRSD: 84 T: 76 QT: 395 QTc: 500 Interpretive Statements Sinus rhythm Biatrial enlargement Borderline T wave abnormalities Prolonged QT interval Electronically Signed On 06-15-2024 18:37:59 PDT by Alex Shanks Please click the below link to view image of tracing.
--- NOTE | 2024-06-11 00:38 | DVH ---
CT SCAN ABDOMEN AND PELVIS WITHOUT CONTRAST CLINICAL HISTORY: abdominal pain TECHNIQUE: Helical axial images are obtained from the lung bases through the pelvis without oral cont rast. No intravenous contrast was administered. Coronal and sagittal reformatted images were generate d from thin section reconstructions. One or more of the following radiation dose reduction techniques were used for this examination: automated exposure control, adjustment of the mA and/or kV according to patient size, use of iterative reconstruction technique. COMPARISON: CT CT AB PEL WO CON-NO ORAL OR IV on DOS: 09/01/23 FINDINGS: LOWER THORAX: Imaged lung bases are grossly clear. ABDOMEN AND PELVIS: Evaluation of visceral and vascular structures is limited due to lack of contrast administration. As visualized, the unenhanced liver, spleen, pancreas and adrenals appear grossly unremarkable. The g allbladder appears contracted. No sizable, radiopaque cholelithiasis. No hydroureteronephrosis or sizable, obstructing urinary tract calculi identified. No evidence of abdominal aortic aneurysm. No evidence of bowel obstruction. Normal caliber appendix. No free intraperitoneal air. No sizable bladder calculus. Trace pelvic free fluid is nonspecific and may be physiologic. No destructive osseous lesions identified. IMPRESSION: No bowel obstruction, free intraperitoneal air or sizable inflammatory collections identified on this noncontrast examination.
[2024-06-11 00:42] LABS: Alanine Aminotransferase 25 U/L (7-40); Albumin 4.1 g/dL (3.2-4.8); Alkaline Phosphatase 71 U/L (46-116); Anion Gap 8 (5-15); Aspartate Aminotransferase 21 U/L (13-40); BUN/Creatinine Ratio 14.4 (10.0-20.0); Blood Urea Nitrogen 15 mg/dL (9-23); Calcium 9.2 mg/dL (8.7-10.4); Carbon Dioxide 25 mmol/L (20-31); Chloride 107 mmol/L (98-107); Glucose 105 mg/dL (74-106); Lipase 38 U/L (12-53); Magnesium 1.9 mg/dL (1.6-2.6); Potassium 3.6 mmol/L (3.5-5.1); Sodium 140 mmol/L (136-145); Total Protein 6.7 g/dL (5.7-8.2)
[2024-06-11 00:43] LABS: Bilirubin, Total 0.9 mg/dL (0.2-1.0)
[2024-06-11 00:44] LABS: Basophils # (auto) 0 10 ^3/uL (0-0.2); Basophils % (auto) 0.4 % (0.0-2.0); Eosinophils # (auto) 0.2 10 ^3/uL (0-0.8); Eosinophils % (auto) 2.4 % (0.0-7.0); Hematocrit 30.1 % (36.0-46.0); Hemoglobin 9.4 g/dL (12.2-16.2); Lymphocytes % (auto) 20.8 % (10.0-50.0); Mean Corpuscular Hemoglobin 22.8 pg (28.0-32.0); Mean Corpuscular Hgb Conc. 31.1 g/dL (32.0-36.0); Mean Corpuscular Volume 73.2 fL (80.0-100.0); Monocytes # (auto) 1.3 10 ^3/uL (0-1.3); Monocytes % (auto) 13.5 % (0.0-12.0); Neutrophils # (auto) 6.2 10 ^3/uL (1.6-8.6); Neutrophils % (auto) 62.9 % (37.0-80.0); Nucleated Red Blood Cells % 0.3 %; Platelet Count (auto) 258 10^3/uL (140-450); Red Blood Cells 4.12 10^6/uL (4.0-5.20); Red Cell Distribution Width 16.9 % (11.8-14.3); White Blood Cell 9.8 10^3/uL (4.4-10.8)
[2024-06-11] MEDS: NIFEdipine ER 30 MG TAB PO ONE (01:00)
[2024-06-11] MEDS: ONDANSETRON HCL 4 MG/2 ML VIAL IV ONE (01:00)
[2024-06-11] MEDS: MORPHINE SULFATE INJ 2 MG/ml SYRG IV ONE (01:01)
[2024-06-11 01:04] LABS: COVID19 ANTIGEN SOFIA FIA NEGATIVE (NEGATIVE); Rapid Influenza A Negative (Negative); Rapid Influenza B Negative (Negative)
--- NOTE | 2024-06-11 02:58 | DVH ---
INDICATION: Chest pain, positive D-dimer TECHNIQUE: Multidetector CTA of the chest was performed of the chest with 100 cc of intravenous contr ast. PULMONARY ANGIOGRAPHY PROTOCOL was utilized using a bolus-tracking technique centered on the segun n pulmonary artery. Axial, coronal and sagittal multiplanar and MIP reformats were performed. Radiation Dose Information: CT Dose: CTDI volume is 18.85 mGy. Dose-length product is 649.41 mGy*cm The dose indicators for CT are the volume Computed Tomography (CT) Dose Index (CTDIvol) and the Dose Length Product (DLP), and are measured in units of mGy and mGy-cm, respectively. These indicators are not patient dose, but values generated from the CT scanner acquisition factors. The report includes radiation exposure data for exposures received during this examination. Comparison: Chest x-ray same day Findings: Evaluation of the pulmonary artery demonstrates no evidence of focal filling defect to suggest pulmon courtney embolus. No pericardial or pleural effusion. The thoracic aorta appears relatively normal in ericka mela and contour. There is cardiomegaly. No mediastinal or hilar adenopathy. Lungs appear relatively c lear. Visualized portions of the upper abdomen demonstrate hyperdensities within the stomach, as seen previ ously. No suspicious osseous lesion. IMPRESSION: No evidence of pulmonary embolism. Cardiomegaly.
--- NOTE | 2024-06-11 03:38 | DVHHPRES ---
History of Present Illness Resident Creating Document: CHIP BUCHANAN Reason for Visit: Abdominal pain History of Present Illness This is a 34-year-old female with a past medical history of abdominal pain, hypertensive urgency, and CHF who presented to the ED with the complaint of general left lower abdominal pain and generalized chest pain. According to the patient, she has been in her normal state of health until couple of days ago when she started having abdominal pain more so localized on the left side with no radiation. There is no aggravating or relieving factor. Pain has being consistent and persistent in the left lower quadrant. Patient denied any history of autoimmune disease such as Crohn's disease, hematochezia, or any peptic ulcer disease. In addition, the patient has an elevated blood pressure of 193/139. 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 Given the persistent nature of the abdominal pain, patient decided to come to the ED for with the evaluation. Of note, she was actually here a couple of weeks ago for similar symptoms. In the ED, her vitals are temperature 97.8, pulse 105, respiratory 20 and blood pressure 193/139--> 212/15. Patient received labetalol and later received Nifedipine. Her blood pressure at that the time of my evaluation was 166/117. Imaging so far head CT, chest x-ray and CT of the abdomen grossly unremarkable. Currently pending CT angiogram to rule out PE given the elevated D-dimer (2.32). Patient is sexually active with 1 partner. We want to rule out the possibility of PID or ovarian torsion. Therefore, will order PID work up and ultrasound to rule out any possibility of ovarian torsion. Cardiovascular: HTN GI: Constipation Past Surgical History: None Family History: None Smoke: No ALCOHOL: none Drugs: None Lives: with Family Review of Systems Constitutional: No: Fever, Chills, Sweats, Weakness, Malaise, Other Eyes: No: Pain, Vision change, Conjunctivae inflammation, Eyelid inflammation, Other, Redness ENT: No: Ear pain, Ear discharge, Nose pain, Nose discharge, Nose congestion, Mouth pain, Mouth swelling, Throat pain, Throat swelling, Other Respiratory: No: Cough, Dry, Shortness of breath, SOB with excertion, Wheezing, Hemoptysis, Pleuritic Pain, Sputum, Wheezing, Other Cardiovascular: Chest Pain Gastrointestinal: Abdominal Pain; No: Nausea, Vomiting, Diarrhea, Constipation, Melena, Hematochezia, Other Genitourinary: Dysuria, Frequency, Hematuria Musculoskeletal: No: other, neck pain, shoulder pain, arm pain, back pain, hand pain, leg pain, foot pain Skin: No: Rash, Lesions, Jaundice, Bruising, Other Neurological: No: Weakness, Numbness, Incoordination, Change in speech, Confusion, Seizures, Other Allergies: Coded Allergies: NO KNOWN ALLERGIES (Unverified , 08/31/21) Exam Vital Signs Vital Signs Date Time Temp Pulse Resp B/P (MAP) Pulse Ox O2 Delivery O2 Flow Rate FiO2 06/11/24 03:00 77 18 164/117 (133) 100 06/10/24 23:35 98.2 98.2 06/10/24 23:35 Room Air* 0 21 General Appearance: Alert, Oriented X3, moderate distress HEENT: Atraumatic, PERRLA, EOMI Respiratory: Clear to auscultation, Normal air movement Cardiovascular: Regular rate, Normal S1, Normal S2, No murmurs Abdominal: Other (tender on the left lower quadrant) Extremities: No clubbing, No cyanosis, No edema, Normal pulses Skin: No rashes, No significant lesion Neuro: Other (did not assess) Psych/Mental Status: Mental status NL, Mood NL Labs/Xrays Labs Test 06/11/24 00:26 06/10/24 23:59 06/10/24 23:54 06/10/24 23:30 Range/Units D-Dimer, Quantitative 2.32 H 0.0-0.49 mg/L FEU Thyroid Stimulating Hormone (TSH) 1.73 0.55-4.78 uIU/mL White Blood Count 9.8 4.4-10.8 10^3/uL Red Blood Count 4.12 4.0-5.20 10^6/uL Hemoglobin 9.4 L 12.2-16.2 g/dL Hematocrit 30.1 L 36.0-46.0 % Mean Corpuscular Volume 73.2 L 80.0-100.0 fL Mean Corpuscular Hemoglobin 22.8 L 28.0-32.0 pg Mean Corpuscular Hemoglobin Concent 31.1 L 32.0-36.0 g/dL Red Cell Distribution Width 16.9 H 11.8-14.3 % Platelet Count 258 140-450 10^3/uL Mean Platelet Volume 8.2 6.9-10.8 fL Neutrophils (%) (Auto) 62.9 37.0-80.0 % Lymphocytes (%) (Auto) 20.8 10.0-50.0 % Monocytes (%) (Auto) 13.5 H 0.0-12.0 % Eosinophils (%) (Auto) 2.4 0.0-7.0 % Basophils (%) (Auto) 0.4 0.0-2.0 % Neutrophils # (Auto) 6.2 1.6-8.6 10 ^3/uL Lymphocytes # (Auto) 2.0 0.4-5.4 10 ^3/uL Monocytes # (Auto) 1.3 0-1.3 10 ^3/uL Eosinophils # (Auto) 0.2 0-0.8 10 ^3/uL Basophils # (Auto) 0 0-0.2 10 ^3/uL Nucleated Red Blood Cells 0.3 % Sodium Level 140 136-145 mmol/L Potassium Level 3.6 3.5-5.1 mmol/L Chloride Level 107 98-107 mmol/L Carbon Dioxide Level 25 20-31 mmol/L Anion Gap 8 5-15 Blood Urea Nitrogen 15 9-23 mg/dL Creatinine 1.04 H 0.550-1.02 mg/dL Glomerular Filtration Rate Calc 72 >90 mL/min BUN/Creatinine Ratio 14.4 10.0-20.0 Serum Glucose 105 74-106 mg/dL Lactic Acid Level 1.2 0.4-2.0 mmol/L Calcium Level 9.2 8.7-10.4 mg/dL Magnesium Level 1.9 1.6-2.6 mg/dL Total Bilirubin 0.9 0.2-1.0 mg/dL Aspartate Amino Transferase (AST) 21 13-40 U/L Alanine Aminotransferase (ALT) 25 7-40 U/L Alkaline Phosphatase 71 46-116 U/L Troponin I High Sensitivity 27 </=34 ng/L Total Protein 6.7 5.7-8.2 g/dL Albumin 4.1 3.2-4.8 g/dL Lipase 38 12-53 U/L Influenza Type A Antigen Negative Negative Influenza Type B Antigen Negative Negative SARS-CoV-2 Antigen (Rapid) Negative NEGATIVE Urine Color Yellow Yellow Urine Clarity Turbid H Clear Urine pH 5.5 5.0-9.0 Urine Specific [place] 1.028 1.001-1.035 Urine Protein 1+ H Negative Urine Ketones Negative Negative Urine Blood Negative Negative /uL Urine Nitrite Negative Negative Urine Bilirubin Negative Negative Urine Urobilinogen Normal Negative mg/dL Urine Leukocyte Esterase Negative Negative /uL Urine RBC 2 0 - 4 /hpf Urine Microscopic WBC 4 0-5 /HPF Urine Squamous Epithelial Cells Many <5 /hpf Urine Bacteria Few H None Seen /hpf Urine Mucus Few None Seen Urine Glucose Normal Normal mg/dL Urine Test Negative Negative Assessment/Plan Assessment/Plan Left lower abdominal pain --> CT abdomen unremarkable --> rule out over pelvic inflammatory disease: chlamydia and gonorrhea urine amplification --> rule out of the eye torsion: Pelvic US Hypertensive urgency --> labetalol, nifedipine --> control pain --> Continue home medication Chronic HFrEF --> result echo 05/2024 EF: 60% --> Continue home medications ( Metoprolol, Entresto, hydrochlorothiazide) --> Consult Dr. Shanks Prolong QT interval --> QTc: 546 --> check magnesium --> consider putting the patient in telemetry Microcytic Anemia --> Hgb: 9.2 --> rule out GI bleed --> iron workup TIA Noncompliant Code status: full Goal of care discussed for more than 35 minutes, code status: full Case and plan discussed with Dr. Begum Plan discussed with: Patient My Orders Orders - CHIP BUCHANAN RESIDENT Procedure Category Date Status Time Urine Bacterial DANNY 06/11/24 Logged Culture 02:36 Chlamydia Igg Antibody LAB 06/11/24 Verified 03:16 Chlamydia/Gc LAB 06/11/24 Verified Amplification 03:16 Abdomen Complete US 06/11/24 Verified Sonogram 03:16 Hiv 1&2 Antibody LAB 06/11/24 Verified 03:16 Vdrl Serum W/Reflex LAB 06/11/24 Verified Titer 03:16 Date of Service: Jun 11, 2024 Billing Provider: DANIELLE BEGUM MD Common Visit Codes: [id number] INP/OBS CARE (HIGH) CHIP BUCHANAN RESIDENT Jun 11, 2024 03:38 DANIELLE BEGUM MD Jun 11, 2024 17:30
[2024-06-11 04:09] LABS: Amphetamine Screen, Urine Neg (NEGATIVE); Barbiturate Scree,Urine Neg (NEGATIVE); Benzodiazephine Screen, Urine Neg (NEGATIVE); Cannabinoid Screen, Urine Neg (NEGATIVE); Cocaine Screen, Urine Neg (NEGATIVE); Opiate Scree,Urine Neg (NEGATIVE); Phencyclidine Screen, Urine Neg (NEGATIVE)
[2024-06-11 04:13] LABS: Chloride 104 mmol/L (98-107); Potassium 3.6 mmol/L (3.5-5.1); Sodium 139 mmol/L (136-145)
[2024-06-11 04:15] LABS: Anion Gap 7 (5-15); Carbon Dioxide 28 mmol/L (20-31)
[2024-06-11] MEDS ORDERED: MORPHINE SULFATE INJ 2 MG/ml SYRG IV PRN (04:15)
[2024-06-11 04:20] LABS: Blood Urea Nitrogen 17 mg/dL (9-23)
[2024-06-11 04:25] LABS: Glucose 107 mg/dL (74-106)
[2024-06-11 06:00] LABS: Eosinophils # (auto) 0.2 10 ^3/uL (0-0.8); Eosinophils % (auto) 2.1 % (0.0-7.0); Hemoglobin 9.4 g/dL (12.2-16.2); Lymphocytes # (auto) 1.8 10 ^3/uL (0.4-5.4); Mean Corpuscular Volume 76.3 fL (80.0-100.0); Monocytes % (auto) 12.3 % (0.0-12.0); Neutrophils # (auto) 5.5 10 ^3/uL (1.6-8.6); Nucleated Red Blood Cells % 0.1 %
[2024-06-11] MEDS ORDERED: hydrALAZINE HCL 25 MG TAB PO SCH (06:00)
[2024-06-11 06:05] LABS: Basophils # (auto) 0 10 ^3/uL (0-0.2); Basophils % (auto) 0.5 % (0.0-2.0); Lymphocytes % (auto) 21.2 % (10.0-50.0); Mean Corpuscular Hemoglobin 23.1 pg (28.0-32.0); Mean Corpuscular Hgb Conc. 30.3 g/dL (32.0-36.0); Neutrophils % (auto) 63.9 % (37.0-80.0); Platelet Count (auto) 244 10^3/uL (140-450); Red Blood Cells 4.07 10^6/uL (4.0-5.20); Red Cell Distribution Width 17.5 % (11.8-14.3); White Blood Cell 8.5 10^3/uL (4.4-10.8)
[2024-06-11 06:15] LABS: Folate (Folic Acid) 10.89 ng/mL (>5.38)
[2024-06-11 06:16] LABS: Ferritin 20.2 ng/mL (10-291)
[2024-06-11 06:45] LABS: % Iron Saturation 4.9 % (15-50)
--- NOTE | 2024-06-11 07:41 | DVH ---
EXAM: US Abdomen Complete CLINICAL INDICATION: ABDOMINAL PAIN TECHNIQUE: Real-time ultrasound of the abdomen with image documentation. COMPARISON: ABPL on DOS: 09/07/21, ABPL on DOS: 08/13/21 FINDINGS: LIVER: Liver measures up to 14.6 cm. Hepatopetal flow in the main portal vein. No intrahepatic bi le duct dilation. GALLBLADDER: Gallbladder wall measures up to 0.51 cm thick this could be reactive changes to the as cites. Correlation with laboratory values for acute cholecystitis is recommended. Negative Lyons's sign was reported by the management lead. COMMON BILE DUCT: Unremarkable as visualized. No stones. No dilation. Common bile duct measures 0.56 cm in diameter. PANCREAS: Unremarkable as visualized. KIDNEYS: Left kidney measures up to 9.4 cm. No stones. No hydronephrosis. Right kidney measures 10.1 cm. SPLEEN: Spleen measures up to 9.1 cm. AORTA: Unremarkable. No aneurysm. INFERIOR VENA CAVA: Unremarkable. FREE FLUID: Trace ascites. OTHER FINDINGS: . . IMPRESSION: Gallbladder wall measures up to 0.51 cm thick. This could be reactive changes to the ascites. Correl ation with laboratory values for acute cholecystitis is recommended.
[2024-06-11 07:44] VITALS: PULSE 74; RESP 12; O2SAT 98
--- NOTE | 2024-06-11 07:44 | DVH ---
EXAM: US Pelvis Transabdominal and Transvaginal, Complete CLINICAL INDICATION: Rule out ovarion torsion TECHNIQUE: Real-time complete transabdominal and transvaginal pelvic ultrasound with image documenta tion. Transvaginal imaging was used for better evaluation of the endometrium and adnexa. COMPARISON: None FINDINGS: UTERUS/CERVIX: Unremarkable. No myometrial mass. The uterus measures 8.9 x 5.9 x 4.8 cm. The end ometrial stripe measures 0.5 cm in thickness. RIGHT OVARY: Right ovary contains multiple anechoic structures. Normal blood flow. The right ovar y measures 4.9 x 3.0 x 4.2 cm. LEFT OVARY: Unremarkable. Normal blood flow. The left ovary measures 3.7 x 1.8 x 2.6 cm. FREE FLUID: No free fluid. BLADDER: Unremarkable as visualized. Wall is normal thickness for degree of distention. OTHER FINDINGS: . IMPRESSION: Enlarged right ovary containing multiple cysts. Normal vascular flow still noted with Doppler interr ogation. However, early torsion can not be excluded.
[2024-06-11 09:02] LABS: Wright Stain Ready for Review
[2024-06-11] MEDS: ARIPIPRAZOLE 5 MG PO SCH (10:00)
[2024-06-11] MEDS ORDERED: CARVEDILOL 3.125 MG TAB PO SCH (10:00)
[2024-06-11] MEDS: SPIRONOLACTONE 25 MG TAB PO SCH (10:00)
[2024-06-11] MEDS ORDERED: hydroCHLOROthiazide 25 MG TAB PO SCH (10:00)
[2024-06-11] MEDS ORDERED: ASPirin-EC 81 mg tab PO SCH (10:00)
[2024-06-11] MEDS: SACUBITRIL-VALSARTAN 24mg/26mg TAB PO SCH (10:12)
[2024-06-11] MEDS: NIFEdipine ER 30 MG TAB PO SCH (10:13)
[2024-06-11] MEDS: EMPAGLIFLOZIN 10 MG TAB PO SCH (10:13)
[2024-06-11] MEDS: CARVEDILOL 12.5 MG TAB PO SCH (10:14)
[2024-06-11] MEDS: hydrALAZINE HCL 25 MG TAB PO SCH (10:15)
--- NOTE | 2024-06-11 10:18 | DVHINCON2 ---
MENDEL HERNANDEZ [facility] 06/11/24 1018: Date Seen: Jun 11, 2024 Referring Physician MD Cris Reason for Consultation Chest pain History of Present Illness This is a 34-year-old female who presented to the emergency room via EMS with a chief complaint of extreme MULTANI. The patient complains of headache associated with myalgia, anuria, and an associated SBP >200s mmHg. At time of assessment she denied any chest pain, diaphoresis, palpitations, SOB, dizziness, or syncopal events. Patient endorses she ran out of antihypertensive therapy approximately a week ago. Upon arrival to the emergency room she was found with an SBP up to 212 mmHg. She underwent a 12 lead electrocardiogram revealing a sinus rhythm suggestive of biatrial enlargement and a QTC at 500 ms. Baseline troponin level is negative. Significant past medical history includes congestive heart failure, hypertension, TIA, and obesity. Past Medical History Past medical history reviewed. No other significant than mentioned above. Past Surgical History Denies all surgeries. Family History: Diabetes mellitus G8 FATHER FH: congestive heart failure G8 MOTHER GRANDMOTHER Hypertension G8 MOTHER G8 FATHER GRANDMOTHER Family History Family history reviewed. Social History Denies the use of illicit drugs, alcohol, or tobacco use. Allergies: Coded Allergies: NO KNOWN ALLERGIES (Unverified , 08/31/21) Home Meds Active Scripts Aspirin (Aspirin Adult Low Dose) 81 Mg Tab, 81 MG PO DAILY, #90 TAB Prov:SANDIP GUZMAN MD 05/31/24 Carvedilol (COREG) 3.125 Mg Tab, 3.125 MG PO BID, #180 TAB Prov:SANDIP GUZMAN MD 05/31/24 Nifedipine (Nifedipine Er) 60 Mg Tab, 60 MG PO DAILY, #90 TAB Prov:SANDIP GUZMAN MD 05/31/24 Nifedipine (Nifedipine ER) 30 Mg Tab, 30 MG PO DAILY for 60 Days, #60 TAB Prov:THEE SANTIZO [employer] 09/04/23 Clonidine Hydrochloride (Clonidine Hcl) 0.2 Mg Tab, 1 TAB PO BID, #30 TAB 0 Refills Prov:LUIS ALBERTO MANN PAC 05/12/22 Amlodipine Besylate (NORVASC TABLET) 5 Mg Tb, 10 MG PO DAILY for 90 Days, #180 TAB Prov:THEE SANTIZO [employer]ISTER 11/28/22 Tramadol Hcl (Tramadol Hcl) 50 Mg Tab, 50 MG PO BID for 5 Days, #10 TAB Prov:JULIA SCHUMACHER MD 11/20/21 Metoclopramide Hcl (Reglan) 10 Mg Tab, 10 MG PO BID for 10 Days, #20 TAB Prov:JULIA SCHUMACHER MD 11/20/21 Dapagliflozin Propanediol (Farxiga) 10 Mg Tab, 10 MG PO DAILY for 30 Days, #30 TAB 3 Refills Prov:WILL ROWLAND MD 08/26/21 Acyclovir (Acyclovir) 400 Mg Tab, 400 MG PO TID for 7 Days, #21 TAB Prov:WILL ROWLAND MD 08/26/21 Sacubitril-Valsartan (Entresto 24-26 mg) 1 Tab Tab, 1 TAB PO BID for 30 Days, #60 TAB 3 Refills Prov:WILL ROWLAND MD 08/16/21 Hydralazine HCl (Hydralazine HCl) 25 Mg Tab, 50 MG PO TID for 30 Days, #90 TAB 3 Refills Prov:WILL ROWLAND MD 08/16/21 Aspirin (Aspirin Low Strength) 81 Mg Chw, 81 MG PO DAILY for 30 Days, #30 TAB.CHEW 2 Refills Prov:WILL ROWLAND MD 08/16/21 Hydralazine HCl (Hydralazine HCl) 25 Mg Tab, 25 MG PO BID for 60 Days, #120 TAB Prov:EMILIANO HARDWICK MD 01/22/19 Metoprolol Tartrate (LOPRESSOR TABLET) 50 Mg Tb, 50 MG PO BID for 60 Days, #120 TAB Prov:EMILIANO HARDWICK MD 01/22/19 Enalapril Maleate (Enalapril Maleate) 10 Mg Tab, 40 MG PO DAILY for 60 Days, #240 TAB Prov:EMILIANO HARDWICK MD 01/22/19 Reported Medications Hydrochlorothiazide (Hydrochlorothiazide) 25 Mg Tab, 50 MG PO, TAB 05/30/24 Valacyclovir Hcl (Valacyclovir Hcl) 500 Mg Tab, 500 MG PO, TAB 05/30/24 Hydroxyzine Hcl (Hydroxyzine Hcl) 25 Mg Tab, 25 MG PO TIDPRN for 30 Days, MG 05/30/24 Zolpidem Tartrate (Ambien) 10 Mg Tab, 5 MG PO HS, TAB 05/30/24 Aripiprazole (Abilify) 5 Mg Tab, 5 MG PO BID, TAB 02/27/22 Clonidine Hydrochloride (Clonidine Hcl) 0.1 Mg Tab 08/14/21 Home Meds Home medications reviewed. Current Medications Current Medications Medications (Trade) Dose Ordered Sig/Poli Route PRN Reason Start Time Stop Time Status Last Admin Aspirin (Ecotrin Enteric Coated Tablet) 81 mg DAILY PO 06/11/24 10:00 Hold Carvedilol (Coreg Tablet) 3.125 mg BID PO 06/11/24 10:00 06/11/24 08:23 DC Hydralazine HCl (Apresoline Tablet) 25 mg BID PO 06/11/24 10:00 Hydralazine HCl (Apresoline Tablet) 50 mg TID PO 06/11/24 06:00 06/11/24 04:17 DC Hydrochlorothiazide (hydroCHLOROthiazide TABLET) 50 mg DAILY PO 06/11/24 10:00 06/11/24 08:23 DC Sacubitril/ Valsartan (Entresto 24-26 Mg tab) 1 tab BID PO 06/11/24 10:00 Patient Own Medication 5 mg BID PO 06/11/24 10:00 Empaglifozin (Jardiance) 10 mg DAILY PO 06/11/24 10:00 Nifedipine (Procardia Xl (Time-Release)) 60 mg DAILY PO 06/11/24 10:00 Morphine Sulfate 2 mg Q30M PRN IV FOR CHEST PAIN 06/11/24 04:15 Carvedilol (Coreg Tablet) 12.5 mg BID PO 06/11/24 10:00 Spironolactone (Aldactone) 50 mg DAILY PO 06/11/24 08:30 06/11/24 10:00 Review of Systems Constitutional: No symptom reported Ears, Nose, & Throat: No symptom reported Eyes: No symptom reported Neurological: MULTANI Pulmonary/Respiratory: No symptom reported Cardiovascular: No symptom reported Gastrointestinal: No symptom reported Genitourinary: Anuria Musculoskeletal: Myalgia Skin: No symptom reported Psychiatric: No symptom reported Endocrine: No symptom reported Hemotologic/Lymphatic: No symptom reported Vital Signs Vital Signs Date Time Temp Pulse Resp B/P (MAP) Pulse Ox O2 Delivery O2 Flow Rate FiO2 06/11/24 05:03 79 26 154/107 (123) 100 06/10/24 23:35 98.2 98.2 06/10/24 23:35 Room Air* 0 21 Physical Exam General Appearance: Cooperative. Well developed. Well nourished. In no acute distress Head Exam: Normal inspection Neck Exam: Normal inspection. Non-tender. Normal alignment Pulmonary/Respiratory: Chest non-tender. Clear bilateral breath sounds Cardiovascular/Chest: Regular rate and rhythm. S1, S2. Sinus rhythm suggestive of TONYA. No murmurs. No JVD. Peripheral Pulses: 2+ Radial (R). 2+ Radial (L). 2+ Pedal (R). 2+ Pedal (L) Abdominal Exam: Normal bowel sounds. Soft. Nontender. No hepatospenomegaly. No masses Ankle Exam: Negative ankle edema Lower extremities: Negative lower extremity edema Neuro/Mental Status: A&O x4. Coherent Thoughts/Psych: Normal thought pattern. Appropriate mood and affect. Appearance: In no acute distress Skin Exam: Normal inspection. Normal color. Warm. Dry Labs/Diagnostic Data Labs Test 06/11/24 08:55 06/11/24 03:31 06/11/24 03:30 06/11/24 00:26 Range/Units Sodium Level 139 136-145 mmol/L Potassium Level 3.6 3.5-5.1 mmol/L Chloride Level 104 98-107 mmol/L Carbon Dioxide Level 28 20-31 mmol/L Anion Gap 7 5-15 Blood Urea Nitrogen 17 9-23 mg/dL Creatinine 1.06 H 0.550-1.02 mg/dL Glomerular Filtration Rate Calc 71 >90 mL/min BUN/Creatinine Ratio 16.0 10.0-20.0 Serum Glucose 107 H 74-106 mg/dL Calcium Level 9.0 8.7-10.4 mg/dL Magnesium Level 1.9 1.6-2.6 mg/dL White Blood Count 8.5 4.4-10.8 10^3/uL Red Blood Count 4.07 4.0-5.20 10^6/uL Hemoglobin 9.4 L 12.2-16.2 g/dL Hematocrit 31.0 L 36.0-46.0 % Mean Corpuscular Volume 76.3 #L 80.0-100.0 fL Mean Corpuscular Hemoglobin 23.1 L 28.0-32.0 pg Mean Corpuscular Hemoglobin Concent 30.3 L 32.0-36.0 g/dL Red Cell Distribution Width 17.5 H 11.8-14.3 % Platelet Count 244 140-450 10^3/uL Mean Platelet Volume 8.3 6.9-10.8 fL Neutrophils (%) (Auto) 63.9 37.0-80.0 % Lymphocytes (%) (Auto) 21.2 10.0-50.0 % Monocytes (%) (Auto) 12.3 H 0.0-12.0 % Eosinophils (%) (Auto) 2.1 0.0-7.0 % Basophils (%) (Auto) 0.5 0.0-2.0 % Neutrophils # (Auto) 5.5 1.6-8.6 10 ^3/uL Lymphocytes # (Auto) 1.8 0.4-5.4 10 ^3/uL Monocytes # (Auto) 1.0 0-1.3 10 ^3/uL Eosinophils # (Auto) 0.2 0-0.8 10 ^3/uL Basophils # (Auto) 0 0-0.2 10 ^3/uL Nucleated Red Blood Cells 0.1 % Reticulocyte Count (auto) 2.44 H 0.5-1.5 % D-Dimer, Quantitative 2.32 H 0.0-0.49 mg/L FEU Iron Level 17 L 50-170 ug/dL Total Iron Binding Capacity 344 250-425 ug/dL Percent Iron Saturation 4.9 L 15-50 % Ferritin 20.2 10-291 ng/mL Vitamin B12 Level 887 211-911 pg/mL Vitamin D 25-Hydroxy 17.3 L 30.0-100 ng/mL Folic Acid 10.89 >5.38 ng/mL Thyroid Stimulating Hormone (TSH) 1.73 0.55-4.78 uIU/mL HIV (1&2) Antibody Negative Negative Test 06/10/24 23:59 06/10/24 23:54 06/10/24 23:30 Range/Units Lactic Acid Level 1.2 0.4-2.0 mmol/L Total Bilirubin 0.9 0.2-1.0 mg/dL Aspartate Amino Transferase (AST) 21 13-40 U/L Alanine Aminotransferase (ALT) 25 7-40 U/L Alkaline Phosphatase 71 46-116 U/L Troponin I High Sensitivity 27 </=34 ng/L Total Protein 6.7 5.7-8.2 g/dL Albumin 4.1 3.2-4.8 g/dL Lipase 38 12-53 U/L Influenza Type A Antigen Negative Negative Influenza Type B Antigen Negative Negative SARS-CoV-2 Antigen (Rapid) Negative NEGATIVE Urine Color Yellow Yellow Urine Clarity Turbid H Clear Urine pH 5.5 5.0-9.0 Urine Specific [place] 1.028 1.001-1.035 Urine Protein 1+ H Negative Urine Ketones Negative Negative Urine Blood Negative Negative /uL Urine Nitrite Negative Negative Urine Bilirubin Negative Negative Urine Urobilinogen Normal Negative mg/dL Urine Leukocyte Esterase Negative Negative /uL Urine RBC 2 0 - 4 /hpf Urine Microscopic WBC 4 0-5 /HPF Urine Squamous Epithelial Cells Many <5 /hpf Urine Bacteria Few H None Seen /hpf Urine Mucus Few None Seen Urine Glucose Normal Normal mg/dL Urine Test Negative Negative Urine Opiates Screen Neg NEGATIVE Urine Fentanyl Screen Neg NEGATIVE Urine Barbiturates Screen Neg NEGATIVE Urine Phencyclidine Screen Neg NEGATIVE Urine Amphetamines Screen Neg NEGATIVE Urine Benzodiazepines Screen Neg NEGATIVE Urine Cocaine Screen Neg NEGATIVE Urine Cannabinoids Screen Neg NEGATIVE Assessment Hypertensive emergency, resolved Chronic compensated HFimEF Renal artery stenosis ruled out on 2024 Coronary artery disease ruled out on 2021 Hx of TIA Suboptimal medical therapy Medical noncompliance Obesity Plan/Recommendation (Dr. Quach) Case discussed in full detail and patient examined by Dr. Quach. Continue aggressive blood pressure control and up-titrate as necessary for a target SBP <140 mmHg. Currently on Coreg, Nifedipine, Entresto, and Spirolactone. Follow- up on renin and aldosterone levels, doubt primary hyperaldosteronism given potassium levels within normal limits. Strongly counseled on medical compliance and BP log at home. There is no further cardiac workup indicated at this time. Kindly call if in need to re-consult. Thank you for allowing us to participate in this patient's care. Please call if you have any questions or concerns. This medical document was created using an electronic medical record system with voice recognition software and computerized dictation system. Although this document has been carefully reviewed, there might still be some phonetic and typographical errors. Occasional wrong-word or ``sound-alike substitutions may have occurred due to the inherent limitations of voice recognition software. These areas are purely typographical due to imperfections of the software programs and do not reflect any compromise in the patient's medical care. Please read the chart carefully and recognize, using context, where these substitutions have occurred. Plan discussed with: Patient, Other NYHA Physical activity limitations: NA Date of Service: Jun 11, 2024 Billing Provider: MENDEL HERNANDEZ Cardiology Common Codes: [id number] INP/OBS CARE (High) JASPER QUACH MD 06/11/24 1241: Family History: Diabetes mellitus G8 FATHER FH: congestive heart failure G8 MOTHER GRANDMOTHER Hypertension G8 MOTHER G8 FATHER GRANDMOTHER Allergies: Coded Allergies: NO KNOWN ALLERGIES (Unverified , 08/31/21) Home Meds Active Scripts Aspirin (Aspirin Adult Low Dose) 81 Mg Tab, 81 MG PO DAILY, #90 TAB Prov:SANDIP GUZMAN MD 05/31/24 Carvedilol (COREG) 3.125 Mg Tab, 3.125 MG PO BID, #180 TAB Prov:SANDIP GUZMAN MD 05/31/24 Nifedipine (Nifedipine Er) 60 Mg Tab, 60 MG PO DAILY, #90 TAB Prov:SANDIP GUZMAN MD 05/31/24 Nifedipine (Nifedipine ER) 30 Mg Tab, 30 MG PO DAILY for 60 Days, #60 TAB Prov:THEE SANTIZO [employer] COUN[employer]ISTER 09/04/23 Clonidine Hydrochloride (Clonidine Hcl) 0.2 Mg Tab, 1 TAB PO BID, #30 TAB 0 Refills Prov:LUIS ALBERTO MANN PAC 05/12/22 Amlodipine Besylate (NORVASC TABLET) 5 Mg Tb, 10 MG PO DAILY for 90 Days, #180 T AB Prov:THEE SANTIZO [employer] COUN[employer]ISTER 02/28/22 Tramadol Hcl (Tramadol Hcl) 50 Mg Tab, 50 MG PO BID for 5 Days, #10 TAB Prov:JULIA SCHUMACHER MD 11/20/21 Metoclopramide Hcl (Reglan) 10 Mg Tab, 10 MG PO BID for 10 Days, #20 TAB Prov:JULIA SCHUMACHER MD 11/20/21 Dapagliflozin Propanediol (Farxiga) 10 Mg Tab, 10 MG PO DAILY for 30 Days, #30 TAB 3 Refills Prov:WILL ROWLAND MD 08/26/21 Acyclovir (Acyclovir) 400 Mg Tab, 400 MG PO TID for 7 Days, #21 TAB Prov:WILL ROWLAND MD 08/26/21 Sacubitril-Valsartan (Entresto 24-26 mg) 1 Tab Tab, 1 TAB PO BID for 30 Days, #60 TAB 3 Refills Prov:WILL ROWLAND MD 08/16/21 Hydralazine HCl (Hydralazine HCl) 25 Mg Tab, 50 MG PO TID for 30 Days, #90 TAB 3 Refills Prov:WILL ROWLAND MD 08/16/21 Aspirin (Aspirin Low Strength) 81 Mg Chw, 81 MG PO DAILY for 30 Days, #30 TAB.CHEW 2 Refills Prov:WILL ROWLAND MD 08/16/21 Hydralazine HCl (Hydralazine HCl) 25 Mg Tab, 25 MG PO BID for 60 Days, #120 TAB Prov:EMILIANO HARDWICK MD 01/22/19 Metoprolol Tartrate (LOPRESSOR TABLET) 50 Mg Tb, 50 MG PO BID for 60 Days, #120 TAB Prov:EMILIANO HARDWICK MD 01/22/19 Enalapril Maleate (Enalapril Maleate) 10 Mg Tab, 40 MG PO DAILY for 60 Days, #240 TAB Prov:EMILIANO HARDWICK MD 01/22/19 Reported Medications Hydrochlorothiazide (Hydrochlorothiazide) 25 Mg Tab, 50 MG PO, TAB 05/30/24 Valacyclovir Hcl (Valacyclovir Hcl) 500 Mg Tab, 500 MG PO, TAB 05/30/24 Hydroxyzine Hcl (Hydroxyzine Hcl) 25 Mg Tab, 25 MG PO TIDPRN for 30 Days, MG 05/30/24 Zolpidem Tartrate (Ambien) 10 Mg Tab, 5 MG PO HS, TAB 05/30/24 Aripiprazole (Abilify) 5 Mg Tab, 5 MG PO BID, TAB 02/27/22 Clonidine Hydrochloride (Clonidine Hcl) 0.1 Mg Tab 08/14/21 Plan/Recommendation 34-year-old female with known history of uncontrolled hypertension, reports not being able to get refills on her medications this past week. Also reports that she does not have access to a local outpatient care, medical insurance transfer pending. On admission systolic ranging 190-200, no chest pain or changes in vision or shortness of breath. All medications have been restarted. EKG sinus, heart rate 96, nonspecific ST changes, QTC 500. Although patient has uncontrolled hypertension likely is secondary to medication noncompliance, to complete secondary hypertension workup she has already completed screening renal artery arterial ultrasound as well as carotid. Check renin aldosterone, and metanephrines. We have optimized her BP medications to include spironolactone and carvedilol. Recommended patient to check blood pressure at home by going to the pharmacy to use free blood pressure cuff. Outpatient follow up and recheck QTC as well as review of prior EKGs. Date of Service: Jun 11, 2024 Billing Provider: JASPER QUACH MD Cardiology Common Codes: [id number] INP/OBS CARE (Mod) MENDEL HERNANDEZ [employer] Jun 11, 2024 10:18 JASPER QUACH MD Jun 11, 2024 12:41
[2024-06-11] MEDS: ERGOCALCIFEROL 50,000 UNIT(1.25MG) CAP PO SCH (14:09)
--- NOTE | 2024-06-11 14:49 | DVHPNRES ---
Progress Note Date Seen: Jun 11, 2024 Resident Creating Document: RADHA LORENZANA RESIDENT Medical Necessity Reason Pt with a Central, PICC or Fol: No Subjective Review of Systems Ms Avery is a 34-year-old female with past medical history of HTN, congestive heart failure presents to the ER with a chief complaint of abdominal pain for past 4 days, chest pain for 1 week. Patient reports muscle cramps like chest pain, which is diffuse, radiating to L arm, unrelated to exertion , not associated with dyspnea, palpitation, diaphoresis. She reports abdominal pain which is diffuse and located in lower abdomen, sharp in nature. Denies diarrhea, vomiting, nausea. Reports stress as her father recently had amputation. Bowel movement was 2 days back. Denies hematochezia or melena.. Associated features include insomnia, loss of appetite, but denies low mood, suicidal or homicidal ideations. Patient's blood pressure was 193/[address] was done which was unremarkable. CT abdomen was unremarkable. D-dimer was Elevated therefore CT angio completed which was unremarkable for PE. Pelvic ultrasound shows ovarian cyst. Past medical history: Hypertension, congestive heart failure Past surgical history: Unremarkable Social history: Smoking/drinking/drug use Patient seen and examined at the bedside. Cardiology consulted-started spironolactone and Coreg. Eval pending. Patient is medically stable for tele psych eval. Objective vital signs Vital Sign Date Time Temp Pulse Resp B/P (MAP) Pulse Ox O2 Delivery O2 Flow Rate FiO2 06/11/24 11:14 70 110/74 06/11/24 07:44 98.1 12 98 98.1 06/11/24 07:44 Room Air* 0 21 medications Current Medications Medications Dose Ordered Sig/Poli Route Start Time Stop Time Status Last Admin Dose Admin Aspirin 81 mg DAILY PO 06/11/24 10:00 Hold Hydralazine HCl 25 mg BID PO 06/11/24 10:00 06/11/24 10:15 25 MG Sacubitril/ Valsartan 1 tab BID PO 06/11/24 10:00 06/11/24 10:12 1 TAB Patient Own Medication 5 mg BID PO 06/11/24 10:00 Empaglifozin 10 mg DAILY PO 06/11/24 10:00 06/11/24 10:13 10 MG Nifedipine 60 mg DAILY PO 06/11/24 10:00 06/11/24 10:13 60 MG Morphine Sulfate 2 mg Q30M PRN IV 06/11/24 04:15 Carvedilol 12.5 mg BID PO 06/11/24 10:00 06/11/24 10:14 12.5 MG Spironolactone 50 mg DAILY PO 06/11/24 08:30 06/11/24 10:14 50 MG Ergocalciferol 50,000 unit Q7D PO 06/11/24 10:30 06/11/24 14:09 50,000 UNIT Examination Patient lying in bed, in no acute distress General: Well-built, afebrile, palor, mucosae are moist Cardiovascular: Regular S1 and S2. No murmurs, gallops or rubs. No JVD elevation. No pedal edema Respiratory: Normal B/L air entry on room air. Clear lung sounds on auscultation Abdomen: Soft, left lower quadrant tenderness, nondistended, normoactive bowel sounds, no rebound tenderness, no organomegaly, no masses Genitourinary: Deferred MSK/skin: Mobilizes 4 limbs. Skin is dry and warm Neurological: No motor, no sensitive deficits, normal speech. Pupils are isocoric and reactive. Psych/Mental Status: A/Ox3 laboratory and microbiology Laboratory Tests 06/11/24 03:30 06/11/24 00:26 Test 06/11/24 03:30 Range/Units Serum Glucose 107 H 74-106 mg/dL Labs and/or images reviewed: Labs reviewed by me, Image(s) reviewed by me Problem List/Assessment/Plan Problem List/Assessment/Plan Hypertensive emergency Chronic congestive heart failure Cardiology consulted-recommended Continue Coreg 12.5 mg b.i.d., nifedipine 60 mg daily, Jardiance 10 mg daily, started Entresto 24-26mg b.i.d., spironolactone 50 mg daily Follow up on renin aldosterone outpatient Received IV labetalol Abdominal pain, likely viral gastroenteritis CT abdomen unremarkable Abdominal ultrasound unremarkable Anemia, likely microcytic Iron panel suggestive of iron-deficiency anemia Stool occult pending Ruled out renal artery stenosis Duplex reviewed from 05/30/2024 was unremarkable Ruled out pulmonary embolism CT angio unremarkable for PE Ruled out significant CAD Questionable congestive heart failure Left heart catheterization 08/22 showed clean coronaries. Ventriculography in the CARRERA projection shows an EF of 30% with anterior hypokinesis, predominantly. Underlying global dysfunction. Echocardiogram 05/28 completed showed Left atrial enlargement. Concentric LVH. Valves appear to be structurally normal. Left ventricular function is preserved at 60% with normal RV function. Moderate tricuspid regurgitation. Pulmonary hypertension with RVSP of 50 mmHg. Right ovarian cysts Enlarged right ovary containing multiple cysts. Outpatient workup advised Medication noncompliance Counseled regarding importance of compliance Obesity Counseled regarding lifestyle measures Vitamin-D deficiency Replenished Likely major depressive disorder Tele psych consulted-patient is medically stable for tele psych consult Plan discussed with patient in which all questions have been answered Goals of care discussed with patient for more than 22 minutes, full code status Case discussed with Dr. Recio Plan discussed with: Patient My Orders My Orders Orders - RADHA LORENZANA Procedure Category Date Status Time Ergocalciferol PHA 06/11/24 In Process (Vitamin D 50,000 10:30 *Tele Psych Consult CONS 06/11/24 Transmitted 11:43 Date of Service: Jun 11, 2024 Billing Provider: JESSI RECIO MD Common Visit Codes: [id number] INP/OBS CARE(HIGH) RADHA LORENZANA Jun 11, 2024 14:49 JESSI RECIO MD Jun 11, 2024 22:43
[2024-06-11 20:00] VITALS: PULSE 75; PULSE 76; RESP 16; O2SAT 97
[2024-06-11 21:00] VITALS: BP 142/93; PULSE 75; RESP 20; TEMP 97.8; O2SAT 97
[2024-06-12] VITALS (8 sets, daily range): BP systolic 107–133; BP diastolic 71–89; PULSE 68–82; RESP 16–20; TEMP 97.8–98.3; O2SAT 92–100
[2024-06-12 06:19] LABS: Basophils # (auto) 0.1 10 ^3/uL (0-0.2); Basophils % (auto) 0.6 % (0.0-2.0); Eosinophils # (auto) 0.2 10 ^3/uL (0-0.8); Eosinophils % (auto) 2.9 % (0.0-7.0); Hematocrit 30.7 % (36.0-46.0); Hemoglobin 9.5 g/dL (12.2-16.2); Lymphocytes # (auto) 1.8 10 ^3/uL (0.4-5.4); Lymphocytes % (auto) 22.2 % (10.0-50.0); Mean Corpuscular Hemoglobin 22.7 pg (28.0-32.0); Mean Corpuscular Hgb Conc. 30.9 g/dL (32.0-36.0); Mean Corpuscular Volume 73.3 fL (80.0-100.0); Monocytes # (auto) 0.9 10 ^3/uL (0-1.3); Monocytes % (auto) 11.1 % (0.0-12.0); Neutrophils % (auto) 63.2 % (37.0-80.0); Platelet Count (auto) 279 10^3/uL (140-450); Red Blood Cells 4.18 10^6/uL (4.0-5.20); Red Cell Distribution Width 17.5 % (11.8-14.3); White Blood Cell 7.9 10^3/uL (4.4-10.8)
[2024-06-12 06:37] LABS: Alanine Aminotransferase 24 U/L (7-40); Albumin 3.7 g/dL (3.2-4.8); Alkaline Phosphatase 69 U/L (46-116); Anion Gap 9 (5-15); Aspartate Aminotransferase 18 U/L (13-40); BUN/Creatinine Ratio 9.3 (10.0-20.0); Carbon Dioxide 25 mmol/L (20-31); Chloride 105 mmol/L (98-107); Sodium 139 mmol/L (136-145); Total Protein 6.2 g/dL (5.7-8.2)
[2024-06-12 06:45] LABS: Blood Urea Nitrogen 9 mg/dL (9-23); Glucose 71 mg/dL (74-106); Potassium 3.4 mmol/L (3.5-5.1)
[2024-06-12] MEDS: ACETAMINOPHEN 325 MG TAB PO PRN (08:50)
[2024-06-12] MEDS: POTASSIUM EFFERVESENT TAB 25 MEQ PO ONE (09:05)
--- NOTE | 2024-06-12 13:44 | DVHINCON2 ---
Date of Service if different f: Jun 12, 2024 Consultation ([place]) Labs Laboratory Tests Test 06/10/24 23:30 06/10/24 23:54 06/10/24 23:59 06/11/24 00:26 Urine Color Yellow (Yellow) Urine Clarity Turbid (Clear) Urine pH 5.5 (5.0-9.0) Urine Specific Morgan 1.028 (1.001-1.035) Urine Protein 1+ (Negative) Urine Ketones Negative (Negative) Urine Blood Negative /uL (Negative) Urine Nitrite Negative (Negative) Urine Bilirubin Negative (Negative) Urine Urobilinogen Normal mg/dL (Negative) Urine Leukocyte Esterase Negative /uL (Negative) Urine RBC 2 /hpf (0 - 4) Urine Microscopic WBC 4 /HPF (0-5) Urine Squamous Epithelial Cells Many /hpf (<5) Urine Bacteria Few /hpf (None Seen) Urine Mucus Few (None Seen) Urine Glucose Normal mg/dL (Normal) Urine Test Negative (Negative) Urine Opiates Screen Neg (NEGATIVE) Urine Fentanyl Screen Neg (NEGATIVE) Urine Barbiturates Screen Neg (NEGATIVE) Urine Phencyclidine Screen Neg (NEGATIVE) Urine Amphetamines Screen Neg (NEGATIVE) Urine Benzodiazepines Screen Neg (NEGATIVE) Urine Cocaine Screen Neg (NEGATIVE) Urine Cannabinoids Screen Neg (NEGATIVE) Influenza Type A Antigen Negative (Negative) Influenza Type B Antigen Negative (Negative) SARS-CoV-2 Antigen (Rapid) Negative (NEGATIVE) Lactic Acid Level 1.2 mmol/L (0.4-2.0) Troponin I High Sensitivity 27 ng/L (</=34) Lipase 38 U/L (12-53) Reticulocyte Count (auto) 2.44 % (0.5-1.5) D-Dimer, Quantitative 2.32 mg/L FEU (0.0-0.49) Iron Level 17 ug/dL (50-170) Total Iron Binding Capacity 344 ug/dL (250-425) Percent Iron Saturation 4.9 % (15-50) Ferritin 20.2 ng/mL (10-291) Vitamin B12 Level 887 pg/mL (211-911) Vitamin D 25-Hydroxy 17.3 ng/mL (30.0-100) Folic Acid (LAB) 10.89 ng/mL (>5.38) Thyroid Stimulating Hormone (TSH) 1.73 uIU/mL (0.55-4.78) HIV (1&2) Antibody Negative (Negative) Test 06/11/24 03:31 06/11/24 08:55 06/12/24 05:02 06/12/24 10:00 Haptoglobin 47 mg/dL (33-278) White Blood Count 7.9 10^3/uL (4.4-10.8) Red Blood Count 4.18 10^6/uL (4.0-5.20) Hemoglobin 9.5 g/dL (12.2-16.2) Hematocrit 30.7 % (36.0-46.0) Mean Corpuscular Volume 73.3 fL (80.0-100.0) Mean Corpuscular Hemoglobin 22.7 pg (28.0-32.0) Mean Corpuscular Hemoglobin Concent 30.9 g/dL (32.0-36.0) Red Cell Distribution Width 17.5 % (11.8-14.3) Platelet Count 279 10^3/uL (140-450) Mean Platelet Volume 8.0 fL (6.9-10.8) Neutrophils (%) (Auto) 63.2 % (37.0-80.0) Lymphocytes (%) (Auto) 22.2 % (10.0-50.0) Monocytes (%) (Auto) 11.1 % (0.0-12.0) Eosinophils (%) (Auto) 2.9 % (0.0-7.0) Basophils (%) (Auto) 0.6 % (0.0-2.0) Neutrophils # (Auto) 5.0 10 ^3/uL (1.6-8.6) Lymphocytes # (Auto) 1.8 10 ^3/uL (0.4-5.4) Monocytes # (Auto) 0.9 10 ^3/uL (0-1.3) Eosinophils # (Auto) 0.2 10 ^3/uL (0-0.8) Basophils # (Auto) 0.1 10 ^3/uL (0-0.2) Nucleated Red Blood Cells 0.0 % Sodium Level 139 mmol/L (136-145) Potassium Level 3.4 mmol/L (3.5-5.1) Chloride Level 105 mmol/L (98-107) Carbon Dioxide Level 25 mmol/L (20-31) Anion Gap 9 (5-15) Blood Urea Nitrogen 9 mg/dL (9-23) Creatinine 0.97 mg/dL (0.550-1.02) Glomerular Filtration Rate Calc 79 mL/min (>90) BUN/Creatinine Ratio 9.3 (10.0-20.0) Serum Glucose 71 mg/dL (74-106) Calcium Level 9.0 mg/dL (8.7-10.4) Magnesium Level 2.0 mg/dL (1.6-2.6) Total Bilirubin 1.0 mg/dL (0.2-1.0) Aspartate Amino Transf (AST/SGOT) 18 U/L (13-40) Alanine Aminotransferase (ALT/SGPT) 24 U/L (7-40) Alkaline Phosphatase 69 U/L (46-116) Total Protein 6.2 g/dL (5.7-8.2) Albumin 3.7 g/dL (3.2-4.8) Stool Occult Blood Negative (Negative) Stool Occult Blood Sample #3 (Negative) Stool for White Cells Few Microbiology Date/Time Source Procedure Growth Status 06/10/24 23:30 Voided Urine Urine Culture - Preliminary Resulted Appetite: Fair Appearance: Stated age, Disheveled Psychomotor activity: WNL Behavioral: Cooperative Eye contact: Limited Speech: WNL Affect: Mood Congruent Mood: Depressed Thought processes: Linear/Goal-directed Thought content: WNL Suicidal ideations: Present (passive) Homicidal ideations: Absent Orientation: Person, Place, Time, Situation Memory intact: Recent Intellect: Average Abstractability: WNL Concentration: Adequate Attention: Adequate Judgement: WNL Insight: Fair Vitals Vital Signs Date Time Temp Pulse Resp B/P (MAP) Pulse Ox O2 Delivery O2 Flow Rate FiO2 06/12/24 08:52 133/89 06/12/24 08:50 74 06/12/24 08:30 97.9 16 100 97.9 06/12/24 08:00 Room Air* 0 21 Current medications Current Medications Medications Dose Ordered Sig/Poli Route Start Time Stop Time Status Last Admin Dose Admin Aspirin 81 mg DAILY PO 06/11/24 10:00 Hold Hydralazine HCl 25 mg BID PO 06/11/24 10:00 06/12/24 08:51 25 MG Sacubitril/ Valsartan 1 tab BID PO 06/11/24 10:00 06/12/24 08:50 1 TAB Patient Own Medication 5 mg BID PO 06/11/24 10:00 Empaglifozin 10 mg DAILY PO 06/11/24 10:00 06/12/24 08:51 10 MG Nifedipine 60 mg DAILY PO 06/11/24 10:00 06/12/24 08:52 60 MG Morphine Sulfate 2 mg Q30M PRN IV 06/11/24 04:15 Carvedilol 12.5 mg BID PO 06/11/24 10:00 06/12/24 08:50 12.5 MG Spironolactone 50 mg DAILY PO 06/11/24 08:30 06/12/24 08:52 50 MG Ergocalciferol 50,000 unit Q7D PO 06/11/24 10:30 06/11/24 14:09 50,000 UNIT Acetaminophen 650 mg Q6HP PRN PO 06/12/24 08:00 06/12/24 08:50 650 MG Medication adjusted: Yes Diagnosis: unspecified mood disorder r/o bipolar disorder, ASD Plan : This is a 34-year-old female with hx of mood symptoms, currently reporting depression with passive suicidal thoughts. She denies plan but would benefit from voluntary inpatient psych transfer for stabilization. patient agrees with this plan Recommend to restart seroquel 50 po qhs Please contact psychiatry if patient refuses transfer to psychiatric facility or no available beds. History of Present Illness Reason for Consult : History of depression and medication management HPI : This is a 34-year-old female with prior hx of bipolar disorder and ASD presented here for hypertensive urgency. Patient is evaluated via telepsychiatry. She reports depressive symptoms, low moods, feeling hopeless, insomnia, poor appetite. She does report stressors with health problems and father's health issues. She reports wanting to get help because "you never know" " better safe than sorry" She reports past suicide attempts. She reports having suicidal thoughts which have increased recently, but she denies any plan or intent. She reports wanting to go to psychiatric facility so she can be monitored. She denies homicidal ideation. She denies prior psychotic symptoms. She presently denies auditory/visual hallucinations or paranoid thoughts Past Psychiatric History : She reports one prior psychiatric admission around 2012. She had two prior suicide attempt with OD on pills and cutting her wrist also last or around 2012. She denies any current outpatient mental outpatient follow up. She reports history of Seroquel, Abilify and Trazodone use, also last used over 10 years ago. She reports prior diagnosis of depression, bipolar and and ASD. Past Medical History : She reports hx of HTN Social History : She lives with her mother. She is not and unemployed. She has a 15-year-old daughter also living with her. She denies any substance use, including alcohol, marijuana or nicotine use. She reports paternal aunt w ith schizophrenia. Patient's daughter also has Autism. ANEESH LAWLER [facility] Jun 12, 2024 13:44
--- NOTE | 2024-06-12 14:36 | DVHPNRES ---
Progress Note Date Seen: Jun 12, 2024 Resident Creating Document: RADHA LORENZANA RESIDENT Medical Necessity Reason Pt with a Central, PICC or Fol: No Subjective Review of Systems Ms Avery is a 34-year-old female with past medical history of HTN, congestive heart failure presents to the ER with a chief complaint of abdominal pain for past 4 days, chest pain for 1 week. Patient reports muscle cramps like chest pain, which is diffuse, radiating to L arm, unrelated to exertion , not associated with dyspnea, palpitation, diaphoresis. She reports abdominal pain which is diffuse and located in lower abdomen, sharp in nature. Denies diarrhea, vomiting, nausea. Reports stress as her father recently had amputation. Bowel movement was 2 days back. Denies hematochezia or melena.. Associated features include insomnia, loss of appetite, but denies low mood, suicidal or homicidal ideations. Patient's blood pressure was 193/[address] was done which was unremarkable. CT abdomen was unremarkable. D-dimer was Elevated therefore CT angio completed which was unremarkable for PE. Pelvic ultrasound shows ovarian cyst. Past medical history: Hypertension, congestive heart failure Past surgical history: Unremarkable Past Psychiatric History : She reports one prior psychiatric admission around 2012. She had two prior suicide attempt with OD on pills and cutting her wrist also last or around 2012. She denies any current outpatient mental outpatient follow up. She reports history of Seroquel, Abilify and Trazodone use, also last used over 10 years ago. She reports prior diagnosis of depression, bipolar and and ASD. Social history: Smoking/drinking/drug use 06/11 - Patient seen and examined at the bedside. Cardiology consulted-started spironolactone and Coreg. Eval pending. Patient is medically stable for tele psych eval. 06/12-patient seen and examined at bedside. She reports feeling sad and suicidal, says that it would been better if she is not there, denies active plans for now. Her father recently had amputation bilateral stressed about that. Per patient's mother, she had also stressful relationship. Patient lives with her mom and has a daughter and sister who supports her. Sitter 24/10. Tele psych eval done, recommendations - She denies plan but would benefit from voluntary inpatient psych transfer for stabilization. patient agrees with this plan. Recommend to restart seroquel 50 po qhs Stool occult is negative, hemoglobin stable, diet changed to cardiac Objective vital signs Vital Sign Date Time Temp Pulse Resp B/P (MAP) Pulse Ox O2 Delivery O2 Flow Rate FiO2 06/12/24 08:52 133/89 06/12/24 08:50 74 06/12/24 08:30 97.9 16 100 97.9 06/12/24 08:00 Room Air* 0 21 Total Intake and Output 06/11/24 06/11/24 06/12/24 15:00 23:00 07:00 Intake Total 200 ml Output Total 800 ml Balance -600 ml medications Current Medications Medications Dose Ordered Sig/Poli Route Start Time Stop Time Status Last Admin Dose Admin Aspirin 81 mg DAILY PO 06/11/24 10:00 Hold Hydralazine HCl 25 mg BID PO 06/11/24 10:00 06/12/24 08:51 25 MG Sacubitril/ Valsartan 1 tab BID PO 06/11/24 10:00 06/12/24 08:50 1 TAB Patient Own Medication 5 mg BID PO 06/11/24 10:00 Empaglifozin 10 mg DAILY PO 06/11/24 10:00 06/12/24 08:51 10 MG Nifedipine 60 mg DAILY PO 06/11/24 10:00 06/12/24 08:52 60 MG Morphine Sulfate 2 mg Q30M PRN IV 06/11/24 04:15 Carvedilol 12.5 mg BID PO 06/11/24 10:00 06/12/24 08:50 12.5 MG Spironolactone 50 mg DAILY PO 06/11/24 08:30 06/12/24 08:52 50 MG Ergocalciferol 50,000 unit Q7D PO 06/11/24 10:30 06/11/24 14:09 50,000 UNIT Acetaminophen 650 mg Q6HP PRN PO 06/12/24 08:00 06/12/24 08:50 650 MG Examination Patient lying in bed, in no acute distress General: Well-built, afebrile, palor, mucosae are moist Cardiovascular: Regular S1 and S2. No murmurs, gallops or rubs. No JVD elevation. No pedal edema Respiratory: Normal B/L air entry on room air. Clear lung sounds on auscultation Abdomen: Soft, left lower quadrant tenderness, nondistended, normoactive bowel sounds, no rebound tenderness, no organomegaly, no masses Genitourinary: Deferred MSK/skin: Mobilizes 4 limbs. Skin is dry and warm Neurological: No motor, no sensitive deficits, normal speech. Pupils are isocoric and reactive. Psych/Mental Status: A/Ox3 laboratory and microbiology Laboratory Tests 06/12/24 05:02 Test 06/12/24 05:02 Range/Units Serum Glucose 71 L 74-106 mg/dL Microbiology Date/Time Source Procedure Growth Status 06/10/24 23:30 Voided Urine Urine Culture - Preliminary Resulted Labs and/or images reviewed: Labs reviewed by me, Image(s) reviewed by me Problem List/Assessment/Plan Problem List/Assessment/Plan Hypertensive emergency Chronic congestive heart failure Cardiology consulted-recommended Continue Coreg 12.5 mg b.i.d., nifedipine 60 mg daily, Jardiance 10 mg daily, started Entresto 24-26mg b.i.d., spironolactone 50 mg daily Follow up on renin aldosterone outpatient Received IV labetalol Abdominal pain, likely viral gastroenteritis CT abdomen unremarkable Abdominal ultrasound unremarkable Anemia, likely microcytic Iron panel suggestive of iron-deficiency anemia Stool occult unremarkable Ruled out renal artery stenosis Duplex reviewed from 05/30/2024 was unremarkable Ruled out pulmonary embolism CT angio unremarkable for PE Ruled out significant CAD Questionable congestive heart failure Left heart catheterization 08/22 showed clean coronaries. Ventriculography in the CARRERA projection shows an EF of 30% with anterior hypokinesis, predominantly. Underlying global dysfunction. Echocardiogram 05/28 completed showed Left atrial enlargement. Concentric LVH. Valves appear to be structurally normal. Left ventricular function is preserved at 60% with normal RV function. Moderate tricuspid regurgitation. Pulmonary hypertension with RVSP of 50 mmHg. Major depressive disorder-suicidal ideation but no plans Tele psych eval done, recommendations - She denies plan but would benefit from voluntary inpatient psych transfer for stabilization. patient agrees with this plan. Started seroquel 50 po qhs Sitter Right ovarian cysts Enlarged right ovary containing multiple cysts. Outpatient workup advised Medication noncompliance Counseled regarding importance of compliance Obesity Counseled regarding lifestyle measures Vitamin-D deficiency Replenished Cardiac diet Patient was ambulatory, does not require prophylactic anticoagulation [place] [employer]er consulted for inpatient psych transfer for stabilization. Plan discussed with patient in which all questions have been answered Goals of care discussed with patient for more than 22 minutes, full code status Case discussed with Dr. Recio Plan discussed with: Patient My Orders My Orders Orders - RADHA LORENZANA Procedure Category Date Status Time Mrsa Screen DANNY 06/11/24 In Process 20:48 Communication Order ORDERS 06/12/24 Transmitted 07:06 Acetaminophen Tablet PHA 06/12/24 In Process (Tylenol Tablet) 08:00 Sitter At Bedside ORDERS 06/12/24 Transmitted 13:32 Sitter 1:1 ORDERS 06/12/24 Transmitted 13:32 Date of Service: Jun 12, 2024 Billing Provider: JESIS RECIO MD Common Visit Codes: [id number] INP/OBS CARE(HIGH) RADHA LORENZANA RESIDENT Jun 12, 2024 14:36 JESSI RECIO MD Jun 12, 2024 21:31
[2024-06-12] MEDS ORDERED: LORazepam 2MG/ML-1ML VIAL IV PRN (15:45)
[2024-06-12] MEDS: QUEtiapine FUMARATE 25 MG TAB PO ONE (17:15)
[2024-06-13] VITALS (8 sets, daily range): BP systolic 106–132; BP diastolic 72–93; PULSE 68–76; RESP 16–18; TEMP 97.7–98.4; O2SAT 98–100
[2024-06-13 07:59] LABS: Anion Gap 7 (5-15); Carbon Dioxide 27 mmol/L (20-31); Chloride 104 mmol/L (98-107); Sodium 138 mmol/L (136-145)
[2024-06-13 08:04] LABS: Glucose 83 mg/dL (74-106)
[2024-06-13 08:05] LABS: BUN/Creatinine Ratio 9.6 (10.0-20.0); Blood Urea Nitrogen 11 mg/dL (9-23)
[2024-06-13 08:09] LABS: Basophils # (auto) 0.1 10 ^3/uL (0-0.2); Hemoglobin 10.4 g/dL (12.2-16.2)
[2024-06-13 08:13] LABS: Basophils % (auto) 1.1 % (0.0-2.0); Eosinophils # (auto) 0.2 10 ^3/uL (0-0.8); Eosinophils % (auto) 3.4 % (0.0-7.0); Hematocrit 33.2 % (36.0-46.0); Lymphocytes # (auto) 1.8 10 ^3/uL (0.4-5.4); Lymphocytes % (auto) 25.5 % (10.0-50.0); Mean Corpuscular Hemoglobin 23.3 pg (28.0-32.0); Mean Corpuscular Hgb Conc. 31.4 g/dL (32.0-36.0); Mean Corpuscular Volume 74.2 fL (80.0-100.0); Monocytes # (auto) 0.9 10 ^3/uL (0-1.3); Monocytes % (auto) 13.2 % (0.0-12.0); Neutrophils # (auto) 4.1 10 ^3/uL (1.6-8.6); Neutrophils % (auto) 56.8 % (37.0-80.0); Nucleated Red Blood Cells % 0.1 %; Platelet Count (auto) 335 10^3/uL (140-450); Red Blood Cells 4.48 10^6/uL (4.0-5.20); Red Cell Distribution Width 17.2 % (11.8-14.3); White Blood Cell 7.2 10^3/uL (4.4-10.8)
--- NOTE | 2024-06-13 12:27 | DVHPNRES ---
Progress Note Date Seen: Jun 13, 2024 Resident Creating Document: RADHA LORENZANA RESIDENT Medical Necessity Reason Pt with a Central, PICC or Fol: No Subjective Review of Systems Ms Avery is a 34-year-old female with past medical history of HTN, congestive heart failure presents to the ER with a chief complaint of abdominal pain for past 4 days, chest pain for 1 week. Patient reports muscle cramps like chest pain, which is diffuse, radiating to L arm, unrelated to exertion , not associated with dyspnea, palpitation, diaphoresis. She reports abdominal pain which is diffuse and located in lower abdomen, sharp in nature. Denies diarrhea, vomiting, nausea. Reports stress as her father recently had amputation. Bowel movement was 2 days back. Denies hematochezia or melena.. Associated features include insomnia, loss of appetite, but denies low mood, suicidal or homicidal ideations. Patient's blood pressure was 193/[address] was done which was unremarkable. CT abdomen was unremarkable. D-dimer was Elevated therefore CT angio completed which was unremarkable for PE. Pelvic ultrasound shows ovarian cyst. Past medical history: Hypertension, congestive heart failure Past surgical history: Unremarkable Past Psychiatric History : She reports one prior psychiatric admission around 2012. She had two prior suicide attempt with OD on pills and cutting her wrist also last or around 2012. She denies any current outpatient mental outpatient follow up. She reports history of Seroquel, Abilify and Trazodone use, also last used over 10 years ago. She reports prior diagnosis of depression, bipolar and and ASD. Social history: Smoking/drinking/drug use 06/11 - Patient seen and examined at the bedside. Cardiology consulted-started spironolactone and Coreg. Eval pending. Patient is medically stable for tele psych eval. 06/12-patient seen and examined at bedside. She reports feeling sad and suicidal, says that it would been better if she is not there, denies active plans for now. Her father recently had amputation bilateral stressed about that. Per patient's mother, she had also stressful relationship. Patient lives with her mom and has a daughter and sister who supports her. Sitter 24/10. Tele psych eval done, recommendations - She denies plan but would benefit from voluntary inpatient psych transfer for stabilization. patient agrees with this plan. Recommend to restart seroquel 50 po qhs Stool occult is negative, hemoglobin stable, diet changed to cardiac 06/13 - patient seen and examined at the bedside. Reports feeling better. Pending transfer to psych facility. Objective vital signs Vital Sign Date Time Temp Pulse Resp B/P (MAP) Pulse Ox O2 Delivery O2 Flow Rate FiO2 06/13/24 10:43 64 06/13/24 09:43 118/78 06/13/24 08:52 98.3 16 100 98.3 06/13/24 08:00 Room Air* 0 21 Total Intake and Output 06/12/24 06/12/24 06/13/24 15:00 23:00 07:00 Intake Total 1190 ml 800 ml Balance 1190 ml 800 ml medications Current Medications Medications Dose Ordered Sig/Poli Route Start Time Stop Time Status Last Admin Dose Admin Aspirin 81 mg DAILY PO 06/11/24 10:00 Hold Hydralazine HCl 25 mg BID PO 06/11/24 10:00 06/13/24 09:42 25 MG Sacubitril/ Valsartan 1 tab BID PO 06/11/24 10:00 06/13/24 09:41 1 TAB Patient Own Medication 5 mg BID PO 06/11/24 10:00 Empaglifozin 10 mg DAILY PO 06/11/24 10:00 06/13/24 09:42 10 MG Nifedipine 60 mg DAILY PO 06/11/24 10:00 06/13/24 09:43 60 MG Morphine Sulfate 2 mg Q30M PRN IV 06/11/24 04:15 Carvedilol 12.5 mg BID PO 06/11/24 10:00 06/13/24 09:43 12.5 MG Spironolactone 50 mg DAILY PO 06/11/24 08:30 06/13/24 09:42 50 MG Ergocalciferol 50,000 unit Q7D PO 06/11/24 10:30 06/11/24 14:09 50,000 UNIT Acetaminophen 650 mg Q6HP PRN PO 06/12/24 08:00 06/12/24 08:50 650 MG Quetiapine Fumarate 50 mg HS PO 06/13/24 22:00 Lorazepam 1 mg Q5MINP PRN IV 06/12/24 15:45 laboratory and microbiology Laboratory Tests 06/13/24 07:06 Test 06/13/24 07:06 Range/Units Serum Glucose 83 74-106 mg/dL Microbiology Date/Time Source Procedure Growth Status 06/11/24 20:10 Nose MRSA Screen - Final Complete 06/10/24 23:30 Voided Urine Urine Culture - Final Complete Labs and/or images reviewed: Labs reviewed by me, Image(s) reviewed by me Problem List/Assessment/Plan Problem List/Assessment/Plan 06/13 - patient seen and examined at the bedside. Reports feeling better. Pending transfer to psych facility. Hypertensive emergency Chronic congestive heart failure Cardiology consulted-recommended Continue Coreg 12.5 mg b.i.d., nifedipine 60 mg daily, Jardiance 10 mg daily, started Entresto 24-26mg b.i.d., spironolactone 50 mg daily Follow up on renin aldosterone outpatient Received IV labetalol Abdominal pain, likely viral gastroenteritis CT abdomen unremarkable Abdominal ultrasound unremarkable Anemia, likely microcytic Iron panel suggestive of iron-deficiency anemia Stool occult unremarkable Started p.o. ferrous sulfate 325 mg every other day Ruled out renal artery stenosis Duplex reviewed from 05/30/2024 was unremarkable Ruled out pulmonary embolism CT angio unremarkable for PE Ruled out significant CAD Questionable congestive heart failure Left heart catheterization 08/22 showed clean coronaries. Ventriculography in the CARRERA projection shows an EF of 30% with anterior hypokinesis, predominantly. Underlying global dysfunction. Echocardiogram 05/28 completed showed Left atrial enlargement. Concentric LVH. Valves appear to be structurally normal. Left ventricular function is preserved at 60% with normal RV function. Moderate tricuspid regurgitation. Pulmonary hypertension with RVSP of 50 mmHg. Major depressive disorder-suicidal ideation but no plans Tele psych eval done, recommendations - She denies plan but would benefit from voluntary inpatient psych transfer for stabilization. patient agrees with this plan. Started seroquel 50 po qhs Sitter Right ovarian cysts Enlarged right ovary containing multiple cysts. Outpatient workup advised Medication noncompliance Counseled regarding importance of compliance Obesity Counseled regarding lifestyle measures Vitamin-D deficiency Replenished Cardiac diet Patient is ambulatory, does not require prophylactic anticoagulation [employer] Helper consulted for inpatient psych transfer for stabilization. Plan discussed with patient in which all questions have been answered Goals of care discussed with patient for more than 22 minutes, full code status Case discussed with Dr. Recio Plan discussed with: Patient My Orders My Orders Orders - RADHA LORENZANA RESIDENT Procedure Category Date Status Time Sitter At Bedside ORDERS 06/12/24 Transmitted 13:32 Sitter 1:1 ORDERS 06/12/24 Transmitted 13:32 Quetiapine Fumarate PHA 06/13/24 In Process Tablet (Seroquel Tab 22:00 * [employer]per CONS 06/12/24 Transmitted Consult Cardiac DIET 06/12/24 Transmitted Diet-2gna,Lofat,Lochol Dinner Lorazepam 2mg/Ml Inj PHA 06/12/24 In Process (Ativan Inj) 15:45 Date of Service: Jun 13, 2024 Billing Provider: JESSI RECIO MD Common Visit Codes: [id number] INP/OBS CARE(HIGH) RADHA LORENZANA RESIDENT Jun 13, 2024 12:27 JESSI RECIO MD Jun 14, 2024 09:46
[2024-06-13 13:08] LABS: Chlamydia Trachomatis, NAA Negative (Negative); Neisseria gonorrhoeae, NAA Negative (Negative)
[2024-06-13] MEDS: FERROUS SULFATE 325mg EC TAB PO ONE (15:25)
[2024-06-13] MEDS: ZOLPIDEM TARTRATE 5 MG TAB PO SCH (21:53)
[2024-06-13] MEDS ORDERED: QUEtiapine FUMARATE 25 MG TAB PO SCH (22:00)
[2024-06-14] VITALS (7 sets, daily range): BP systolic 108–126; BP diastolic 78–90; PULSE 72–80; RESP 16–20; TEMP 97.9–98.3; O2SAT 96–100
[2024-06-14 05:52] LABS: Eosinophils # (auto) 0.3 10 ^3/uL (0-0.8); Monocytes # (auto) 1.2 10 ^3/uL (0-1.3)
[2024-06-14 05:56] LABS: Basophils # (auto) 0 10 ^3/uL (0-0.2); Basophils % (auto) 0.4 % (0.0-2.0); Eosinophils % (auto) 2.5 % (0.0-7.0); Hematocrit 34.3 % (36.0-46.0); Lymphocytes % (auto) 19.2 % (10.0-50.0); Mean Corpuscular Hemoglobin 23.3 pg (28.0-32.0); Mean Corpuscular Hgb Conc. 32.1 g/dL (32.0-36.0); Mean Corpuscular Volume 72.6 fL (80.0-100.0); Monocytes % (auto) 11.8 % (0.0-12.0); Neutrophils # (auto) 6.8 10 ^3/uL (1.6-8.6); Neutrophils % (auto) 66.1 % (37.0-80.0); Platelet Count (auto) 348 10^3/uL (140-450); Red Blood Cells 4.72 10^6/uL (4.0-5.20); Red Cell Distribution Width 17.7 % (11.8-14.3); White Blood Cell 10.3 10^3/uL (4.4-10.8)
[2024-06-14 06:05] LABS: Anion Gap 10 (5-15); Carbon Dioxide 23 mmol/L (20-31); Chloride 104 mmol/L (98-107); Potassium 3.9 mmol/L (3.5-5.1); Sodium 137 mmol/L (136-145)
[2024-06-14 06:06] LABS: Calcium 9.4 mg/dL (8.7-10.4)
[2024-06-14 06:11] LABS: BUN/Creatinine Ratio 10.3 (10.0-20.0); Blood Urea Nitrogen 12 mg/dL (9-23); Glucose 80 mg/dL (74-106)
--- NOTE | 2024-06-14 13:37 | TELE.CONS ---
PSYCHIATRY REASSESSMENT Date: 06/14/24 [id number] S: The patient was seen and evaluated at [facility] ED via telepsychiatry platform. 34 yr old female was seen by PMHNP Chantel Tomlin on 06/12 and diagnosed with unspecified mood disorder. She had been recommended for voluntary hospitalization. She stated she has suicidal thoughts which she deals with and hasn't acted on in the past. She denied having any plan or intent to harm herself. She noted she feels comfortable returning home and getting outpatient follow up. She stays with her mother In [place]. She stated she had been on Abilify and Ambien in the past. She noted she slept well on Seroquel and is open to starting medications and following up with outpatient care. MSE: alert and oriented speech-regular rate, rhythm and volume Mood-okay Affect-euthymic, calm, congruent. Tht process-linear and goal directed Tht Content-Denied having suicidal or homicidal ideation. Denied auditory or visual hallucinations. Insight-fair Judgment-fair Impulse control-fair. Diagnosis: Adjustment disorder with mixed disturbance of emotion and conduct; ADHD Assessment: This 34 yr old female appears to suffer from depression and anxiety and may benefit from starting a mood stabilizer, antidepressant and sleep m edication. She is no longer suicidal and may be treated as an outpatient. Plan: 1. Safety. The patient is a low risk for self harm and may be managed as an outpatient. 2. Legal-voluntary. Recommend outpatient follow up for medication management and therapy. 3. Medications-risks, benefits and adverse effects of the following were discussed and recommend starting the following (recommend giving her a 30 day supply with two refills): Abilify 10mg qam Seroquel 50mg qhs Lexapro 5mg qam 4. Case discussed with RN. 5. Please contact psychiatry if further follow up or reevaluation is desired. Yes NIKOS WYMAN MD Jun 14, 2024 13:37
--- NOTE | 2024-06-14 15:14 | DVHDSRES ---
Discharge Summary Date of Admission Resident Creating Document: RADHA LORENZANA RESIDENT Jun 11, 2024 at 04:04 Date of Discharge: Jun 14, 2024 Labs/Diagnostic Data: Laboratory Results Test 06/14/24 05:29 06/12/24 10:00 06/12/24 05:02 06/11/24 08:55 White Blood Count 10.3 10^3/uL (4.4-10.8) Red Blood Count 4.72 10^6/uL (4.0-5.20) Hemoglobin 11.0 g/dL (12.2-16.2) Hematocrit 34.3 % (36.0-46.0) Mean Corpuscular Volume 72.6 fL (80.0-100.0) Mean Corpuscular Hemoglobin 23.3 pg (28.0-32.0) Mean Corpuscular Hemoglobin Concent 32.1 g/dL (32.0-36.0) Red Cell Distribution Width 17.7 % (11.8-14.3) Platelet Count 348 10^3/uL (140-450) Mean Platelet Volume 7.5 fL (6.9-10.8) Neutrophils (%) (Auto) 66.1 % (37.0-80.0) Lymphocytes (%) (Auto) 19.2 % (10.0-50.0) Monocytes (%) (Auto) 11.8 % (0.0-12.0) Eosinophils (%) (Auto) 2.5 % (0.0-7.0) Basophils (%) (Auto) 0.4 % (0.0-2.0) Neutrophils # (Auto) 6.8 10 ^3/uL (1.6-8.6) Lymphocytes # (Auto) 2.0 10 ^3/uL (0.4-5.4) Monocytes # (Auto) 1.2 10 ^3/uL (0-1.3) Eosinophils # (Auto) 0.3 10 ^3/uL (0-0.8) Basophils # (Auto) 0 10 ^3/uL (0-0.2) Nucleated Red Blood Cells 0.0 % Sodium Level 137 mmol/L (136-145) Potassium Level 3.9 mmol/L (3.5-5.1) Chloride Level 104 mmol/L (98-107) Carbon Dioxide Level 23 mmol/L (20-31) Anion Gap 10 (5-15) Blood Urea Nitrogen 12 mg/dL (9-23) Creatinine 1.16 mg/dL (0.550-1.02) Glomerular Filtration Rate Calc 63 mL/min (>90) BUN/Creatinine Ratio 10.3 (10.0-20.0) Serum Glucose 80 mg/dL (74-106) Calcium Level 9.4 mg/dL (8.7-10.4) Stool Occult Blood Negative (Negative) Stool Occult Blood Sample #3 (Negative) Stool for White Cells Few Magnesium Level 2.0 mg/dL (1.6-2.6) Total Bilirubin 1.0 mg/dL (0.2-1.0) Aspartate Amino Transferase (AST) 18 U/L (13-40) Alanine Aminotransferase (ALT) 24 U/L (7-40) Alkaline Phosphatase 69 U/L (46-116) Total Protein 6.2 g/dL (5.7-8.2) Albumin 3.7 g/dL (3.2-4.8) Test 06/11/24 03:31 06/11/24 00:26 06/10/24 23:59 06/10/24 23:54 Haptoglobin 47 mg/dL (33-278) Chlamydia species IgG Antibody 1.40 ratio (0.00-0.90) Reticulocyte Count (auto) 2.44 % (0.5-1.5) D-Dimer, Quantitative 2.32 mg/L FEU (0.0-0.49) Iron Level 17 ug/dL (50-170) Total Iron Binding Capacity 344 ug/dL (250-425) Percent Iron Saturation 4.9 % (15-50) Ferritin 20.2 ng/mL (10-291) Vitamin B12 Level 887 pg/mL (211-911) Vitamin D 25-Hydroxy 17.3 ng/mL (30.0-100) Folic Acid 10.89 ng/mL (>5.38) Thyroid Stimulating Hormone (TSH) 1.73 uIU/mL (0.55-4.78) HIV (1&2) Antibody Negative (Negative) Lactic Acid Level 1.2 mmol/L (0.4-2.0) Troponin I High Sensitivity 27 ng/L (</=34) Lipase 38 U/L (12-53) Influenza Type A Antigen Negative (Negative) Influenza Type B Antigen Negative (Negative) SARS-CoV-2 Antigen (Rapid) Negative (NEGATIVE) Test 06/10/24 23:30 Urine Color Yellow (Yellow) Urine Clarity Turbid (Clear) Urine pH 5.5 (5.0-9.0) Urine Specific [place] 1.028 (1.001-1.035) Urine Protein 1+ (Negative) Urine Ketones Negative (Negative) Urine Blood Negative /uL (Negative) Urine Nitrite Negative (Negative) Urine Bilirubin Negative (Negative) Urine Urobilinogen Normal mg/dL (Negative) Urine Leukocyte Esterase Negative /uL (Negative) Urine RBC 2 /hpf (0 - 4) Urine Microscopic WBC 4 /HPF (0-5) Urine Squamous Epithelial Cells Many /hpf (<5) Urine Bacteria Few /hpf (None Seen) Urine Mucus Few (None Seen) Urine Glucose Normal mg/dL (Normal) Urine Test Negative (Negative) Urine Opiates Screen Neg (NEGATIVE) Urine Fentanyl Screen Neg (NEGATIVE) Urine Barbiturates Screen Neg (NEGATIVE) Urine Phencyclidine Screen Neg (NEGATIVE) Urine Amphetamines Screen Neg (NEGATIVE) Urine Benzodiazepines Screen Neg (NEGATIVE) Urine Cocaine Screen Neg (NEGATIVE) Urine Cannabinoids Screen Neg (NEGATIVE) Chlamydia trachomatis (CLARE) Negative (Negative) Neisseria gonorrhoeae (CLARE) Negative (Negative) Other Laboratory Tests 06/14/24 05:29 Brief Hx & Hospital Course: Ms Avery is a 34-year-old female with past medical history of HTN, congestive heart failure presents to the ER with a chief complaint of abdominal pain for past 4 days, chest pain for 1 week. Patient reports muscle cramps like chest pain, which is diffuse, radiating to L arm, unrelated to exertion , not associated with dyspnea, palpitation, diaphoresis. She reports abdominal pain which is diffuse and located in lower abdomen, sharp in nature. Denies diarrhea, vomiting, nausea. Reports stress as her father recently had amputation. Bowel movement was 2 days back. Denies hematochezia or melena.. Associated features include insomnia, loss of appetite, but denies low mood, suicidal or homicidal ideations. Patient had Left heart catheterization 08/2021 showed clean coronaries. Ventriculography in the CARRERA projection shows an EF of 30% with anterior hypokinesis, predominantly. Underlying global dysfunction. Patient's blood pressure was 193/[address] was done which was unremarkable. Past medical history: Hypertension, congestive heart failure Past surgical history: Unremarkable Past Psychiatric History : She reports one prior psychiatric admission around 2012. She had two prior suicide attempt with OD on pills and cutting her wrist also last or around 2012. She denies any current outpatient mental outpatient follow up. She reports history of Seroquel, Abilify and Trazodone use, also last used over 10 years ago. She reports prior diagnosis of depression, bipolar and and ASD. During hospitalization, patient blood pressure was 193/[address] scan was done which was unremarkable.CT abdomen was unremarkable. D-dimer was Elevated therefore CT angio completed which was unremarkable for PE. Stool occult is negative, hemoglobin stable, diet changed to cardiac. Pelvic ultrasound shows ovarian cyst. Ruled out renal artery stenosis, duplex was reviewed from 05/30/2024 was unremarkable. Cardiology was consulted, recommended continued Coreg and nifedipine, along with Jardiance. We started Entresto and spironolactone. She reports feeling sad and suicidal, says that it would been better if she is not there, denies active plans for now. Her father recently had amputation bilateral stressed about that. Per patient's mother, she had also stressful relationship. Patient lives with her mom and has a daughter and sister who supports her. Sitter 24/10. Tele psych eval done, recommendations - She denies plan but would benefit from voluntary inpatient psych transfer for stabilization. patient agrees with this plan. Recommend to restart seroquel 50 po qhs. account services specialist consulted to transferred to psych facility, 06/12 which could not be completed until 06/14, therefore repeat tele psych was consulted on 06/14- Recommend outpatient follow up for medication management and therapy. Medications-risks, benefits and adverse effects of the following were discussed by tele psych and recommend starting the following (recommend giving her a 30 day supply with two refills): Abilify 10mg qam Seroquel 50mg qhs Lexapro 5mg qam 06/14-patient is hemodynamically stable, reports feeling better, reports no active plan of suicide , tele psych recommended outpatient follow up for medication management. Therefore patient has been discharged home on p.o. ferrous sulfate 325 mg every other day, Abilify 10 mg q.a.m., Seroquel 50 mg q.h.s., Lexapro 5 mg q.a.m.. She was advised to follow up with psychiatrist outpatient primary care physician was outpatient, and discharge clinic appointment. Operations or Procedures ORDERING PHYSICIAN: RACHELLE SILVA MD PROCEDURE(s): CTACH - CT ANGIO CHEST CONTRAST REASON: Chest pain, positive D-dimer ORDER NUMBER(s): [id number], ACCESSION NUMBER(s): [id number] INDICATION: Chest pain, positive D-dimer TECHNIQUE: Multidetector CTA of the chest was performed of the chest with 100 cc of intravenous contrast. PULMONARY ANGIOGRAPHY PROTOCOL was utilized using a bolus-tracking technique centered on the main pulmonary artery. Axial, coronal and sagittal multiplanar and MIP reformats were performed. Radiation Dose Information: CT Dose: CTDI volume is 18.85 mGy. Dose-length product is 649.41 mGy*cm The dose indicators for CT are the volume Computed Tomography (CT) Dose Index (CTDIvol) and the Dose Length Product (DLP), and are measured in units of mGy and mGy-cm, respectively. These indicators are not patient dose, but values generated from the CT scanner acquisition factors. The report includes radiation exposure data for exposures received during this examination. Comparison: Chest x-ray same day Findings: Evaluation of the pulmonary artery demonstrates no evidence of focal filling defect to suggest pulmonary embolus. No pericardial or pleural effusion. The thoracic aorta appears relatively normal in caliber and contour. There is cardiomegaly. No mediastinal or hilar adenopathy. Lungs appear relatively clear. Visualized portions of the upper abdomen demonstrate hyperdensities within the stomach, as seen previously. No suspicious osseous lesion. IMPRESSION: No evidence of pulmonary embolism. Cardiomegaly. ATED BY: ÁLVARO BARBOZA MD DICTATED DATE/TIME: 06/11/24253 SIGNED BY: ÁLVARO BARBOZA MD SIGNED DATE/TIME: 06/11/24253 CC: Condition at Discharge: Fair Final Diagnosis/Problems List Hypertensive emergency-resolved Major depressive disorder-suicidal ideation but no plans Chronic compensated HFimEF Abdominal pain, likely viral gastroenteritis Anemia, likely microcytic Ruled out renal artery stenosis Ruled out pulmonary embolism Ruled out significant CAD Questionable congestive heart failure Right ovarian cysts Medication noncompliance Obesity Vitamin-D deficiency Discharge Disposition: Home Discharge Instruct/Medications Diet: Cardiac 2g Na,low cholest Diet comment: Activity: No Restrictions, As Tolerated Follow Up/Referral: Outpatient follow up with psychiatrist as soon as possible Outpatient follow up with primary care physician within 7 days Discharge clinic appointment within 7 days and review renin Cirilo serum levels as outpatient Medications: Per EMR Discharge Statement: "Patient was advised to return to the ER or call 911 if any headaches, dizziness, shortness of breath, chest pain, abdominal pain, bleeding, fevers, or worsening of medical condition. Patient was counseled about treatment plan, medications, possible side effects, patientverbalized understanding. All questions were answered to the best of my ability. This discharge took greater then 30 minutes in planning, reviewing documentation, counseling the patient, and discussing with other team members." ASSESSMENT ASSESSMENT Assessment Hypertensive emergency-resolved Major depressive disorder-suicidal ideation but no plans Chronic congestive heart failure Abdominal pain, likely viral gastroenteritis Anemia, likely microcytic Iron panel suggestive of iron-deficiency anemia Ruled out renal artery stenosis Ruled out pulmonary embolism Ruled out significant CAD Date of Service: Jun 14, 2024 Billing Provider: JESSI RECIO MD Common Visit Codes: 53401-BCQ/OBS DISCH DAY >30min RADHA LORENZANA RESIDENT Jun 14, 2024 15:14 JESSI RECIO MD Jun 17, 2024 14:32
[2024-06-14 16:06] LABS: Renin Activity 0.697 ng/mL/hr (.)
[2024-06-14] MEDS ORDERED: ESCI5TAB PO (16:35)
[2024-06-14] MEDS ORDERED: ARIP10TA8 PO (16:35)
[2024-06-14] MEDS ORDERED: SPIR25TA8 PO (16:35)
[2024-06-14] MEDS ORDERED: QUET50TA PO (16:35)
== END 2024-06-14 19:07 | disposition home or self-care (01) | DRG 392 ==
LOC: EDBD 22:47 → ER 22:47 → OVERFLOW 06-11 04:04 → WEST WING 06-11 18:33 → TELE-WESTW 06-13 10:58 → WEST WING 06-13 21:45
PROVIDERS: ADMIT Internal Medicine; ATTEND Emergency Medicine
DX: A08.4 Viral intestinal infection, unspecified (principal); I16.1 Hypertensive emergency; I50.22 Chronic systolic (congestive) heart failure; N83.201 Unspecified ovarian cyst, right side; I11.0 Hypertensive heart disease with heart failure; D50.9 Iron deficiency anemia, unspecified; E66.9 Obesity, unspecified; I36.1 Nonrheumatic tricuspid (valve) insufficiency; E55.9 Vitamin D deficiency, unspecified; Z20.822 Contact with and (suspected) exposure to COVID-19; G47.00 Insomnia, unspecified; F31.9 Bipolar disorder, unspecified; F41.9 Anxiety disorder, unspecified; I27.20 Pulmonary hypertension, unspecified; Z91.148 Patient's other noncompliance with medication regimen for other reason; Z86.73 Personal history of transient ischemic attack (TIA), and cerebral infarction without residual deficits; Z68.26 Body mass index [BMI] 26.0-26.9, adult; Z79.82 Long term (current) use of aspirin; Z79.899 Other long term (current) drug therapy; Z79.01 Long term (current) use of anticoagulants; Z79.2 Long term (current) use of antibiotics; Z91.199 Patient's noncompliance with other medical treatment and regimen due to unspecified reason; Z83.3 Family history of diabetes mellitus; Z82.49 Family history of ischemic heart disease and other diseases of the circulatory system; Z91.51 Personal history of suicidal behavior; Z81.8 Family history of other mental and behavioral disorders; Z79.1 Long term (current) use of non-steroidal anti-inflammatories (NSAID)
CPT/HCPCS: 36415; 70450; 71045; 71275; 74176; 76700; 76830; 76856; 80048; 80053; 80307; 81001; 81025; 82088; 82270; 82306; 82607; 82728; 82746; 83010; 83540; 83550; 83605; 83690; 83735; 83835; 84244; 84443; 84484; 85025; 85045; 85048; 85379; 86256; 86703; 87081; 87086; 87426; 87804; 93005; 96374; 96375; G0378; J2405

== ENCOUNTER 2024-06-16 19:45 | Emergency (ER) | payer BC, MEDICAID ==
[~2024-06-16] VITALS: Ht 175.3 cm; Wt 81.8 kg
[~2024-06-16 19:45] MED LIST changes: -AML5T PO; +ARIP10TA8 PO; -ARIP5TAB11 PO; -ASPI-628 PO; -CLON0.1T; -CLON0.2T PO; -ENAL1TAB47 PO; +ESCI5TAB PO; -HYDR25TA4 PO; -HYDR25TA87 PO; -MET50T PO; -METO-281 PO; -NIFE1TAB36 PO; +QUET50TA PO; +SPIR25TA8 PO; -TRAM50TA2 PO; -VALA500T33 PO; -ZOLP10TA PO
--- NOTE | 2024-06-16 19:57 | ED.PDOC ---
History of Present Illness HPI Comments 34 year old female brought in by EMS presents to the ED with a chief complaint of elevated blood pressure onset today (06/16/24). Patient was discharged from this hospital on 06/14/24, with blood pressure medication, has not picked up from pharmacy, patient was advised to follow up with psychiatrist as an ou tpatient. Upon EMS arrival, BP was 196/120. PMHx CHF, depression, anxiety, HTN, TIA. Denies chest pain, shortness of breath, SI, HI, nausea, vomiting, diarrhea. No other symptoms or modifying factors present at this time. Time Seen by MD: 19:48 Primary Care Provider: unknown Reviewed Notes: Nurses Notes, Medications, Allergies Allergies: Coded Allergies: NO KNOWN ALLERGIES (Unverified , 08/31/21) Home Meds Active Scripts Spironolactone (Spironolactone) 25 Mg Tab, 50 MG PO DAILY for 30 Days, #60 TAB 2 [facility]24 Escitalopram Oxalate (Lexapro) 5 Mg Tab, 1 TAB PO QAM, #30 TAB 2 [facility] 06/14/24 Aripiprazole (Abilify) 10 Mg Tab, 10 MG PO QAM for 30 Days, #30 TAB 2 Refills Prov[facility] 06/14/24 Quetiapine Fumerate (Seroquel) 50 Mg Tab, 1 TAB PO HS for 30 Days, #30 TAB 2 [facility] 06/14/24 Carvedilol (COREG) 3.125 Mg Tab, 3.125 MG PO BID, #180 TAB Prov:SANDIP GUZMAN MD 05/31/24 Nifedipine (Nifedipine Er) 60 Mg Tab, 60 MG PO DAILY, #90 TAB Prov:SANDIP GUZMAN MD 05/31/24 Dapagliflozin Propanediol (Farxiga) 10 Mg Tab, 10 MG PO DAILY for 30 Days, #30 TAB 3 Refills Prov:WILL ROWLAND MD 08/26/21 Acyclovir (Acyclovir) 400 Mg Tab, 400 MG PO TID for 7 Days, #21 TAB Prov:WILL ROWLAND MD 08/26/21 Sacubitril-Valsartan (Entresto 24-26 mg) 1 Tab Tab, 1 TAB PO BID for 30 Days, #60 TAB 3 Refills Prov:WILL ROWLAND MD 08/16/21 Aspirin (Aspirin Low Strength) 81 Mg Chw, 81 MG PO DAILY for 30 Days, #30 TAB.CHEW 2 Refills Prov:WILL ROWLAND MD 08/16/21 Reported Medications Hydroxyzine Hcl (Hydroxyzine Hcl) 25 Mg Tab, 25 MG PO TIDPRN for 30 Days, MG 05/30/24 Discontinued Reported Medications Hydrochlorothiazide (Hydrochlorothiazide) 25 Mg Tab, 50 MG PO, TAB 05/30/24 Valacyclovir Hcl (Valacyclovir Hcl) 500 Mg Tab, 500 MG PO, TAB 05/30/24 Zolpidem Tartrate (Ambien) 10 Mg Tab, 5 MG PO HS, TAB 05/30/24 Aripiprazole (Abilify) 5 Mg Tab, 5 MG PO BID, TAB 02/27/22 Clonidine Hydrochloride (Clonidine Hcl) 0.1 Mg Tab 08/14/21 Discontinued Scripts Aspirin (Aspirin Adult Low Dose) 81 Mg Tab, 81 MG PO DAILY, #90 TAB Prov:SANDIP GUZMAN MD 05/31/24 Nifedipine (Nifedipine ER) 30 Mg Tab, 30 MG PO DAILY for 60 Days, #60 TAB Prov:THEE SANTIZO [employer] 09/04/23 Clonidine Hydrochloride (Clonidine Hcl) 0.2 Mg Tab, 1 TAB PO BID, #30 TAB 0 Refills Prov:LUIS ALBERTO MANN PAC 05/12/22 Amlodipine Besylate (NORVASC TABLET) 5 Mg Tb, 10 MG PO DAILY for 90 Days, #180 TAB Prov:THEE SANTIZO [employer] 02/28/22 Tramadol Hcl (Tramadol Hcl) 50 Mg Tab, 50 MG PO BID for 5 Days, #10 TAB Prov:JULIA SCHUMACHER MD 11/20/21 Metoclopramide Hcl (Reglan) 10 Mg Tab, 10 MG PO BID for 10 Days, #20 TAB Prov:JULIA SCHUMACHER MD 11/20/21 Hydralazine HCl (Hydralazine HCl) 25 Mg Tab, 50 MG PO TID for 30 Days, #90 TAB 3 Refills Prov:WILL ROWLAND MD 08/16/21 Hydralazine HCl (Hydralazine HCl) 25 Mg Tab, 25 MG PO BID for 60 Days, #120 TAB Prov:EMILIANO HARDWICK MD 01/22/19 Metoprolol Tartrate (LOPRESSOR TABLET) 50 Mg Tb, 50 MG PO BID for 60 Days, #120 TAB Prov:EMILIANO HARDWICK MD 01/22/19 Enalapril Maleate (Enalapril Maleate) 10 Mg Tab, 40 MG PO DAILY for 60 Days, #240 TAB Prov:EMILIANO HARDWICK MD 01/22/19 Information Source: Patient, Emergency Med Personnel Mode of Arrival: EMS Severity: Moderate Timing: Hours Duration: Since onset Prehospital treatment: None Associated signs and symptoms Hypertensive urgency, hypertensive crisis Past Medical History PAST MEDICAL HISTORY: Anxiety, CHF, Depression, HTN, TIA Surgical History: Denies all surgeries ACETYLENE BURNER History: No Pertinent ACETYLENE BURNER History Family History Family History: Family hx of HTN Social History Smoker: Non-Smoker Alcohol: Occasionally Drugs: Denies Drug Use Lives In: Home Constitutional: denies: chills, diaphoresis, fatigue, fever, malaise, sweats, weakness, others EENTM: denies: blurred vision, double vision, ear bleeding, ear discharge, ear drainage, ear pain, ear ringing, eye pain, eye redness, hearing loss, mouth pain, mouth swelling, nasal discharge, nose bleeding, nose congestion, nose pain, photophobia, tearing, throat pain, throat swelling, voice changes, others Respiratory: denies: cough, hemoptysis, orthopnea, SOB at rest, shortness of breath, SOB with excertion, stridor, wheezing, others Cardiovascular: reports: others (elevated BP); denies: chest pain, dizzy spells, diaphoresis, Dyspnea on exertion, edema, irregular heart beat, left arm pain, lightheadedness, palpitations, PND, syncope Gastrointestinal: denies: abdomen distended, abdominal pain, blood streaked bowels, constipated, diarrhea, dysphagia, difficulty swallowing, hematemesis, melena, nausea, poor appetite, poor fluid intake, rectal bleeding, rectal pain, vomiting, others Genitourinary: denies: abnormal vagina bleeding, burning, dyspareunia, dysuria, flank pain, frequency, hematuria, incontinence, pain, , vagina discharge, urgency, others Neurological: denies: dizziness, fainting, headache, left sided numbness, left sided weakness, numbness, paresthesia, pre-existing deficit, right sided numbness, right sided weakness, seizure, speech problems, tingling, tremors, weakness, others Musculoskeletal: denies: back pain, gout, joint pain, joint swelling, muscle pain, muscle stiffness, neck pain, others Integumetry: denies: bruises, change in color, change in hair/nails, dryness, laceration, lesions, lumps, rash, wounds, others Allergic/Immunocompromised: denies: Difficulty Healing, Frequent Infections, Hives, Itching, others Hematologic/Lymphatic: denies: anemia, blood clots, easy bleeding, easy bruising, swollen glands, others Endocrine: denies: excessive hunger, excessive sweating, excessive thirst, excessive urination, flushing, intolerance to cold, intolerance to heat, unexplained weight gain, unexplained weight loss, others Psychiatric: denies: anxiety, bipolar disorder, depression, hopeless, panic disorder, schizophrenia, sleepless, suicidal, others All Other Systems: Reviewed and Negative Physical Exam General Appearance: No Apparent Distress HEENT: Normal ENT Inspection, Pharynx Normal, TMs Normal Neck: Full Range of Motion, Non-Tender, Normal, Normal Inspection Respiratory: Chest Non-Tender, Lungs Clear, No Accessory Muscle Use, No Respiratory Distress, Normal Breath Sounds Cardiovascular: No Edema, No JVD, No Murmur, No Gallop, Normal Peripheral Pulses, Regular Rate/Rhythm Breast Exam: Deferred Gastrointestinal: No Organomegaly, Non Tender, No Pulsatile Mass, Normal Bowel Sounds, Soft Genitalia: Deferred Pelvic: Deferred Rectal: Deferred Extremities: No calf tenderness, Normal capillary refill, Normal inspection, Normal range of motion, Non-tender, No pedal edema Musculoskeletal : Apperance: Normal Neurologic: Alert, garland maker II-XII nml as Tested, No Motor Deficits, Normal Affect, Normal Mood, No Sensory Deficits Cerebellar Function: Normal Reflexes: Normal Skin: Dry, Normal Color, Warm Lymphatic: No Adenopathy Was a procedure done? Was a procedure done?: No Differential Dx Considerations may include: Hypertensive urgency, hypertensive crisis, generalized weakness X-Ray, Labs, Meds, VS Vital Signs Date Time Temp Pulse Resp B/P (MAP) Pulse Ox O2 Delivery O2 Flow Rate FiO2 06/16/24 20:51 89 19 97 Room Air* 0 21 06/16/24 20:36 199/114 06/16/24 20:15 98.7 98 17 196/119 (144) 97 98.7 06/16/24 19:52 98.7 77 20 196/120 (145) 97 98.7 Current Medications Medications (Trade) Dose Ordered Sig/Poli Route Start Time Stop Time Status Last Admin Hydralazine HCl (Apresoline Injection) 20 mg ONCE ONCE IV 06/16/24 20:00 06/16/24 20:01 DC 06/16/24 20:36 The patient was given hydralazine 20 mg IV push An IV Hep-Lock was established The patient was being discharged with a diagnosis of hypertensive urgency The patient will return to the emergency department's condition worsens. The patient was encouraged to follow up with her primary care doctor for alteration of her medications. The patient was not suicidal or homicidal upon discharge Time of 1ST Reevaluation: 20:18 Reevaluation 1ST: Unchanged Patient Education/Counseling: Diagnosis, Treatment, Prognosis, Need For Follow Up Family Education/Counseling: No Family Present Departure 1 Departure Time of Disposition: 20:55 Impression: Primary Impression: Hypertensive urgency Disposition: 01 HOME / SELF CARE / HOMELESS Condition: Fair Discharged With: Self Critical Care Note Critical Care Time?: No Stability Stability form required: No Heart Score Heart Score: Heart Score Response (Comments) Value History N/A 0 EKG N/A 0 Age N/A 0 Risk Factors N/A 0 Troponin N/A 0 Total 0 I personally scribed for ANUPAMA NOYOLA MD ([email or web address]) on 06/16/24 at 19:57. Electronically submitted by Muriel De Leon ([email or web address]). ANUPAMA NOYOLA MD Jun 16, 2024 19:57
[2024-06-16 20:15] VITALS: TEMP 98.7
[2024-06-16] MEDS: hydrALAZINE HCL 20 MG/ML VL IV ONE (20:36)
[2024-06-16 20:51] VITALS: PULSE 89; RESP 19; O2SAT 97
[2024-06-16] MEDS: SODIUM CHLORIDE 0.9% 1,000 ML IV ONE (21:13)
[2024-06-16 21:59] VITALS: BP 127/68
== END 2024-06-16 22:10 | disposition home or self-care (01) ==
LOC: ER 19:45 → EDBD 19:45 → ER 22:10
DX: I16.0 Hypertensive urgency (principal); I11.0 Hypertensive heart disease with heart failure; I50.9 Heart failure, unspecified; Z86.73 Personal history of transient ischemic attack (TIA), and cerebral infarction without residual deficits; Z79.624 Long term (current) use of inhibitors of nucleotide synthesis; Z79.82 Long term (current) use of aspirin; Z79.84 Long term (current) use of oral hypoglycemic drugs; Z79.899 Other long term (current) drug therapy
CPT/HCPCS: 96361; 96374; 99283; J0360; J7030

== ENCOUNTER 2024-06-17 04:52 | Inpatient (IN) | payer BC, MEDICAID ==
[~2024-06-17] VITALS: Ht 175.3 cm; Wt 81.8 kg
[2024-06-17 05:23] VITALS: PULSE 91; RESP 12; O2SAT 98
--- NOTE | 2024-06-17 05:49 | ED.PDOC ---
History of Present Illness HPI Comments 34 y/o F is BIBA for c/o abdominal pain, nausea, and vomiting, today. Per EMS report, patient endorses on sudden and unprovoked onset of symptoms 1x hour prior to ED arrival. She is commented to have been, recently, discharged, yesterday, following encounter for HTN emergency. Patient is stated to have vomi con 2x prior to EMS arrival and has been dry-heaving since in addition to being noted on being HTN. Per [facility] medical records, patient has a history of anxiety, ASD, CHF, depression, pulmonary HTN, TIA, and medication noncompliance. She denies any hematemesis, diarrhea, constipation, fever, chills, or other associated symptoms at this time. Chief Complaint: Abdominal Pain Time Seen by MD: 05:20 Primary Care Provider: unknown Reviewed Notes: Nurses Notes, Electronic Service Technician Notes, Medications, Allergies Allergies: Coded Allergies: NO KNOWN ALLERGIES (Unverified , 08/31/21) Home Meds Active Scripts Spironolactone (Spironolactone) 25 Mg Tab, 50 MG PO DAILY for 30 Days, #60 TAB 2 Refills Prov:RADHA LORENZANA [facility] 06/14/24 Escitalopram Oxalate (Lexapro) 5 Mg Tab, 1 TAB PO QAM, #30 TAB 2 Refills Prov:RADHA LORENZANA [facility] 06/14/24 Aripiprazole (Abilify) 10 Mg Tab, 10 MG PO QAM for 30 Days, #30 TAB 2 Refills Prov:RADHA LORENZANA [facility] 06/14/24 Quetiapine Fumerate (Seroquel) 50 Mg Tab, 1 TAB PO HS for 30 Days, #30 TAB 2 [facility] Carvedilol (COREG) 3.125 Mg Tab, 3.125 MG PO BID, #180 TAB Prov:SANDIP GUZMAN MD 05/31/24 Nifedipine (Nifedipine Er) 60 Mg Tab, 60 MG PO DAILY, #90 TAB Prov:SANDIP GUZMAN MD 05/31/24 Dapagliflozin Propanediol (Farxiga) 10 Mg Tab, 10 MG PO DAILY for 30 Days, #30 TAB 3 Refills Prov:WILL ROWLAND MD 08/26/21 Acyclovir (Acyclovir) 400 Mg Tab, 400 MG PO TID for 7 Days, #21 TAB Prov:WILL ROWLAND MD 08/26/21 Sacubitril-Valsartan (Entresto 24-26 mg) 1 Tab Tab, 1 TAB PO BID for 30 Days, #60 TAB 3 Refills Prov:WILL ROWLAND MD 08/16/21 Aspirin (Aspirin Low Strength) 81 Mg Chw, 81 MG PO DAILY for 30 Days, #30 TAB.CHEW 2 Refills Prov:WILL ROWLAND MD 08/16/21 Reported Medications Hydroxyzine Hcl (Hydroxyzine Hcl) 25 Mg Tab, 25 MG PO TIDPRN for 30 Days, MG 05/30/24 Discontinued Reported Medications Hydrochlorothiazide (Hydrochlorothiazide) 25 Mg Tab, 50 MG PO, TAB 05/30/24 Valacyclovir Hcl (Valacyclovir Hcl) 500 Mg Tab, 500 MG PO, TAB 05/30/24 Zolpidem Tartrate (Ambien) 10 Mg Tab, 5 MG PO HS, TAB 05/30/24 Aripiprazole (Abilify) 5 Mg Tab, 5 MG PO BID, TAB 02/27/22 Clonidine Hydrochloride (Clonidine Hcl) 0.1 Mg Tab 08/14/21 Discontinued Scripts Aspirin (Aspirin Adult Low Dose) 81 Mg Tab, 81 MG PO DAILY, #90 TAB Prov:SANDIP GUZMAN MD 05/31/24 Nifedipine (Nifedipine ER) 30 Mg Tab, 30 MG PO DAILY for 60 Days, #60 TAB Prov:THEE SANTIZO CERTIFIED NURSE 09/04/23 Clonidine Hydrochloride (Clonidine Hcl) 0.2 Mg Tab, 1 TAB PO BID, #30 TAB 0 Refills Prov:LUIS ALBERTO MANN PAC 05/12/22 Amlodipine Besylate (NORVASC TABLET) 5 Mg Tb, 10 MG PO DAILY for 90 Days, #180 TAB Prov:THEE SANTIZO CERTIFIED NURSE 02/28/22 Tramadol Hcl (Tramadol Hcl) 50 Mg Tab, 50 MG PO BID for 5 Days, #10 TAB Prov:JULIA SCHUMACHER MD 11/20/21 Metoclopramide Hcl (Reglan) 10 Mg Tab, 10 MG PO BID for 10 Days, #20 TAB Prov:JULIA SCHUMACHER MD 11/20/21 Hydralazine HCl (Hydralazine HCl) 25 Mg Tab, 50 MG PO TID for 30 Days, #90 TAB 3 Refills Prov:WILL ROWLAND MD 08/16/21 Hydralazine HCl (Hydralazine HCl) 25 Mg Tab, 25 MG PO BID for 60 Days, #120 TAB Prov:EMILIANO HARDWICK MD 01/22/19 Metoprolol Tartrate (LOPRESSOR TABLET) 50 Mg Tb, 50 MG PO BID for 60 Days, #120 TAB Prov:EMILIANO HARDWICK MD 01/22/19 Enalapril Maleate (Enalapril Maleate) 10 Mg Tab, 40 MG PO DAILY for 60 Days, #240 TAB Prov:EMILIANO HARDWICK MD 01/22/19 Information Source: Patient, Emergency Med Personnel Mode of Arrival: EMS Severity: Moderate Timing: Hours Duration: Since onset Prehospital treatment: 12 Lead EKG, 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, 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 Past Medical History PAST MEDICAL HISTORY: Anxiety, CHF, Depression, HTN, TIA Past Medical History (Other): ASD, medical noncompliance left vent ef 60% may 30 lvh pul HTN w/RVSP of 50ml August of 2021, left ventricular EF was 25% Surgical History: Denies all surgeries ALLIED HEALTH INSTRUCTOR History: No Pertinent ALLIED HEALTH INSTRUCTOR History Family History Family History: Family hx of HTN Social History Smoker: Non-Smoker Alcohol: Occasionally Drugs: Denies Drug Use Lives In: Home Gastrointestinal: reports: abdominal pain, nausea, vomiting All Other Systems: Reviewed and Negative (negative unless otherwise stated above or in HPI) Physical Exam General Appearance: Moderate Distress, Normal HEENT: Normal ENT Inspection, Pharynx Normal, TMs Normal Neck: Full Range of Motion, Non-Tender, Normal, Normal Inspection Respiratory: Chest Non-Tender, Lungs Clear, No Accessory Muscle Use, No Respiratory Distress, Normal Breath Sounds Cardiovascular: No Edema, No JVD, No Murmur, No Gallop, Normal Peripheral Pulses, Regular Rate/Rhythm Breast Exam: Deferred Gastrointestinal: No Organomegaly, Non Tender, No Pulsatile Mass, Normal Bowel Sounds, Soft Genitalia: Deferred Pelvic: Deferred Rectal: Deferred Extremities: No calf tenderness, Normal capillary refill, Normal inspection, Normal range of motion, Non-tender, No pedal edema Musculoskeletal : Apperance: Normal Neurologic: Alert, household 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 Was a procedure done?: No Differential Dx Considerations may include: gastritis, gastroenteritis, viral syndrome, spoiled food, , UTI, among others X-Ray, Labs, Meds, VS Vital Signs Date Time Temp Pulse Resp B/P (MAP) Pulse Ox O2 Delivery O2 Flow Rate FiO2 06/17/24 07:21 205/126 06/17/24 07:01 94 17 205/126 (152) 98 06/17/24 06:41 204/133 06/17/24 05:23 98.0 91 12 204/133 (156) 98 98.0 06/17/24 05:23 91 12 98 Room Air* 0 21 06/17/24 04:59 98.4 82 18 212/120 (150) 96 98.4 Lab Test 06/17/24 06:36 06/17/24 05:33 Range/Units Troponin I High Sensitivity 17 16 </=34 ng/L White Blood Count 11.6 H 4.4-10.8 10^3/uL Red Blood Count 4.94 4.0-5.20 10^6/uL Hemoglobin 11.1 L 12.2-16.2 g/dL Hematocrit 36.2 36.0-46.0 % Mean Corpuscular Volume 73.2 L 80.0-100.0 fL Mean Corpuscular Hemoglobin 22.4 L 28.0-32.0 pg Mean Corpuscular Hemoglobin Concent 30.6 L 32.0-36.0 g/dL Red Cell Distribution Width 17.7 H 11.8-14.3 % Platelet Count 359 140-450 10^3/uL Mean Platelet Volume 8.0 6.9-10.8 fL Neutrophils (%) (Auto) 89.2 H 37.0-80.0 % Lymphocytes (%) (Auto) 5.0 L 10.0-50.0 % Monocytes (%) (Auto) 5.2 0.0-12.0 % Eosinophils (%) (Auto) 0.3 0.0-7.0 % Basophils (%) (Auto) 0.3 0.0-2.0 % Neutrophils # (Auto) 10.3 H 1.6-8.6 10 ^3/uL Lymphocytes # (Auto) 0.6 0.4-5.4 10 ^3/uL Monocytes # (Auto) 0.6 0-1.3 10 ^3/uL Eosinophils # (Auto) 0 0-0.8 10 ^3/uL Basophils # (Auto) 0 0-0.2 10 ^3/uL Nucleated Red Blood Cells 0.1 % Sodium Level 137 136-145 mmol/L Potassium Level 3.9 3.5-5.1 mmol/L Chloride Level 106 98-107 mmol/L Carbon Dioxide Level 25 20-31 mmol/L Anion Gap 6 5-15 Blood Urea Nitrogen 14 9-23 mg/dL Creatinine 0.99 0.550-1.02 mg/dL Glomerular Filtration Rate Calc 77 >90 mL/min BUN/Creatinine Ratio 14.1 10.0-20.0 Serum Glucose 118 H 74-106 mg/dL Calcium Level 9.6 8.7-10.4 mg/dL Current Medications Medications (Trade) Dose Ordered Sig/Poli Route Start Time Stop Time Status Last Admin Clonidine HCl (Catapres Tablet) 0.2 mg ONCE ONCE PO 06/17/24 06:45 06/17/24 06:46 DC 06/17/24 06:41 Patient alert. Complaining of abdominal pain. Blood pressure elevated. Answering questions. Was given clonidine. WBC elevated. Possible colitis. Establish intravenous access. Was given fluids. Was given Flagyl. Explained to the patient. Continue to monitor. Time of 1ST Reevaluation: 05:50 Reevaluation 1ST: Unchanged Patient Education/Counseling: Diagnosis, Treatment Family Education/Counseling: No Family Present Additional Information Previous visit documents reviewed: June 16, 2024 encounter for HTN emergency The following tests were ordered, and results were reviewed by me: troponin, CXR, CBC, BMP Additional Information was gathered from interviewing the following independent historians: EMS I reviewed and agreed with the following test results read by other providers: CXR I discussed treatment and results with medical personnel and: Patient Departure 1 Departure Time of Disposition: 07:35 Impression: Primary Impression: Intractable abdominal pain Additional Impression: Hypertensive urgency Disposition: 09 ADMITTED INPATIENT Admit to: Med Surg Condition: Guarded Critical Care Note Critical Care Time?: Yes (45 min-critical care time only) Critical care comment: Control blood pressure Stability Stability form required: No Heart Score Heart Score: Heart Score Response (Comments) Value History N/A 0 EKG N/A 0 Age N/A 0 Risk Factors N/A 0 Troponin N/A 0 Total 0 I personally scribed for DARWIN DASILVA MD ([email or web address]) on 06/17/24 at 05:49. Electronically submitted by Linwood Rey ([email or web address]). DARWIN DASILVA MD Jun 17, 2024 05:49 OMAR GIBSON MD Jun 17, 2024 07:36
--- NOTE | 2024-06-17 06:07 | DVH ---
EXAM: XR Chest, 1 View CLINICAL INDICATION: htn urgency TECHNIQUE: Frontal view of the chest. COMPARISON: XY CHEST XRAY 1 VIEW on DOS: 06/11/24, XY CHEST XRAY 1 VIEW on DOS: 05/29/24, XY CHEST XR AY 1 VIEW on DOS: 09/03/23, XY CHEST PORTABLE on DOS: 09/01/23, XY CHEST PORTABLE on DOS: 07/09/22 FINDINGS: LUNGS AND PLEURAL SPACES: Pulmonary venous congestion. No consolidation. No pneumothorax. HEART: Unremarkable. No cardiomegaly. MEDIASTINUM: Unremarkable. Normal mediastinal contour. BONES/JOINTS: Unremarkable. No acute fracture. OTHER FINDINGS: . IMPRESSION: Pulmonary venous congestion.
[2024-06-17 06:12] LABS: Basophils # (auto) 0 10 ^3/uL (0-0.2); Basophils % (auto) 0.3 % (0.0-2.0); Eosinophils # (auto) 0 10 ^3/uL (0-0.8); Eosinophils % (auto) 0.3 % (0.0-7.0); Hemoglobin 11.1 g/dL (12.2-16.2); Lymphocytes # (auto) 0.6 10 ^3/uL (0.4-5.4); Monocytes # (auto) 0.6 10 ^3/uL (0-1.3); Monocytes % (auto) 5.2 % (0.0-12.0); Nucleated Red Blood Cells % 0.1 %
[2024-06-17 06:14] LABS: Hematocrit 36.2 % (36.0-46.0); Mean Corpuscular Hemoglobin 22.4 pg (28.0-32.0); Mean Corpuscular Hgb Conc. 30.6 g/dL (32.0-36.0); Mean Corpuscular Volume 73.2 fL (80.0-100.0); Neutrophils # (auto) 10.3 10 ^3/uL (1.6-8.6); Neutrophils % (auto) 89.2 % (37.0-80.0); Platelet Count (auto) 359 10^3/uL (140-450); Red Blood Cells 4.94 10^6/uL (4.0-5.20); Red Cell Distribution Width 17.7 % (11.8-14.3); White Blood Cell 11.6 10^3/uL (4.4-10.8)
[2024-06-17 06:24] LABS: Chloride 106 mmol/L (98-107); Potassium 3.9 mmol/L (3.5-5.1); Sodium 137 mmol/L (136-145)
[2024-06-17 06:25] LABS: Anion Gap 6 (5-15); Carbon Dioxide 25 mmol/L (20-31)
[2024-06-17 06:26] LABS: Calcium 9.6 mg/dL (8.7-10.4)
[2024-06-17 06:30] LABS: BUN/Creatinine Ratio 14.1 (10.0-20.0); Blood Urea Nitrogen 14 mg/dL (9-23)
[2024-06-17 06:32] LABS: Glucose 118 mg/dL (74-106)
[2024-06-17] MEDS: cloNIDine HCL 0.1 MG TAB PO ONE (06:41)
[2024-06-17] MEDS: SODIUM CHLORIDE 0.9% 1,000 ML IV ONE ×2 (07:45→07:47)
[2024-06-17] MEDS: ONDANSETRON HCL 4 MG/2 ML VIAL IV ONE (07:59)
[2024-06-17] MEDS: metroNIDAZOLE 500MG/100ML 100 ML IV ONE (07:59)
[2024-06-17] MEDS ORDERED: ONDANSETRON HCL 4 MG/2 ML VIAL IV PRN (08:30)
[2024-06-17] MEDS ORDERED: ACETAMINOPHEN 325 MG TAB PO PRN (08:30)
[2024-06-17] MEDS ORDERED: DOCUSATE SOD 100 MG CAP PO PRN (08:30)
[2024-06-17] MEDS ORDERED: NITROGLYCERIN 0.4 MG SL TAB SL PRN (08:30)
[2024-06-17] MEDS ORDERED: MORPHINE SULFATE INJ 2 MG/ml SYRG IV PRN (08:30)
--- NOTE | 2024-06-17 09:05 | DVH ---
CLINICAL INFORMATION: 34 years old, Female; colitis. TECHNIQUE: Axial CT images of the abdomen and pelvis were obtained without IV contrast. Coronal and s agittal reformatted images were obtained, reviewed, and stored. Evaluation of the parenchymal organs is limited without IV contrast. Evaluation of the bowel and mesentery is limited without oral contras t. All CT scans at this medical facility are performed using dose modulation techniques as appropriat e to a performed exam including the following: Automated exposure control was utilized; adjustment of the MA and/or KV according to patient size; and use of iterative reconstruction technique. CTDIvol = 6.03 mGy DLP = 340.46 mGy-cm COMPARISON: CT CT AB PEL WO CON-NO ORAL OR IV on DOS: 06/10/24, CT CT AB PEL WO CON-NO ORAL OR IV on D OS: 09/01/23, CT CT AB PEL WO CON-NO ORAL OR IV on DOS: 06/18/22 FINDINGS: Lung bases: Atelectasis in the lung bases. Respiratory motion artifact limits evaluation. Liver: Grossly unremarkable in its noncontrast enhanced appearance. No abnormal density or focal lesi on identified. Biliary: No calcified gallstones or biliary ductal dilatation. Spleen: Unremarkable. Pancreas: Grossly unremarkable in its noncontrast enhanced appearance. Adrenal glands: Unremarkable. No mass. Kidneys: No hydronephrosis. No renal or ureteral calculi. Aorta/Vascular: No aneurysm or significant calcification. Retroperitoneum: No mass or lymphadenopathy. Bowel/mesentery: Nonspecific nondilated fluid-filled small bowel loops. No small bowel obstruction Ap pendix is visualized and measures 6 mm in diameter with no periappendiceal stranding to suggest acute appendicitis. Scattered colonic diverticula without adjacent inflammatory changes to suggest diverti culitis. Pelvic organs: Uterus is anteverted. Trace free fluid in the cul-de-sac, likely physiologic. Bladder: Unremarkable. No mass. Abdominal wall: No mass or hernia. Bones: No acute fracture or suspicious intraosseous lesion. IMPRESSION: 1. Nonspecific nondilated fluid-filled small bowel loops. Findings may be seen with ileus or enteriti s in the appropriate clinical setting. No small bowel obstruction. 2. Appendix is visualized, measuring 6 mm in diameter with no periappendiceal stranding to suggest ac lyssa appendicitis. Similar in appearance compared to the prior CT. 3. Scattered colonic diverticula without adjacent inflammatory changes to suggest diverticulitis.
[2024-06-17] MEDS ORDERED: hydrALAZINE HCL 20 MG/ML VL IV PRN (09:15)
--- NOTE | 2024-06-17 09:16 | DVHHP2 ---
History of Present Illness Reason for Visit: Abdominal Pain History of Present Illness Bennie Porter is a 34-year-old female with past medical history of CHF, anxiety, depression, hypertension, and pulmonary hypertension who comes in with complaints of abdominal pain. Patient was admitted here for hypertensive urgency and discharged yesterday. She states she was not able to tile picker her medications from the pharmacy yet. She states she started having abdominal pain, nausea, and vomiting, and that is what brought her back to the hospital. 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 Psych: Anxiety, Depression Past Surgical History: Other (skin graft) Smoke: No ALCOHOL: none Drugs: None Lives: with Family Domestic Violence: Neg Review of Systems Constitutional: No: Fever, Chills, Sweats, Weakness, Malaise, Other Eyes: No: Pain, Vision change, Conjunctivae inflammation, Eyelid inflammation, Other, Redness ENT: No: Ear pain, Ear discharge, Nose pain, Nose discharge, Nose congestion, Mouth pain, Mouth swelling, Throat pain, Throat swelling, Other Respiratory: No: Cough, Dry, Shortness of breath, SOB with excertion, Wheezing, Hemoptysis, Pleuritic Pain, Sputum, Wheezing, Other Cardiovascular: No: Chest Pain, Palpitations, Orthopnea, Paroxysmal Noc. Dyspnea, Edema, Lt Headedness, Other Gastrointestinal: Nausea, Vomiting, Abdominal Pain; No: Diarrhea, Constipation, Melena, Hematochezia, Other Genitourinary: No Dysuria, No Frequency, No Incontinence, No Hematuria, No Retention, No Other Musculoskeletal: No: other, neck pain, shoulder pain, arm pain, back pain, hand pain, leg pain, foot pain Skin: No: Rash, Lesions, Jaundice, Bruising, Other Neurological: No: Weakness, Numbness, Incoordination, Change in speech, Confusion, Seizures, Other Allergies: Coded Allergies: NO KNOWN ALLERGIES (Unverified , 08/31/21) Medications Current Medications Medications Dose Ordered Sig/Poli Route Start Time Stop Time Status Last Admin Dose Admin Carvedilol 3.125 mg BID PO 06/17/24 10:00 UNV Sacubitril/ Valsartan 1 tab BID PO 06/17/24 10:00 UNV Spironolactone 50 mg DAILY PO 06/17/24 10:00 UNV Patient Own Medication 10 mg QAM PO 06/18/24 07:00 UNV Patient Own Medication 81 mg DAILY PO 06/17/24 10:00 UNV Patient Own Medication 1 tab QAM PO 06/18/24 07:00 UNV Patient Own Medication 25 mg TIDPRN PO 06/17/24 14:00 UNV Patient Own Medication 60 mg DAILY PO 06/17/24 10:00 UNV Patient Own Medication 1 tab HS PO 06/17/24 22:00 UNV Sodium Chloride 10 ml Q8HR IV 06/17/24 14:00 UNV Acetaminophen/ Hydrocodone Bitart 1 tab Q4HP PRN PO 06/17/24 08:30 UNV Ondansetron HCl 4 mg Q4HP PRN IV 06/17/24 08:30 UNV Docusate Sodium 100 mg BIDPRN PRN PO 06/17/24 08:30 UNV Acetaminophen 650 mg Q6HP PRN PO 06/17/24 08:30 UNV Nitroglycerin 0.4 mg Q5MINP PRN SL 06/17/24 08:30 UNV Morphine Sulfate 2 mg Q30M PRN IV 06/17/24 08:30 UNV Exam Vital Signs Vital Signs Date Time Temp Pulse Resp B/P (MAP) Pulse Ox O2 Delivery O2 Flow Rate FiO2 06/17/24 07:21 205/126 06/17/24 07:01 94 17 98 06/17/24 05:23 98.0 98.0 06/17/24 05:23 Room Air* 0 21 General Appearance: Alert, Oriented X3, Cooperative, moderate distress HEENT: Atraumatic, PERRLA Respiratory: Clear to auscultation, Normal air movement Cardiovascular: Regular rate, Normal S1, Normal S2, No murmurs Abdominal: Normal bowel sounds, Soft, Other (C/O pain) Extremities: No clubbing, No cyanosis, No edema, Normal pulses, No tenderness/swelling Skin: No rashes, No breakdown, No significant lesion Neuro: Normal gait, Normal speech, Strength at 5/5 X4 ext, Normal tone Psych/Mental Status: Mental status NL, Mood NL Labs/Xrays Labs Test 06/17/24 06:36 06/17/24 05:33 Range/Units Troponin I High Sensitivity 17 </=34 ng/L White Blood Count 11.6 H 4.4-10.8 10^3/uL Red Blood Count 4.94 4.0-5.20 10^6/uL Hemoglobin 11.1 L 12.2-16.2 g/dL Hematocrit 36.2 36.0-46.0 % Mean Corpuscular Volume 73.2 L 80.0-100.0 fL Mean Corpuscular Hemoglobin 22.4 L 28.0-32.0 pg Mean Corpuscular Hemoglobin Concent 30.6 L 32.0-36.0 g/dL Red Cell Distribution Width 17.7 H 11.8-14.3 % Platelet Count 359 140-450 10^3/uL Mean Platelet Volume 8.0 6.9-10.8 fL Neutrophils (%) (Auto) 89.2 H 37.0-80.0 % Lymphocytes (%) (Auto) 5.0 L 10.0-50.0 % Monocytes (%) (Auto) 5.2 0.0-12.0 % Eosinophils (%) (Auto) 0.3 0.0-7.0 % Basophils (%) (Auto) 0.3 0.0-2.0 % Neutrophils # (Auto) 10.3 H 1.6-8.6 10 ^3/uL Lymphocytes # (Auto) 0.6 0.4-5.4 10 ^3/uL Monocytes # (Auto) 0.6 0-1.3 10 ^3/uL Eosinophils # (Auto) 0 0-0.8 10 ^3/uL Basophils # (Auto) 0 0-0.2 10 ^3/uL Nucleated Red Blood Cells 0.1 % Sodium Level 137 136-145 mmol/L Potassium Level 3.9 3.5-5.1 mmol/L Chloride Level 106 98-107 mmol/L Carbon Dioxide Level 25 20-31 mmol/L Anion Gap 6 5-15 Blood Urea Nitrogen 14 9-23 mg/dL Creatinine 0.99 0.550-1.02 mg/dL Glomerular Filtration Rate Calc 77 >90 mL/min BUN/Creatinine Ratio 14.1 10.0-20.0 Serum Glucose 118 H 74-106 mg/dL Calcium Level 9.6 8.7-10.4 mg/dL EXAM: XR Chest, 1 View FINDINGS: LUNGS AND PLEURAL SPACES: Pulmonary venous congestion. No consolidation. No pneumothorax. HEART: Unremarkable. No cardiomegaly. MEDIASTINUM: Unremarkable. Normal mediastinal contour. BONES/JOINTS: Unremarkable. No acute fracture. OTHER FINDINGS: . IMPRESSION: Pulmonary venous congestion. CT of abd/pelvis ordered, waiting for the test to be completed. 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 CHIEF Procedure Category Date Status Time Carvedilol Tablet PHA 06/17/24 Logged (Coreg Tablet) 10:00 Sacubitril-Valsartan PHA 06/17/24 Logged (Entresto 24-26 Mg 10:00 Spironolactone PHA 06/17/24 Logged (Aldactone) 10:00 (Nf) Aripiprazole PHA 06/18/24 Logged (Abilify) 07:00 (Nf) Aspirin (Aspirin PHA 06/17/24 Logged Low Strength) 10:00 (Nf) Escitalopram PHA 06/18/24 Logged Oxalate (Lexapro) 07:00 (Nf) Hydroxyzine Hcl PHA 06/17/24 Logged 14:00 (Nf) Nifedipine PHA 06/17/24 Logged (Nifedipine Er) 10:00 (Nf) Quetiapine PHA 06/17/24 Logged Fumerate (Seroquel) 22:00 Admit ADMIT 06/17/24 Transmitted 08:30 Code Status CODE 06/17/24 Transmitted 08:30 2 Gm Sodium Diet DIET 06/17/24 Transmitted Breakfast Sodium Chloride Lock PHA 06/17/24 Logged (Saline Lock Ns) 14:00 Hydrocodone-Acet PHA 06/17/24 Logged 5/325mg Tab ([place] 08:30 Ondansetron Hcl PHA 06/17/24 Logged (Zofran) 08:30 Docusate Sodium PHA 06/17/24 Logged Capsule (Colace 08:30 Complete Blood Count LAB 06/18/24 Verified 04:00 Comprehensive LAB 06/18/24 Verified Metabolic Panel 04:00 Condition: Critical CASSANDRA 06/17/24 In Process 08:30 Acetaminophen Tablet PHA 06/17/24 Logged (Tylenol Tablet) 08:30 Nitroglycerin PHA 06/17/24 Logged Sublingual (Ntrostat 08:30 Morphine Sulfate PHA 06/17/24 Logged Injection 08:30 Stat Ekg For Chest [facility] 06/17/24 In Process Pain 08:30 Notify Of Changes [facility] 06/17/24 In Process From Base 08:30 Financial Dealers For [facility] 06/17/24 In Process 24 Hours 08:30 Emergency Dysrhythmia [facility] 06/17/24 In Process Protocol 08:30 Rhythm Strips Once [facility] 06/17/24 In Process Every Shift 08:30 Oxygen By Nasal RT 06/17/24 Transmitted Cannula 08:30 Date of Service: Jun 17, 2024 Billing Provider: ZEINAB FAITH Common Visit Codes: [id number] INP/OBS CARE (MOD) ZEINAB FAITH Jun 17, 2024 09:16
[2024-06-17] MEDS: ASPirin 81 mg TAB PO SCH (09:52)
[2024-06-17] MEDS: SPIRONOLACTONE 25 MG TAB PO SCH (09:52)
[2024-06-17] MEDS: CARVEDILOL 3.125 MG TAB PO SCH (09:53)
[2024-06-17] MEDS: NIFEdipine ER 30 MG TAB PO SCH (09:54)
[2024-06-17] MEDS: SACUBITRIL-VALSARTAN 24mg/26mg TAB PO SCH (09:57)
[2024-06-17 10:07] VITALS: PULSE 113; RESP 18; O2SAT 99
[2024-06-17 11:29] VITALS: BP 124/87; PULSE 76; PULSE 82; RESP 16; RESP 18; TEMP 98; O2SAT 98; O2SAT 99
--- NOTE | 2024-06-17 12:50 | DVHPN2 ---
Progress Note Date Seen: Jun 17, 2024 Medical Necessity Reason Pt with a Central, PICC or Fol: No Subjective Patient reports: No new complaints Review of Systems: HEENT:Normal, CVS:Normal, RESPIRATORY:Normal, GI:Normal, :Normal, MSK:Normal, NEURO:Normal Objective vital signs Vital Sign Date Time Temp Pulse Resp B/P (MAP) Pulse Ox O2 Delivery O2 Flow Rate FiO2 06/17/24 10:33 82 137/93 06/17/24 10:07 18 99 Room Air* 0 21 06/17/24 05:23 98.0 98.0 medications Current Medications Medications Dose Ordered Sig/Poli Route Start Time Stop Time Status Last Admin Dose Admin Carvedilol 3.125 mg BID PO 06/17/24 10:00 06/17/24 09:53 3.125 MG Sacubitril/ Valsartan 1 tab BID PO 06/17/24 10:00 06/17/24 09:57 1 TAB Spironolactone 50 mg DAILY PO 06/17/24 10:00 06/17/24 09:52 50 MG Patient Own Medication 10 mg QAM PO 06/18/24 07:00 Aspirin 81 mg DAILY PO 06/17/24 10:00 06/17/24 09:52 81 MG Patient Own Medication 1 tab QAM PO 06/18/24 07:00 Hydroxyzine Pamoate 25 mg TIDPRN PO 06/17/24 14:00 Nifedipine 60 mg DAILY PO 06/17/24 10:00 06/17/24 09:54 60 MG Quetiapine Fumarate 50 mg HS PO 06/17/24 22:00 Sodium Chloride 10 ml Q8HR IV 06/17/24 14:00 Acetaminophen/ Hydrocodone Bitart 1 tab Q4HP PRN PO 06/17/24 08:30 Ondansetron HCl 4 mg Q4HP PRN IV 06/17/24 08:30 Docusate Sodium 100 mg BIDPRN PRN PO 06/17/24 08:30 Acetaminophen 650 mg Q6HP PRN PO 06/17/24 08:30 Nitroglycerin 0.4 mg Q5MINP PRN SL 06/17/24 08:30 Morphine Sulfate 2 mg Q30M PRN IV 06/17/24 08:30 Hydralazine HCl 10 mg Q6HP PRN IV 06/17/24 09:15 Examination: GENERAL:Normal, HEENT:Normal, NECK:Normal, LUNGS:Normal, CVS:Normal, ABDOMEN:Normal, MSK:Normal, SKIN:Normal, NEURO:Normal, :Normal laboratory and microbiology Laboratory Tests 06/17/24 05:33 Test 06/17/24 05:33 Range/Units Serum Glucose 118 H 74-106 mg/dL Problem List/Assessment/Plan Problem List/Assessment/Plan #1abd pain ?enteritis: check lipase level #2 hypertensive urgency: adjust meds #3 acute on chronic diastolic heart failure: cont meds #4 depression advance care planning- full code- time spent 19 mins Plan discussed with: Patient My Orders My Orders Orders - WILL ROWLAND MD Procedure Category Date Status Time Urinalysis LAB 06/17/24 Uncollected 12:43 Complete Blood Count LAB 06/18/24 Verified 06:00 Comprehensive LAB 06/18/24 Verified Metabolic Panel 06:00 Lipase LAB 06/18/24 Verified 05:00 Hydrochlorothiazide PHA 06/17/24 Verified Tablet (Hydrochlorot 12:45 Hydrochlorothiazide PHA 06/18/24 Verified Tablet (Hydrochlorot 10:00 Citalopram Tablet PHA 06/17/24 Verified (Celexa Tablet) 12:45 Citalopram Tablet PHA 06/18/24 Verified (Celexa Tablet) 10:00 Date of Service: Jun 17, 2024 Billing Provider: WILL ROWLAND MD Common Visit Codes: [id number] INP/OBS CARE(HIGH) Secondary Visit Codes: [id number] CARE PLAN 30 MINUTES WILL ROWLAND MD Jun 17, 2024 12:50
[2024-06-17] MEDS: SODIUM CHLOR 0.9% PF (SALINE LOCK) 10ML VIAL/SYR IV SCH (13:10)
[2024-06-17 15:02] LABS: Urine Bacteria FEW /hpf (None Seen); Urine Blood Negative /uL (Negative); Urine Clarity Turbid (Clear); Urine Mucus FEW (None Seen); Urine Protein, UAD 1+ (Negative); Urine Specific Gravity 1.025 (1.001-1.035); Urine Squamous Epithelial Cell MANY /hpf (<5); Urine Urobilinogen Normal (Negative); Urine WBC 14 /HPF (0-5); Urine pH 5.5 (5.0-9.0)
[2024-06-17 15:04] LABS: Urine Color Yellow (Yellow)
[2024-06-17] MEDS: CITALOPRAM HYDROBR 20 MG TAB PO ONE (15:27)
[2024-06-17] MEDS: hydrOXYzine 25 MG TAB or CAP PO SCH (15:27)
[2024-06-17] MEDS: hydroCHLOROthiazide 25 MG TAB PO ONE (15:44)
[2024-06-17 19:00] VITALS: BP 115/80; PULSE 20; PULSE 89; RESP 20; TEMP 98.2; O2SAT 89; O2SAT 98
[2024-06-17] MEDS: QUEtiapine FUMARATE 25 MG TAB PO SCH (22:30)
[2024-06-18 06:20] LABS: Hemoglobin 10.3 g/dL (12.2-16.2); Monocytes # (auto) 1.1 10 ^3/uL (0-1.3); Nucleated Red Blood Cells % 0.1 %
[2024-06-18 06:23] LABS: Basophils # (auto) 0 10 ^3/uL (0-0.2); Basophils % (auto) 0.3 % (0.0-2.0); Eosinophils # (auto) 0.2 10 ^3/uL (0-0.8); Eosinophils % (auto) 2.5 % (0.0-7.0); Hematocrit 32.5 % (36.0-46.0); Lymphocytes % (auto) 20.1 % (10.0-50.0); Mean Corpuscular Hemoglobin 22.7 pg (28.0-32.0); Mean Corpuscular Hgb Conc. 31.6 g/dL (32.0-36.0); Monocytes % (auto) 11.3 % (0.0-12.0); Neutrophils # (auto) 6.6 10 ^3/uL (1.6-8.6); Neutrophils % (auto) 65.8 % (37.0-80.0); Platelet Count (auto) 338 10^3/uL (140-450); Red Blood Cells 4.52 10^6/uL (4.0-5.20); Red Cell Distribution Width 17.3 % (11.8-14.3)
[2024-06-18] MEDS: HYDROcodone-ACET 5/325MG TAB PO PRN (06:31)
[2024-06-18 06:33] LABS: Alanine Aminotransferase 13 U/L (7-40); Albumin 3.8 g/dL (3.2-4.8); Alkaline Phosphatase 63 U/L (46-116); Anion Gap 6 (5-15); BUN/Creatinine Ratio 12.1 (10.0-20.0); Blood Urea Nitrogen 13 mg/dL (9-23); Calcium 9.2 mg/dL (8.7-10.4); Carbon Dioxide 27 mmol/L (20-31); Chloride 104 mmol/L (98-107); Glucose 87 mg/dL (74-106); Potassium 3.9 mmol/L (3.5-5.1); Sodium 137 mmol/L (136-145); Total Protein 6.6 g/dL (5.7-8.2)
[2024-06-18 06:34] LABS: Bilirubin, Total 0.7 mg/dL (0.2-1.0)
[2024-06-18 06:43] LABS: Aspartate Aminotransferase 10 U/L (13-40); Lipase 56 U/L (12-53)
[2024-06-18] MEDS ORDERED: ARIPIPRAZOLE 10 MG PO SCH (07:00)
[2024-06-18 08:22] VITALS: BP 137/90; PULSE 74; RESP 18; TEMP 98; O2SAT 98
[2024-06-18] MEDS: CITALOPRAM HYDROBR 20 MG TAB PO SCH (11:15)
[2024-06-18] MEDS: hydroCHLOROthiazide 25 MG TAB PO SCH (11:17)
--- NOTE | 2024-06-18 11:57 | DVHDS2 ---
Discharge Summary Date of Admission Jun 17, 2024 at 08:30 Date of Discharge: Jun 18, 2024 Labs/Diagnostic Data: Laboratory Results Test 06/18/24 05:45 06/17/24 14:52 06/17/24 08:56 White Blood Count 10.0 10^3/uL (4.4-10.8) Red Blood Count 4.52 10^6/uL (4.0-5.20) Hemoglobin 10.3 g/dL (12.2-16.2) Hematocrit 32.5 % (36.0-46.0) Mean Corpuscular Volume 72.0 fL (80.0-100.0) Mean Corpuscular Hemoglobin 22.7 pg (28.0-32.0) Mean Corpuscular Hemoglobin Concent 31.6 g/dL (32.0-36.0) Red Cell Distribution Width 17.3 % (11.8-14.3) Platelet Count 338 10^3/uL (140-450) Mean Platelet Volume 7.7 fL (6.9-10.8) Neutrophils (%) (Auto) 65.8 % (37.0-80.0) Lymphocytes (%) (Auto) 20.1 % (10.0-50.0) Monocytes (%) (Auto) 11.3 % (0.0-12.0) Eosinophils (%) (Auto) 2.5 % (0.0-7.0) Basophils (%) (Auto) 0.3 % (0.0-2.0) Neutrophils # (Auto) 6.6 10 ^3/uL (1.6-8.6) Lymphocytes # (Auto) 2.0 10 ^3/uL (0.4-5.4) Monocytes # (Auto) 1.1 10 ^3/uL (0-1.3) Eosinophils # (Auto) 0.2 10 ^3/uL (0-0.8) Basophils # (Auto) 0 10 ^3/uL (0-0.2) Nucleated Red Blood Cells 0.1 % Sodium Level 137 mmol/L (136-145) Potassium Level 3.9 mmol/L (3.5-5.1) Chloride Level 104 mmol/L (98-107) Carbon Dioxide Level 27 mmol/L (20-31) Anion Gap 6 (5-15) Blood Urea Nitrogen 13 mg/dL (9-23) Creatinine 1.07 mg/dL (0.550-1.02) Glomerular Filtration Rate Calc 70 mL/min (>90) BUN/Creatinine Ratio 12.1 (10.0-20.0) Serum Glucose 87 mg/dL (74-106) Calcium Level 9.2 mg/dL (8.7-10.4) Total Bilirubin 0.7 mg/dL (0.2-1.0) Aspartate Amino Transferase (AST) 10 U/L (13-40) Alanine Aminotransferase (ALT) 13 U/L (7-40) Alkaline Phosphatase 63 U/L (46-116) Total Protein 6.6 g/dL (5.7-8.2) Albumin 3.8 g/dL (3.2-4.8) Lipase 56 U/L (12-53) Urine Color Yellow (Yellow) Urine Clarity Turbid (Clear) Urine pH 5.5 (5.0-9.0) Urine Specific Jenkins 1.025 (1.001-1.035) Urine Protein 1+ (Negative) Urine Ketones Trace (Negative) Urine Blood Negative /uL (Negative) Urine Nitrite Negative (Negative) Urine Bilirubin Negative (Negative) Urine Urobilinogen Normal mg/dL (Negative) Urine Leukocyte Esterase 2+ /uL (Negative) Urine RBC 5 /hpf (0 - 4) Urine Microscopic WBC 14 /HPF (0-5) Urine Squamous Epithelial Cells Many /hpf (<5) Urine Bacteria Few /hpf (None Seen) Urine Mucus Few (None Seen) Urine Glucose 3+ mg/dL (Normal) Troponin I High Sensitivity 17 ng/L (</=34) Other Laboratory Tests 06/18/24 05:45 Brief Hx & Hospital Course: see dictated note Condition at Discharge: Fair Final Diagnosis/Problems List htn Discharge Disposition: Home Discharge Instruct/Medications Diet: Cardiac 2g Na,low cholest Activity: No Restrictions, As Tolerated Follow Up/Referral: fu with pcp in 1 wk Medications: resume home meds except change in coreg dose script to pharmacy Discharge Statement: "Patient was advised to return to the ER or call 911 if any headaches, dizziness, shortness of breath, chest pain, abdominal pain, bleeding, fevers, or worsening of medical condition. Patient was counseled about treatment plan, medications, possible side effects, patientverbalized understanding. All questions were answered to the best of my ability. This discharge took greater then 30 minutes in planning, reviewing documentation, counseling the patient, and discussing with other team members." ASSESSMENT ASSESSMENT Assessment htn Date of Service: Jun 18, 2024 Billing Provider: WILL ROWLAND MD Common Visit Codes: 58292-TAL/OBS DISCH DAY >30min WILL ROWLAND MD Jun 18, 2024 11:57
[2024-06-18] MEDS ORDERED: HYDR25TA5 PO (12:00)
[2024-06-18] MEDS ORDERED: NITR-87 PO (12:00)
[2024-06-18] MEDS ORDERED: ZOLP10TA PO (12:00)
[2024-06-18] MEDS ORDERED: CARV6.2517 PO (12:00)
--- NOTE | 2024-06-18 12:12 | DVHDS ---
DATE OF DISCHARGE: 06/18/2024 The patient is a 34-year-old lady who was recently discharged from the hospital, who came with complaints of abdominal pain and elevated blood pressure. The patient has history of congestive heart failure, depression, anxiety, and hypertension. HOSPITAL COURSE: The patient's blood pressure was elevated at 212/120. The patient had evidence of urinary tract infection. The patient's recent echocardiogram done showed ejection fraction of 60% with pulmonary hypertension. The patient's blood pressure is improved. She will be discharged home to resume her home medications except changing the Coreg dose. The patient will now be placed on Coreg 6.25 mg p.o. b.i.d., hydrochlorothiazide 25 mg daily, and Macrobid 100 mg p.o. b.i.d. for seven days along with Ambien p.r.n. for sleep. She will resume the rest of her home medications. The patient had CT abdomen that showed nonspecific fluid-filled bowel loops. Chest x-ray that was done showed pulmonary venous congestion. FINAL DIAGNOSES: * Hypertensive urgency. * Abdominal pain, questionable enteritis. * Urinary tract infection. * Pulmonary hypertension. * Anxiety/depression. * Gaaxn-lf-furricy diastolic heart failure. Time spent in discharge planning and review of plan with the patient and nursing was 38 minutes. MD HANANE Clayton/BRETT TID: [id number] RECEIPT: [id number]
[2024-06-18 12:31] VITALS: BP 138/90; PULSE 74; RESP 18; TEMP 98; O2SAT 98
== END 2024-06-18 13:30 | disposition home or self-care (01) | DRG 391 ==
LOC: EDBD 04:52 → ER 04:52 → OVERFLOW 08:30
PROVIDERS: ADMIT Internal Medicine; ATTEND Internal Medicine
DX: A09 Infectious gastroenteritis and colitis, unspecified (principal); I50.33 Acute on chronic diastolic (congestive) heart failure; N39.0 Urinary tract infection, site not specified; I16.0 Hypertensive urgency; I11.0 Hypertensive heart disease with heart failure; F32.A Depression, unspecified; F41.9 Anxiety disorder, unspecified; I27.20 Pulmonary hypertension, unspecified; Z79.899 Other long term (current) drug therapy; Z91.199 Patient's noncompliance with other medical treatment and regimen due to unspecified reason; Z86.73 Personal history of transient ischemic attack (TIA), and cerebral infarction without residual deficits; Z82.49 Family history of ischemic heart disease and other diseases of the circulatory system
CPT/HCPCS: 36415; 71045; 74176; 80048; 80053; 81001; 83690; 84484; 85025; 87081; 96365; 96375; 99291; G0378; J2405; J3490